=== PATIENT | female | born 1980 | race Caucasian/White ===

== ENCOUNTER 2020-01-27 01:12 | Emergency (ER) | payer SELFPAY ==
--- NOTE | ~2020-01-27 | CT_ITS ---
EXAMINATION: CT lumbar spine wo con DATE: 01/27/2020 01:54 INDICATION: Severe low back pain TECHNIQUE: Computed tomography (CT) of the lumbar spine was performed without intravenous contrast. T he dose-length product (DLP) was 1209.73 mGy-cm. Iterative reconstruction was used. COMPARISON: None FINDINGS: There is no fracture. The vertebral body heights and alignment are maintained. Mild loss of intervertebral disc space height is noted. Small degenerative osteophytes project from the anterior endplates of multiple vertebral bodies. IMPRESSION: 1. Mild lumbar spondylosis without acute findings. Reviewed, dictated and finalized at location A.
[2020-01-27 01:13] VITALS: BP 139/93; PULSE 98; RESP 16; TEMP 36.6; O2SAT 98
--- NOTE | 2020-01-27 01:15 | ED.BACK ---
HPI - Back Pain/Injury General Chief Complaint: Back Pain/Injury Stated Complaint: back pain Time Seen by Provider: 01/27/20 01:15 Source: patient Mode of arrival: ambulatory Limitations: no limitations History of Present Illness HPI Narrative: Patient is a 39-year-old female who presents for evaluation of severe back pain. Patient reports the back pain began a week ago, it started suddenly when she bent to pick something up from her refrigerator. Patient denies lifting anything heavy. She felt a popping sensation in her back, and has had pain in the middle lower back for 7 days, worsening. Pain is now sharp in nature, no burning type pain. No radiation into the buttocks. Patient reports worsening pain with movement. She denies fever, chills, fall, injury, no saddle anesthesia. No difficulty with bowel or bladder function. No history of cancer. Patient denies history of IV drug abuse. Patient denies urinary symptoms. Patient reports the pain has been so severe it is caused her to be nauseated with several episodes of nonbloody, nonbilious emesis. Related Data Allergies Allergy/AdvReac Type Severity Reaction Status Date / Time Penicillins Allergy Mild Verified 02/05/18 19:59 Review of Systems Review of Systems: Narrative: CONSTITUTIONAL: Denies fever CARDIOVASCULAR: Denies chest pain RESPIRATORY: Denies cough or dyspnea. GASTROINTESTINAL: Denies abdominal pain, reports nausea and vomiting SKIN: Denies rash MUSCULOSKELETAL: Reports lower lumbar pain NEUROLOGIC: Denies headache PMFSH Past Medical History Medical History (Updated 01/27/20 @ 03:22 by Rupali Jernigan MD) ADHD Hypothyroidism Surgical History Surgical History (Updated 01/27/20 @ 01:25 by Rupali Jernigan MD) H/O nasal septoplasty Social History Social History (Updated 01/27/20 @ 01:25 by Rupali Jernigan MD) Smoking status: Current every day smoker Tobacco type: cigarettes Alcohol intake: former Substance use: never Gender identity (if verbalized by the patient): Female Exam Narrative: Exam Narrative: GENERAL: Awake, alert, conversant HEAD: Normocephalic, atraumatic. EYES: PERRLA and EOMI. ENT: Nares clear, no rhinorrhea or epistaxis. Mucous membranes moist. NECK: Supple. CHEST: No respiratory distress, breathing even and non labored HEART: Regular rate, sinus rhythm ABDOMEN:Non distended, non tender Spine: No cervical spine tenderness. No thoracic spine tenderness. Positive lumbar midline tenderness about level of L4, L5. EXTREMITIES: Normal range of motion. No edema. SKIN: Warm, dry, no rash. NEURO:No focal deficits. Alert and oriented x3. Ambulatory with a narrow base, steady gait. Intact EHL/FHL strength bilaterally. Intact distal sensation. Course Vital Signs Vital signs: Vital Signs Temperature 36.6 C 01/27/20 01:13 Pulse Rate 98 01/27/20 01:13 Respiratory Rate 16 01/27/20 01:13 Blood Pressure 139/93 H 01/27/20 01:13 Pulse Oximetry 98 01/27/20 01:13 Temperature 36.6 C 01/27/20 01:13 Pulse Rate 89 01/27/20 02:35 Respiratory Rate 16 01/27/20 02:35 Blood Pressure 132/88 01/27/20 02:35 Pulse Oximetry 99 01/27/20 02:35 MDM - Back Pain/Injury MDM Narrative Medical decision making narrative: Given History and Exam the patient appears to be at low risk for Spinal Cord Compression Syndrome, Vertebral Malignancy/Mets, acute Spinal Fracture, Vertebral Osteomyelitis, Epidural Abscess, Infected or Obstructing Kidney Stone. Their presentation appears most likely to be secondary to non-emergent musculoskeletal etiology vs non-emergent disc herniation. Pain is reproducible, and patient has no other high risk factors such as history of malignancy, weight loss, infectious symptoms. ED Workup: No electrolyte derangement. No severe leukocytosis. No UTI. No acute vertebral findings on imaging. Pt with blood in UA and may have a kidney stone, although given pain is reproducible and wors
[2020-01-27] MEDS: MORPHINE SULFATE 4 MG/ML INJ IV PUSH (01:39)
[2020-01-27] MEDS: SODIUM CHLORIDE 0.9% IV 1,000 ML 999 ML IV CONT (01:39)
[2020-01-27] MEDS: ONDANSETRON INJ 4 MG/2 ML VIAL IV PUSH (01:40)
[2020-01-27] MEDS: KETOROLAC 15 MG/ML VIAL (*BKC) IV PUSH (01:44)
--- NOTE | 2020-01-27 01:49 | PC.NURSE ---
pt to ct via stretcher
[2020-01-27 02:02] LABS: Basophils Absolute Auto 0.1 K/mm3 (0.0-0.1); Basophils Percent Auto 0.9 % (0.2-1.2); Eosinophils Absolute Auto 0.2 K/mm3 (0-0.3); Eosinophils Percent Auto 2.2 % (0-4.4); Hematocrit 39.8 % (37.0-47.0); Hemoglobin 13.1 g/dL (12.0-15.0); Immature Granulocyte Absolute 0.03 K/mm3 (0.00-0.031); Immature Granulocyte Percent A 0.3 % (0-0.5); Lymphocytes Absolute Auto 2.95 K/mm3 (0.9-3.2); Lymphocytes Percent Auto 27.7 % (18.3-44.2); Mean Corpuscular HGB Conc 32.9 g/dl (32-36); Mean Corpuscular Hemoglobin 29.6 pg (26-34); Mean Platelet Volume 11.1 fl (7.4-10.4); Monocytes Absolute Auto 1.1 K/mm3 (0.1-0.6); Monocytes Percent Auto 10.6 % (2.6-8.5); Neutrophils Absolute Auto 6.2 K/mm3 (1.3-6.7); Neutrophils Percent Auto 58.3 % (45.5-73.1); Platelet Count Result 313 k/mm3 (150-375); Red Blood Count 4.42 M/mm3 (4.2-5.4); Red Cell Distribution Width 13.6 % (11.5-14.5); White Blood Count 10.6 K/mm3 (4.5-10.0)
[2020-01-27 02:20] LABS: Alanine Aminotransferase 15 U/L (4-35); Albumin Level 4.3 g/dL (3.5-5.1); Alkaline Phosphatase 76 U/L (38-126); Anion Gap 11.7 mmol/L (7-16); Aspartate Amino Transferase 19 U/L (14-36); Bilirubin,Total 0.4 mg/dL (0.2-1.3); Blood Urea Nitrogen 14 mg/dL (7-17); Calcium 8.9 mg/dL (8.4-10.2); Carbon Dioxide 26 mmol/L (22-30); Chloride 104 mmol/L (98-107); Estimated CRCL calculation 117 ml/min; Estimated Glomerular Filt Rate > 60; Glucose 100 mg/dL (65-105); Lipase 149 U/L (23-300); Potassium 3.7 mmol/L (3.4-5.0); Sodium 138 mmol/L (137-145)
[2020-01-27 02:35] VITALS: BP 132/88; PULSE 89; RESP 16; O2SAT 99
--- NOTE | 2020-01-27 02:51 | PC.NURSE ---
pt attempting to urinate at this time.
--- NOTE | 2020-01-27 02:57 | PC.NURSE ---
urine sent down to lab at this time.
[2020-01-27 03:14] LABS: Add Urine Microscopic? YES; Appearance Urine Clear (Clear); Bacteria Urine Trace /hpf; Bilirubin Urine Negative (Negative); Blood Urine 2+ (Negative); Color Urine Straw (Yellow); Glucose Urine UA Negative (Negative); Ketones Urine Negative (Negative); Leukocyte Esterase Ur Negative LEU/UL (Negative); Mucus Urine Rare /lpf; Nitrate Urine Negative (Negative); Protein Urine Negative (Negative); Specific Grav Ur 1.009 (1.001-1.035); Squamous Epithelial Cell Urine Many /hpf (Few); Urobilinogen Urine Negative mg/dL (<2.0); WBC Urine 0-3 /hpf
[2020-01-27 03:32] VITALS: BP 129/74; PULSE 78; RESP 16; O2SAT 98
== END 2020-01-27 03:35 | disposition home or self-care (01) ==
PROVIDERS: Emergency Provider Emergency Medicine; PCP Family Medicine
DX: S39.012A Strain of muscle, fascia and tendon of lower back, initial encounter (principal); R11.2 Nausea with vomiting, unspecified; R31.9 Hematuria, unspecified; E03.9 Hypothyroidism, unspecified; F17.210 Nicotine dependence, cigarettes, uncomplicated; X50.9XXA Other and unspecified overexertion or strenuous movements or postures, initial encounter
CPT/HCPCS: 36415; 72131; 80053; 81001; 81025; 83690; 85025; 96361; 96374; 96375; 99284; J1100; J1885; J2270; J2405; J7030

== ENCOUNTER 2021-06-13 06:22 | Emergency (ER) | payer SELFPAY ==
[2021-06-13] VITALS (7 sets, daily range): BP systolic 121–163; BP diastolic 61–101; PULSE 76–97; RESP 15–20; TEMP 36.5; O2SAT 94–98
--- NOTE | ~2021-06-13 | CT_ITS ---
EXAMINATION: CTA chest abdomen DATE: 06/13/2021 09:06 INDICATION: Acute onset severe chest pain TECHNIQUE: Computed tomographic angiography (CTA) of the chest and abdomen was performed with 100 mL Omnipque-350 intravenous contrast. Maximum intensity projection 3D-reconstructions of the aorta and o ther arteries were constructed by the technologist on a separate workstation. The dose-length product (DLP) was 1251.20 mGy-cm. Automated exposure control and iterative reconstruction technique were emp loyed. COMPARISON: None. FINDINGS: CHEST CTA: There is an acute dissection of the thoracic aorta starting just beyond the origin of the left subcla vian artery and continuing into the abdomen to the level of the aortic bifurcation. There is a small amount of intramural hematoma of the aorta at the origin of the dissection. There are patchy airspace opacities of the lungs. There is mild mediastinal and bilateral hilar lymphadenopathy. The heart siz e is normal. ABDOMEN CTA: As noted above, the aortic dissection continues through the abdominal aorta to the level of the aorti c bifurcation. The celiac axis, superior mesenteric artery, renal arteries, and inferior mesenteric a rtery appear to arise from the true lumen. The liver is diffusely low in attenuation when compared wi th the spleen, consistent with hepatic steatosis. The spleen, pancreas, and right adrenal gland are n ormal. There is mild thickening of the left adrenal gland which maintains its adreniform shape. A sto ne is present in the nondistended gallbladder. The kidneys are unremarkable. There are no pathologica lly enlarged abdominal lymph nodes. There is no free intraperitoneal gas or evidence of bowel obstruc tion. IMPRESSION: 1. Acute aortic dissection beginning in the proximal descending thoracic aorta and continuing to the level of the aortic bifurcation. Small amount of intramural hematoma seen near the origin of the diss ection. These findings were discussed with Dr. Raysa Kyle MD in the Emergency Department at 0922 hours on 06/13/2021. 2. Patchy bilateral airspace opacities, consistent with atelectasis versus pneumonia. 3. Mediastinal and bilateral hilar lymphadenopathy, likely reactive. 4. Cholelithiasis without evidence of cholecystitis. Reviewed, dictated and finalized at location A. HEAD OPERATOR IMPRESSION: 1. Acute aortic dissection beginning in the proximal descending thoracic aorta and continuing to the level of the aortic bifurcation. Small amount of intramur al hematoma seen near the origin of the dissection. These findings were discuss ed with Dr. Raysa Kyle MD in the Emergency Department at 0922 hours on 06/03. 2. Patchy bilateral airspace opacities, consistent with atelectasis versus pneu monia. 3. Mediastinal and bilateral hilar lymphadenopathy, likely reactive. 4. Cholelithiasis without evidence of cholecystitis.
--- NOTE | ~2021-06-13 | XR_ITS ---
EXAMINATION: XR chest 1V portable INDICATION: Sudden onset chest pain TECHNIQUE: Portable AP chest at 0633 hours COMPARISON: None available FINDINGS: There are patchy airspace opacities throughout the lungs. No pleural effusion or pneumothor ax is identified. The cardiomediastinal silhouette is normal. The visualized osseous structures are u nremarkable. IMPRESSION: 1. Patchy bilateral airspace opacities, consistent with atelectasis versus pneumonia. Reviewed, dictated and finalized at location A. HORE WIND OPERATIONS MANAGER IMPRESSION: 1. Patchy bilateral airspace opacities, consistent with atelectasis versus pneu monia.
--- NOTE | 2021-06-13 06:29 | ECG_ITS ---
Measurements Intervals [place] Rate: 96 P: 82 CA: 128 QRS: 51 QRSD: 90 T: 48 QT: 366 QTc: 462 Interpretive Statements SINUS RHYTHM POSSIBLE LEFT ATRIAL ENLARGEMENT BASELINE ARTIFACT- II, III, V1, V3-V5 BORDERLINE ECG Electronically Signed On 06-13-2021 7:59:48 TON CONTAINER SHIPPER by Jamie Glover D.O.
[2021-06-13 06:46] LABS: Basophils Absolute Auto 0.1 K/mm3 (0.0-0.1); Basophils Percent Auto 0.8 % (0.2-1.2); Eosinophils Absolute Auto 0.4 K/mm3 (0-0.3); Eosinophils Percent Auto 2.6 % (0-4.4); Hematocrit 39.4 % (37.0-47.0); Hemoglobin 12.7 g/dL (12.0-15.0); Immature Granulocyte Percent A 0.8 % (0-0.5); Lymphocytes Absolute Auto 1.94 K/mm3 (0.9-3.2); Lymphocytes Percent Auto 14.6 % (18.3-44.2); Mean Corpuscular HGB Conc 32.2 g/dl (32-36); Mean Corpuscular Hemoglobin 28.9 pg (26-34); Mean Corpuscular Volume 89.5 fl (80-100); Mean Platelet Volume 10.3 fl (7.4-10.4); Monocytes Absolute Auto 1.2 K/mm3 (0.1-0.6); Monocytes Percent Auto 8.7 % (2.6-8.5); Neutrophils Absolute Auto 9.7 K/mm3 (1.3-6.7); Neutrophils Percent Auto 72.5 % (45.5-73.1); Platelet Count Result 263 k/mm3 (150-375); Red Cell Distribution Width 14.7 % (11.5-14.5); White Blood Count 13.3 K/mm3 (4.5-10.0)
--- NOTE | 2021-06-13 06:52 | PC.NURSE ---
pt attempted urine sample, but was unable to go. pt declining straight catheter at this time.
[2021-06-13 06:55] LABS: INR 0.9; Prothrombin Time 12.5 Seconds (11.1-14.7)
[2021-06-13 06:56] LABS: Alanine Aminotransferase 18 U/L (4-35); Alkaline Phosphatase 92 U/L (38-126); Anion Gap 5 mmol/L (8-16); Aspartate Amino Transferase 23 U/L (14-36); Bilirubin,Total 0.5 mg/dL (0.2-1.3); Blood Urea Nitrogen 9 mg/dL (7-17); Calcium 8.7 mg/dL (8.4-10.2); Carbon Dioxide 29 mmol/L (22-30); Chloride 102 mmol/L (98-107); Estimated CRCL calculation 140 ml/min; Estimated Glomerular Filt Rate > 60; Glucose 144 mg/dL (65-110); Lipase 75 U/L (23-300); Partial Thromboplastin Time 29.9 SECONDS (22.3-36.8); Potassium 3.9 mmol/L (3.4-5.0); Sodium 136 mmol/L (137-145)
[2021-06-13 07:07] LABS: Troponin I < 0.012 ng/mL (0.000-0.034)
--- NOTE | 2021-06-13 07:31 | ED.BACK ---
HPI - Back Pain/Injury General Chief Complaint: Back Pain/Injury Stated Complaint: back pain Time Seen by Provider: 06/13/21 07:30 Source: patient and family Limitations: no limitations History of Present Illness HPI Narrative: Patient presents with severe excruciating pain between shoulder blade wake her up 1 hour prior to arrival to the emergency room. Radiating to the chest. With slight shortness of breath. Patient denies having similar symptoms. 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 Patient is fully vaccinated, she denies any fever, chills, nausea, vomiting, abdominal pain. Or recent trauma. Patient smokes, uses marijuana occasionally, does not drink Related Data Allergies Allergy/AdvReac Type Severity Reaction Status Date / Time Penicillins Allergy Mild Unknown Verified 06/13/21 06:31 Review of Systems Review of Systems: CONSTITUTIONAL: Denies fever, chills, or sweats. EYES: Denies visual changes, redness, or discharge. ENT: Denies rhinorrhea, congestion, sore throat, or otalgia. CARDIOVASCULAR: Denies chest pain, palpitations, or edema. RESPIRATORY: Denies cough or dyspnea. GASTROINTESTINAL: Denies abdominal pain, nausea, vomiting, or diarrhea. GENITOURINARY: Denies dysuria or hematuria. SKIN: Denies rash or itching. MUSCULOSKELETAL: Denies back pain, joint pain, or myalgia. NEUROLOGIC: Denies headache, numbness, or weakness. PSYCHIATRIC: Denies anxiety or depression. PMFSH Past Medical History Medical History ADHD Hypothyroidism Surgical History Surgical History H/O nasal septoplasty Social History Social History Smoking status: Current every day smoker Tobacco type: cigarettes Alcohol intake: former Substance use: never Gender identity (if verbalized by the patient): Female Exam Narrative: General appearance: Well-developed, well-nourished, looks in pain Skin: Normal color Head: Normocephalic, nontraumatic Eyes: Clear conjunctiva ENT: Oropharynx normal, ears normal, nose normal Neck: Supple, nontender Chest and respiratory: Airway patent, no respiratory distress, no accessory muscle use Heart: Regular rate/rhythm Abdomen: Soft, nontender, no organomegaly, quiet bowel sounds Vascular: Normal peripheral pulses, normal capillary refill. 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 Gr, vascular surgeon at [facility] who accepted patient transfer Date: 06/13/21 Time: 09:46 Consultation #2: Dr. Storm, emergency room physician at [facility] who asked patient transfer Date: 06/13/21 Time: 09:46 Vital Signs Vital signs: Vital Signs Temperature 36.5 C 06/13/21 06:21 Pulse Rate 97 06/13/21 06:21 Respiratory Rate 20 06/13/21 06:21 Blood Pressure 137/101 H 06/13/21 06:21 Pulse Oximetry 96 06/13/21 06:21 Temperature 36.5 C 06/13/21 06:21 Pulse Rate 79 06/13/21 09:30 Respiratory Rate 18 06/13/21 09:30 Blood Pressure 153/78 H 06/13/21 09:30 Pulse Oximetry 98 06/13/21 09:30 MDM - Back Pain/Injury MDM Narrative Medical decision making narrative: Sudden severe pain between shoulder blades Dissection, PE, less likely epidural abscess are my concern. Labs, CTA chest and abdomen to rule out dissection and PE ordered. IV fluid, IV Dilaudid and Valium ordered Differential Diagnosis Differe
[2021-06-13] MEDS: ONDANSETRON INJ 4 MG/2 ML VIAL IV PUSH (07:48)
[2021-06-13] MEDS: HYDROmorphone HCL INJ (*CRX) 1 MG/ML SYR 0.5 MG IV PUSH (07:48)
--- NOTE | 2021-06-13 08:02 | PC.NURSE ---
Patient placed on 2L via nasal cannula. Patient states I have been told I have sleep apnea. Patient O2 85% on room air while patient is asleep.
--- NOTE | 2021-06-13 08:41 | PC.NURSE ---
Unable to obtain urine specimen and bedside test after a straight catheter attempt. Patient aware of the need to get a CT scan.
[2021-06-13 08:43] LABS: CRP 1.7 mg/dL (<1.0)
[2021-06-13] MEDS: diazePAM INJ (*CRX) 10 MG/2 ML SYRINGE 5 MG IV PUSH (08:47)
[2021-06-13 09:04] LABS: D Dimer < 0.22 ug/mL (<0.48)
[2021-06-13 09:05] LABS: Erythrocyte Sedimentation Rate 17 mm/hr (0-20)
--- NOTE | 2021-06-13 09:32 | PC.NURSE ---
Patient on 4L via nasal cannula.
[2021-06-13] MEDS: LABETALOL HCL INJ 100 MG/20 ML VIAL 20 MG IV PUSH (09:34)
[2021-06-13] MEDS: LABETALOL HCL INJ 200 MG in DEXTROSE 5% IN WATER 160 ML 120 MG IV CONT (09:55)
== END 2021-06-13 10:00 | disposition short-term general hospital (02) ==
PROVIDERS: General Practice; Emergency Provider Emergency Medicine
DX: I71.01 Dissection of thoracic aorta (principal); E03.9 Hypothyroidism, unspecified; F17.210 Nicotine dependence, cigarettes, uncomplicated; K80.20 Calculus of gallbladder without cholecystitis without obstruction; R91.8 Other nonspecific abnormal finding of lung field; R94.31 Abnormal electrocardiogram [ECG] [EKG]
CPT/HCPCS: 36415; 71045; 71275; 74175; 80053; 83690; 84484; 85025; 85380; 85610; 85652; 85730; 86140; 93005; 96374; 96375; 99291; J1170; J2405; J3360; J7060; Q9967

== ENCOUNTER 2021-06-26 13:33 | Emergency (ER) | payer MEDICAID, SELFPAY ==
[2021-06-26 15:24] VITALS: BP 111/55; PULSE 90; RESP 18; TEMP 36.3; O2SAT 97
[2021-06-26 18:01] VITALS: BP 108/59; PULSE 97; O2SAT 100
--- NOTE | 2021-06-26 19:50 | PC.NURSE ---
dressing to Right groin changed. noted minimal serosanguineous drainage with no odor, no puss. clean, dry 4x4 and Tegaderm placed on wound.
[2021-06-26 20:12] VITALS: BP 117/52; PULSE 84; RESP 12; O2SAT 94
--- NOTE | 2021-06-26 20:15 | ED.GENADULT ---
HPI - General Adult General Chief complaint: Wound/Laceration Stated complaint: oozing from groin puncture site Time Seen by Provider: 06/26/21 19:57 History of Present Illness HPI narrative: Patient is a 40-year-old female who presents the ER with concerns regarding a vascular access site wound. On 06/13/2021 patient was diagnosed with aortic dissection. She went to [facility] where she underwent endovascular repair. They accessed the right femoral artery. She reports they placed Dermabond from the access site. She was hospitalized until 2 days ago when she was discharged. Yesterday during the dressing change her Dermabond came off. She has a 5 mm diameter skin defect. She has had some clear yellow fluid draining from there and is also had some blood-tinged fluid drained. No hemorrhage. Denies any pain in the region. No swelling. No bruising. She has normal range of motion and no difficulty with ambulation. She denies any numbness or tingling or pain distal on her right lower extremity. Related Data Allergies Allergy/AdvReac Type Severity Reaction Status Date / Time Penicillins Allergy Mild Unknown Verified 06/13/21 06:31 Review of Systems Review of Systems: All systems reviewed & are unremarkable except as noted in HPI and below Constitutional: Constitutional: Denies chills, Denies fever(s) and Denies weakness Cardiovascular: Cardiovascular: Denies chest pain, Denies rapid heart rate and Denies radiating jaw, neck or arm pain Respiratory: Respiratory: Denies cough and Denies dyspnea Musculoskeletal: Musculoskeletal: Denies arthralgias and Denies joint swelling Integumentary/Breasts: Skin/Breast: Denies erythema and Denies rash Comments: Wound right inguinal region from catheter access. Neurologic: Denies focal weakness and Denies numbness [facility] Past Medical History Medical History (Updated 06/26/21 @ 20:26 by Rico Israel MD) ADHD Aortic dissection Hypothyroidism Surgical History Surgical History (Updated 06/26/21 @ 20:19 by Rico Israel MD) H/O nasal septoplasty S/P aortic dissection repair 06/13/21 Social History Social History Smoking status: Current every day smoker Tobacco type: cigarettes Alcohol intake: former Substance use: never Gender identity (if verbalized by the patient): Female Exam Narrative: GENERAL: Well-appearing, well-nourished, and in no acute distress. HEAD: Normocephalic, atraumatic. CHEST: Clear to auscultation. No respiratory distress. HEART: Regular rate and rhythm. Normal peripheral pulses. ABDOMEN: Soft, nontender, nondistended. EXTREMITIES: Normal range of motion. No edema. No bruit of the right femoral artery. SKIN: Warm, dry, no rash. 5 mm diameter skin defect right inguinal region from vascular access site. No cellulitis or drainage. Gauze covering with small amount of serosanguineous fluid observed. No swelling or bruising in the area with normal femoral pulse. NEURO: Sensation intact right lower extremity. Alert and oriented x3. PSYCH: Normal mood and affect. Course Course Emergency Course: Patient has a wound that will need to heal by secondary intention. No swelling/bruising/pain/bruit to suggest possible pseudoaneurysm. No outward signs of infection. Discussed return precautions with patient and she verbalized understanding. Vital Signs Vital signs: Vital Signs Temperature 97.3 F L 06/26/21 15:24 Pulse Rate 90 06/26/21 15:24 Respiratory Rate 18 06/26/21 15:24 Blood Pressure 111/55 L 06/26/21 15:24 Pulse Oximetry 97 06/26/21 15:24 Temperature 97.3 F L 06/26/21 15:24 Pulse Rate 84 06/26/21 20:12 Respiratory Rate 12 06/26/21 20:12 Blood Pressure 117/52 L 06/26/21 20:12 Pulse Oximetry 94 06/26/21 20:12 Medical Decision Making Vital Signs Vital Signs: Vital Signs Temperature 97.3 F L 06/26/21 15:24 Pulse Rate 90 06/26/21 15:24 Respir
[2021-06-26 21:04] VITALS: BP 121/54; PULSE 86; RESP 16; O2SAT 96
== END 2021-06-26 21:05 | disposition home or self-care (01) ==
PROVIDERS: Emergency Provider Emergency Medicine
DX: T81.31XA Disruption of external operation (surgical) wound, not elsewhere classified, initial encounter (principal); E03.9 Hypothyroidism, unspecified; F17.200 Nicotine dependence, unspecified, uncomplicated
CPT/HCPCS: 99282

== ENCOUNTER 2021-07-28 10:39 | Emergency (ER) | payer MEDICAID, SELFPAY ==
[2021-07-28 10:49] VITALS: BP 108/45; PULSE 70; RESP 16; TEMP 37.7; O2SAT 98
[2021-07-28 10:55] VITALS: BP 108/45; PULSE 70; RESP 16; TEMP 37.7; O2SAT 98
--- NOTE | 2021-07-28 10:57 | ED.SKABFB ---
HPI - Skin/Abscess/Foreign Bdy General Chief complaint: Skin/Abscess/Foreign Body Stated complaint: lump on right leg Time Seen by Provider: 07/28/21 10:57 Source: patient, RN notes reviewed and old records reviewed Mode of arrival: ambulatory Limitations: no limitations History of Present Illness HPI narrative: 40-year-old female presents to the [facility] with a red raised bump to the lower right anterior leg. Patient states that she shaved her legs and 2 days later developed this red area, has been there for about 1 week and keeps getting bigger and has increased redness today MD complaint: abscess/boil Related Data Home Medications Medication Instructions Recorded Confirmed albuterol sulfate 2 puff INHALATION DAILY 07/28/21 07/28/21 amlodipine 10 mg PO DAILY 07/28/21 07/28/21 atorvastatin 80 mg PO DAILY 07/28/21 07/28/21 lisinopril 40 mg PO DAILY 07/28/21 07/28/21 metformin 500 mg PO DAILY 07/28/21 07/28/21 metoprolol tartrate 100 mg PO DAILY 07/28/21 07/28/21 Allergies Allergy/AdvReac Type Severity Reaction Status Date / Time Penicillins Allergy Mild Unknown Verified 06/13/21 06:31 Review of Systems Review of Systems: All systems reviewed & are unremarkable except as noted in HPI and below Constitutional: Constitutional: Reports no additional constitutional complaints, Denies chills and Denies fever(s) Eyes: Eyes: Reports no additional eye complaints ENT: Reports system reviewed and no additional complaints, except as documented Cardiovascular: Cardiovascular: Reports no additional cardiovascular complaints, Denies chest pain and Denies radiating jaw, neck or arm pain Respiratory: Respiratory: Reports no additional respiratory complaints, Denies cough, Denies dyspnea and Denies wheezing Gastrointestinal: Gastrointestinal: Reports no additional gastrointestinal complaints, Denies abdominal pain, Denies nausea and Denies vomiting Musculoskeletal: Musculoskeletal: Reports no additional musculoskeletal complaints and Denies back pain Integumentary/Breasts: Skin/Breast: Reports as per HPI and Reports erythema (Right lower anterior leg) Neurologic: Reports system reviewed and no additional complaints, except as documented Psychiatric: Psychiatric: Reports no additional psychiatric complaints Allergic/Immunologic: Allergic/Immunologic: Reports no additional allergic/immunologic complaints PMFSH Past Medical History Medical History ADHD Aortic dissection Hypothyroidism Surgical History Surgical History H/O nasal septoplasty S/P aortic dissection repair 06/13/21 Social History Social History Smoking status: Current every day smoker Tobacco type: cigarettes Alcohol intake: former Substance use: never Gender identity (if verbalized by the patient): Female Comments At the time of my signature, I reviewed and agree with the nursing past medical, surgical, social, and family history. There is no relevant family history pertinent to the patient complaint. Exam Const: General: healthy appearing, no acute distress and alert Nutritional Appearance: well nourished and obese Orientation/consciousness: patient oriented x3 Limitations: no limitations HENMT: Head: normal to inspection Eyes: Pupils: Equal, round and reactive pupils present Neck: Neck: normal visual inspection, no lymphadenopathy and no meningeal signs Chest: Chest palpation & inspection: normal inspection of the chest Resp: Effort & Inspection: normal respiratory effort Cardio: Rate: regular rate Rhythm: regular rhythm Back/Spine/Pelvis: Back: no CVA tenderness Skin: General skin exam: normal color and fluctuance (1-1/2 x 1-1/2 cm fluctuant red, warm area lower anterior leg right) Neuro: General: patient oriented x3, moves all extremities, no meningeal signs and no focal motor
== END 2021-07-28 11:20 | disposition home or self-care (01) ==
PROVIDERS: Emergency Provider Nurse Practitioner
DX: L02.415 Cutaneous abscess of right lower limb (principal); Z87.891 Personal history of nicotine dependence; E03.9 Hypothyroidism, unspecified
CPT/HCPCS: 10060; 87070; 87075; 87205; 99213; G0463

== ENCOUNTER 2021-12-17 13:39 | Outpatient (CLI) | payer BC, SELFPAY ==
--- NOTE | ~2021-12-17 | CT_ITS ---
EXAMINATION: CTA brain DATE: 12/17/2021 14:10 INDICATION: Bilateral pulsatile tinnitus. TECHNIQUE: Computed tomographic angiography (CTA) of the head was performed without and with 100 mL O mnipaque 300 intravenous contrast. Automated exposure control and iterative reconstruction technique were employed. The dose-length product was 921.90 mGy-cm. Maximum intensity projection 3D reconstruc tions were created. Volume-rendered 3D reconstructions of the intracranial arteries were created by marielena grey technologist on a separate workstation. COMPARISON: CT sinuses 06/14/2013 FINDINGS: There is no intracranial hemorrhage, acute infarction, or abnormal intracranial mass lesion . The ventricles are normal in size. The tympanic cavities and mastoid air cells are normal. There is mild mucosal thickening in the paranasal sinuses. Right vertebral artery is dominant. There is no si gnificant stenosis of basilar artery or the posterior cerebral arteries. There is no significant sten osis of the intracranial internal carotid arteries or anterior or middle cerebral arteries. Anterior communicating artery is normal. The posterior communicating arteries are normal. There is no aneurysm . IMPRESSION: 1. Normal brain. No aneurysm or significant intracranial arterial stenosis. Reviewed, dictated and finalized at location B.
[2021-12-17 14:04] LABS: Estimated Glomerular Filt Rate > 60
== END 2021-12-17 13:40 | disposition home or self-care (01) ==
PROVIDERS: PCP Physician Assistant; Visit Provider Otolaryngology
DX: H93.A3 Pulsatile tinnitus, bilateral (principal)
CPT/HCPCS: 70496; Q9967

== ENCOUNTER 2021-12-31 10:09 | Outpatient (CLI) | payer BC, SELFPAY ==
--- NOTE | 2021-12-31 13:23 | WPDPFTINT ---
PFT Procedure Performed PFT Procedure Performed Plethysmography (Lung Vol) Diffusing Cap (DLCO) Flow Vol Loop Spirometry w/o Bronchodil PFT Interpretation This is a pulmonary function test with spirometry, plethysmography and diffusing capacity. The test was performed and results interpreted in accordance with the 2019 and 2005 ATS/ERS Task Force guidelines respectively using the Global Lung Function Initiative-2012 reference equations. Patient demonstrated good effort and cooperation. Reproducibility criteria were met. The quality of the spirometry maneuver was Grade A. Findings: Spirometry: The contour the inspiratory and expiratory flow tracing are normal. The FVC is 3.25 L, 99% predicted. The FEV1 is 2.71 L, 100% predicted. The FEV1: FVC ratio was 83%. Plethysmography: The total lung capacity is 3.89 L, 84% predicted. The functional residual capacity is 1.34 L, 53% predicted. The residual volume is 0.64 L, 44% predicted. Diffusing capacity: The diffusing capacity unadjusted for hemoglobin and carboxyhemoglobin is 16.4, 73% predicted. The diffusing capacity adjusted for alveolar volume is 4.03, 83% predicted. Impression: The spirometry is normal without evidence of an obstructive abnormality. The total lung capacity is normal with a decreased functional residual capacity and residual volume. This is an abnormal but nonspecific lung volume pattern. The diffusing capacity is normal. There are no prior studies for comparison
== END 2021-12-31 10:10 | disposition home or self-care (01) ==
LOC: ANHPFT 10:11
PROVIDERS: PCP Physician Assistant; Visit Provider Physician Assistant
DX: F17.200 Nicotine dependence, unspecified, uncomplicated (principal)
CPT/HCPCS: 94375; 94726; 94729

== ENCOUNTER 2022-10-04 15:12 | Outpatient (CLI) | payer BC, SELFPAY ==
--- NOTE | ~2022-10-04 | MM_ITS ---
EXAMINATION: MM screening naldo BI w sriram HISTORY: Screening mammogram TECHNIQUE: Craniocaudal and mediolateral oblique 3-D tomosynthesis images were obtained and synthetic 2-D images were generated. CAD analysis was submitted and interpreted. COMPARISON: 03/28/2019 bilateral screening mammogram examination BREAST PARENCHYMAL COMPOSITION: The breasts are almost entirely fatty. FINDINGS: There is no evidence of suspicious mass, calcification, or architectural distortion to sugg est malignancy in either breast. There has been no suspicious interval change. IMPRESSION: 1. No mammographic evidence of malignancy. 2. Recommend routine screening mammography in one year. BI-RADS Category 1: Negative Reviewed, dictated and finalized at location A.
== END 2022-10-04 15:13 | disposition home or self-care (01) ==
LOC: ANHIMG 15:15
PROVIDERS: PCP Physician Assistant; Visit Provider Physician Assistant
DX: Z12.31 Encounter for screening mammogram for malignant neoplasm of breast (principal)
CPT/HCPCS: 77063; 77067

== ENCOUNTER 2022-12-29 16:27 | Emergency (ER) | payer BC, SELFPAY ==
[2022-12-29 16:35] VITALS: BP 107/46; PULSE 73; RESP 18; TEMP 36.7; O2SAT 100
--- NOTE | 2022-12-29 16:51 | ED.EXTPRO ---
HPI - Extremity Problem General Chief complaint: Extremity Injury, Upper Stated complaint: Right hand swollen Time Seen by Provider: 12/29/22 16:52 Source: patient and RN notes reviewed Mode of arrival: ambulatory Limitations: no limitations History of Present Illness HPI Narrative: 42-year-old female presents with concern for pain, swelling, bruising to the dorsal right hand. Reports this morning she noticed a bump on the back of her hand, the bump went away and now she has a bruise that is tender. She denies any known injury or trauma. She denies decreased sensation, strength, range of motion in the hand or digits. MD Complaint: extremity swelling Related Data Home Medications Medication Instructions Recorded Confirmed albuterol sulfate 90 mcg/actuation 2 puff inhalation DAILY 07/28/21 12/29/22 aerosol inhaler amlodipine 10 mg tablet 10 mg PO DAILY 07/28/21 12/29/22 atorvastatin 80 mg tablet 80 mg PO DAILY 07/28/21 12/29/22 lisinopril 40 mg tablet 40 mg PO DAILY 07/28/21 12/29/22 metformin 500 mg tablet 500 mg PO DAILY 07/28/21 12/29/22 metoprolol tartrate 100 mg tablet 100 mg PO DAILY 07/28/21 12/29/22 levothyroxine 175 mcg tablet 175 mcg DIRECTED 12/29/22 12/29/22 mometasone 0.1 % topical ointment 1 applic topical DIRECTED 12/29/22 12/29/22 tizanidine 4 mg tablet mg 12/29/22 Allergies Allergy/AdvReac Type Severity Reaction Status Date / Time Penicillins Allergy Mild Unknown Verified 12/03/21 09:22 Review of Systems Review of Systems: CONSTITUTIONAL: Denies malaise, chills, sweats, or fever. SKIN: Denies rash or itching, open skin, laceration, abrasion, redness, warmth MUSCULOSKELETAL: Reports right hand pain and bruising NEUROLOGIC: Denies numbness, weakness All systems reviewed & are unremarkable except as noted in HPI and below PMFSH Past Medical History Medical History ADHD Aortic dissection Hypothyroidism Surgical History Surgical History H/O nasal septoplasty S/P aortic dissection repair 06/13/21 Family History Family History Grandparent Diabetes mellitus Hypertension Father Hypertension Social History Social History Smoking status: Current every day smoker Tobacco type: e-cigarettes/vaping Alcohol intake: former Substance use: never Gender identity (if verbalized by the patient): Female Comments At time of signature, agree with nursing past medical, surgical, social and family history. There is no relevant family history pertinent to the presenting complaint Exam Narrative: GENERAL: Well-appearing, well-nourished, and in no acute distress. HEAD: Normocephalic, atraumatic. EYES: PERRLA, conjunctivae clear NECK: Supple. CHEST: Speaks in full sentences. No respiratory distress. HEART: Regular rate and rhythm. Normal and equal peripheral pulses. EXTREMITIES: Right hand, digits have normal strength and sensation, normal range of motion. Slightly raised hematoma approximately 4 cm in diameter noted to the dorsal right hand. 5/5 strength with wrist and digit flexion and extension. Normal sensation with sensitivity to light touch and pain. No point tenderness. No open wounds, no skin tenting, no devitalized tissue or atrophy, no trophic changes, no obvious deformity, alignment normal, nearby joints and structures intact. Distal pulses palpable and equal bilaterally, skin warm, dry, pink. Capillary refill less than 3 seconds. SKIN: Warm, dry, no rash. NEURO: Alert and oriented x3. PSYCH: Normal mood and affect Course Course Emergency Course: Patient is aware of diagnosis, understands and agrees to treatment plan. Anticipatory guidance given. Patient agrees to follow-up as directed and is aware of reasons to seek care at the emergency
== END 2022-12-29 17:05 | disposition home or self-care (01) ==
PROVIDERS: Emergency Provider Nurse Practitioner; PCP Physician Assistant
DX: S60.221A Contusion of right hand, initial encounter (principal); X58.XXXA Exposure to other specified factors, initial encounter; E03.9 Hypothyroidism, unspecified
CPT/HCPCS: 99212; G0463

== ENCOUNTER 2023-01-29 19:28 | Emergency (ER) | payer BC, SELFPAY ==
[2023-01-29 19:41] VITALS: BP 131/75; PULSE 90; RESP 16; TEMP 36.9; O2SAT 99
--- NOTE | 2023-01-29 20:02 | ED.GENADULT ---
HPI - General Adult General Chief complaint: Extremity Injury, Lower Stated complaint: right leg pain Source: patient Mode of arrival: ambulatory Limitations: no limitations History of Present Illness HPI narrative: Patient presents for evaluation of pain and swelling in the right lower extremity. She indicates she was squatting over 2 days ago when she felt something tear in her posterior right calf. Since that time she has had severe pain which is interfering with her ability to ambulate. She rates her pain 10/10 severity. She has an underlying history of hypertension, hyperlipidemia, prediabetes, and aortic dissection. She states she has attempted to take tylenol for pain, which has had no impact on reducing her pain levels. She indicates she was stool in past that she can only take Tylenol for pain. She reports muscle cramping in her calf and feels warmth in the affected area. She was planning on going to the emergency room but elected to come here instead. Related Data Home Medications Medication Instructions Recorded Confirmed albuterol sulfate 90 mcg/actuation 2 puff inhalation DAILY 07/28/21 12/29/22 aerosol inhaler amlodipine 10 mg tablet 10 mg PO DAILY 07/28/21 12/29/22 atorvastatin 80 mg tablet 80 mg PO DAILY 07/28/21 12/29/22 lisinopril 40 mg tablet 40 mg PO DAILY 07/28/21 12/29/22 metformin 500 mg tablet 500 mg PO DAILY 07/28/21 12/29/22 metoprolol tartrate 100 mg tablet 100 mg PO DAILY 07/28/21 12/29/22 levothyroxine 175 mcg tablet 175 mcg DIRECTED 12/29/22 12/29/22 tizanidine 4 mg tablet mg 12/29/22 Allergies Allergy/AdvReac Type Severity Reaction Status Date / Time Penicillins Allergy Mild Unknown Verified 01/29/23 19:30 Review of Systems Review of Systems: CONSTITUTIONAL: Denies fever, chills, or sweats. EYES: Denies visual changes, redness, or discharge. ENT: Denies rhinorrhea, congestion, sore throat, or otalgia. CARDIOVASCULAR: Denies chest pain, palpitations, or edema. RESPIRATORY: Denies cough or dyspnea. GASTROINTESTINAL: Denies abdominal pain, nausea, vomiting, or diarrhea. GENITOURINARY: Denies dysuria or hematuria. SKIN: Reports warmth and redness to the right calf. MUSCULOSKELETAL: Reports pain in the right calf. Reports difficulty ambulating. NEUROLOGIC: Denies headache, numbness, dizziness, or weakness. PSYCHIATRIC: Denies anxiety or depression. FORMERLY [facility], [facility]–1983 Past Medical History Medical History ADHD Aortic dissection Hyperlipidemia Hypertension Hypothyroidism Surgical History Surgical History H/O nasal septoplasty S/P aortic dissection repair 06/13/21 Family History Family History Grandparent Diabetes mellitus Hypertension Father Hypertension Social History Social History Smoking status: Former smoker Tobacco type: e-cigarettes/vaping Alcohol intake: former Substance use: never Living arrangements: with family Gender identity (if verbalized by the patient): Female Sexual Orientation (if Verbalized by the Patient): Lesbian, Jordan, or Homosexual Spiritual care concerns: No Exam Narrative: GENERAL: Well-appearing, well-nourished, and in no acute distress. HEAD: Normocephalic, atraumatic. EYES: PERRLA and EOMI. ENT: Nares clear, no rhinorrhea or epistaxis. Mucous membranes moist. Oropharynx without tonsillar hypertrophy exudate or other lesions. Bilateral TMs pearly carrion nonbulging NECK: Supple. No adenopathy or masses. No carotid bruits or JVD CHEST: Clear to auscultation. No respiratory distress. No wheezes rales or rhonchi HEART: Regular rate and rhythm. No murmur heard. Normal peripheral pulses. ABDOMEN: Soft, nontender, nondistended, normal active bowel sounds. EXTREMITIES: patient is exqui
== END 2023-01-29 20:04 | disposition short-term general hospital (02) ==
PROVIDERS: Emergency Provider Nurse Practitioner; PCP Physician Assistant
DX: M79.661 Pain in right lower leg (principal); F17.290 Nicotine dependence, other tobacco product, uncomplicated; E78.5 Hyperlipidemia, unspecified; I10 Essential (primary) hypertension; E03.9 Hypothyroidism, unspecified; R73.03 Prediabetes
CPT/HCPCS: 99212; G0463

== ENCOUNTER 2023-01-29 21:03 | Emergency (ER) | payer BC, SELFPAY ==
--- NOTE | ~2023-01-29 | US_ITS ---
US venous doppler LE RT DATE: 01/30/2023 07:24 INDICATION: Right lower extremity pain and swelling TECHNIQUE: Real-time and color flow imaging and Doppler analysis of the veins of the right lower extr emity COMPARISON: None FINDINGS: There is spontaneous and phasic flow and normal augmentation, normal color flow signal and normal compression of the deep veins of the right lower extremity. IMPRESSION: No evidence of deep venous thrombosis of right lower extremity Reviewed, dictated and finalized at [facility]. Reviewed, dictated and finalized at location A.
--- NOTE | ~2023-01-29 | CT_ITS ---
EXAMINATION: CTA LE RT DATE: 01/30/2023 01:40 INDICATION: Right calf pain and swelling. TECHNIQUE: Computed tomographic angiography (CTA) of the right lower extremity was performed with 150 mL Omnipaque-350 intravenous contrast. Automated exposure control and iterative reconstruction techn ique were employed. The dose-length product was 1040.62 mGy-cm. Maximum intensity projection 3D-recon structions of the arteries were created by the technologist on a separate workstation. COMPARISON: Ultrasound 01/30/2023 FINDINGS: There is mild bilateral external iliac lymphadenopathy. For example, a right external iliac node chloe ures 2.2 x 1.5 cm. There is subcutaneous edema in the lower leg. There is no significant stenosis of right common iliac artery, profunda femoris, superficial femoral artery, popliteal artery, tibioperon eal trunk, anterior tibial artery, peroneal artery, or posterior tibial artery. IMPRESSION: 1. No significant arterial occlusive disease. 2. Mild bilateral external iliac lymphadenopathy, likely reactive. Reviewed, dictated and finalized at location E.
[2023-01-29 21:20] VITALS: BP 139/67; PULSE 82; RESP 16; TEMP 35.2; O2SAT 99
[2023-01-30] VITALS (10 sets, daily range): BP systolic 103–123; BP diastolic 49–69; PULSE 59–94; RESP 15–30; O2SAT 91–100
[2023-01-30 01:38] LABS: Estimated CRCL calculation 146 ml/min; Estimated Glomerular Filt Rate > 60
[2023-01-30 02:11] LABS: Basophils Absolute Auto 0.1 K/mm3 (0.0-0.1); Basophils Percent Auto 0.6 % (0.2-1.2); Eosinophils Absolute Auto 0.2 K/mm3 (0-0.3); Hematocrit 30.8 % (37.0-47.0); Hemoglobin 9.9 g/dL (12.0-15.0); Immature Granulocyte Absolute 0.01 K/mm3 (0.00-0.031); Immature Granulocyte Percent A 0.1 % (0-0.5); Lymphocytes Absolute Auto 2.69 K/mm3 (0.9-3.2); Lymphocytes Percent Auto 33.3 % (18.3-44.2); Mean Corpuscular HGB Conc 32.1 g/dl (32-36); Mean Corpuscular Hemoglobin 28.7 pg (26-34); Mean Corpuscular Volume 89.3 fl (80-100); Mean Platelet Volume 10.3 fl (7.4-10.4); Monocytes Absolute Auto 0.8 K/mm3 (0.1-0.6); Monocytes Percent Auto 10.4 % (2.6-8.5); Neutrophils Absolute Auto 4.3 K/mm3 (1.3-6.7); Neutrophils Percent Auto 52.6 % (45.5-73.1); Platelet Count Result 274 k/mm3 (150-375); Red Blood Count 3.45 M/mm3 (4.2-5.4); Red Cell Distribution Width 13.3 % (11.5-14.5); White Blood Count 8.1 K/mm3 (4.5-10.0)
[2023-01-30 02:23] LABS: Alanine Aminotransferase 18 U/L (6-35); Albumin Level 3.7 g/dL (3.5-5.1); Alkaline Phosphatase 69 U/L (38-126); Anion Gap 5 mmol/L (8-16); Aspartate Amino Transferase 24 U/L (14-36); Bilirubin,Total 0.5 mg/dL (0.2-1.3); Blood Urea Nitrogen 11 mg/dL (7-17); Calcium 8.8 mg/dL (8.4-10.2); Carbon Dioxide 26 mmol/L (22-30); Chloride 102 mmol/L (98-107); Estimated CRCL calculation 108 ml/min; Estimated Glomerular Filt Rate > 60; Glucose 92 mg/dL (65-110); Potassium 3.6 mmol/L (3.4-5.0); Sodium 133 mmol/L (137-145)
[2023-01-30 02:30] LABS: Partial Thromboplastin Time 27.4 SECONDS (22.3-36.8); Prothrombin Time 14.2 Seconds (11.1-14.7)
--- NOTE | 2023-01-30 02:36 | ED.GENADULT ---
HPI - General Adult General Chief complaint: Extremity Problem,Nontraumatic <Hollis Pratt MD - Last Filed: 01/30/23 06:44> Stated complaint: R. calf pain <Hollis Pratt MD - Last Filed: 01/30/23 06:44> Time Seen by Provider: 01/30/23 00:35 <Hollis Pratt MD - Last Filed: 01/30/23 06:44> History of Present Illness HPI narrative: Patient 40-year-old female presents emerged from with chief complaint of right calf pain. Patient reports that several days ago she was bending over to turkey picker something and felt a pulling sensation in her right calf. Patient states that she developed redness and swelling and bruising present after this issue the patient states that she has prior history of a dissection of her aorta and reports that she is not on any blood thinners and was seen in urgent care. The patient was sent to the emergency department for concern of possible arterial issue or DVT. <Hollis Pratt MD - Last Filed: 01/30/23 06:44> Related Data Home medications: Home Medications Medication Instructions Recorded Confirmed albuterol sulfate 90 mcg/actuation 2 puff inhalation DAILY 07/28/21 12/29/22 aerosol inhaler amlodipine 10 mg tablet 10 mg PO DAILY 07/28/21 12/29/22 atorvastatin 80 mg tablet 80 mg PO DAILY 07/28/21 12/29/22 lisinopril 40 mg tablet 40 mg PO DAILY 07/28/21 12/29/22 metformin 500 mg tablet 500 mg PO DAILY 07/28/21 12/29/22 metoprolol tartrate 100 mg tablet 100 mg PO DAILY 07/28/21 12/29/22 levothyroxine 175 mcg tablet 175 mcg DIRECTED 12/29/22 12/29/22 tizanidine 4 mg tablet mg 12/29/22 <Hollis Pratt MD - Last Filed: 01/30/23 06:44> Allergies/adverse reactions: Allergies Allergy/AdvReac Type Severity Reaction Status Date / Time Penicillins Allergy Mild Unknown Verified 01/30/23 00:19 <Hollis Pratt MD - Last Filed: 01/30/23 06:44> Review of Systems Review of Systems: A 10 system review of systems was completed on the patient and is negative except for what is stated in the HPI. Nursing and ancillary documentation was reviewed. <Hollis Pratt MD - Last Filed: 01/30/23 06:44> PMFSH Past Medical History Medical History: Medical History ADHD Aortic dissection Hyperlipidemia Hypertension Hypothyroidism <Hollis Pratt MD - Last Filed: 01/30/23 06:44> Surgical History Surgical History: Surgical History H/O nasal septoplasty S/P aortic dissection repair 06/13/21 <Hollis Pratt MD - Last Filed: 01/30/23 06:44> Family History Family History: Family History Grandparent Diabetes mellitus Hypertension Father Hypertension <Hollis Pratt MD - Last Filed: 01/30/23 06:44> Social History Social History: Social History Smoking status: Former smoker Tobacco type: e-cigarettes/vaping Alcohol intake: former Substance use: never Living arrangements: with family Gender identity (if verbalized by the patient): Female Sexual Orientation (if Verbalized by the Patient): Lesbian, Jordan, or Homosexual Spiritual care concerns: No <Hollis Pratt MD - Last Filed: 01/30/23 06:44> Exam Narrative: GENERAL: Well-appearing, well-nourished, and in no acute distress. HEAD: Normocephalic, atraumatic. EYES: PERRLA and EOMI. ENT: Nares clear, no rhinorrhea or epistaxis. Mucous membranes moist. NECK: Supple. CHEST: Clear to auscultation. No respiratory distress. HEART: Regular rate and rhythm. No murmur heard. Normal peripheral pulses. ABDOMEN: Soft, nontender, nondistended, normal active bowel sounds. EXTREMITIES: Normal range of motion. There is swelling present in t
[2023-01-30 02:51] LABS: D Dimer 1.21 ug/mL (<0.48)
== END 2023-01-30 09:21 | disposition home or self-care (01) ==
PROVIDERS: Emergency Medicine; Emergency Provider Emergency Medicine; PCP Physician Assistant
DX: S80.11XA Contusion of right lower leg, initial encounter (principal); E78.5 Hyperlipidemia, unspecified; I10 Essential (primary) hypertension; E03.9 Hypothyroidism, unspecified; Z87.891 Personal history of nicotine dependence; Z79.84 Long term (current) use of oral hypoglycemic drugs; X50.9XXA Other and unspecified overexertion or strenuous movements or postures, initial encounter
CPT/HCPCS: 73706; 80053; 85025; 85380; 85610; 85730; 93971; 99284; Q9967

== ENCOUNTER 2023-05-28 17:15 | Emergency (ER) | payer BC, SELFPAY ==
[2023-05-28 17:23] VITALS: BP 120/52; PULSE 75; RESP 20; TEMP 36.8; O2SAT 97
--- NOTE | 2023-05-28 17:26 | ED.NAVMDI ---
HPI - Nausea/Vomiting/Diarrhea General Chief complaint: Nausea/Vomiting/Diarrhea Stated complaint: Nausea and Lethargic Time Seen by Provider: 05/28/23 17:26 Source: patient and RN notes reviewed Mode of arrival: ambulatory Limitations: no limitations History of Present Illness HPI Narrative: 42-year-old female presents concern for nausea vomiting diarrhea. Reports symptoms started 2 days after she started taking clindamycin. She reports she has a bad taste in her mouth, reports that tastes like the antibiotic. She denies rhinorrhea, nasal congestion, sore throat, cough, body aches, chills, sweats, fever. She denies dry mouth or decreased urination MD elicited complaint: nausea, vomiting and diarrhea Related Data Home Medications Medication Instructions Recorded Confirmed albuterol sulfate 90 mcg/actuation 2 puff inhalation DAILY 07/28/21 12/29/22 aerosol inhaler amlodipine 10 mg tablet 10 mg PO DAILY 07/28/21 12/29/22 atorvastatin 80 mg tablet 80 mg PO DAILY 07/28/21 12/29/22 lisinopril 40 mg tablet 40 mg PO DAILY 07/28/21 12/29/22 metformin 500 mg tablet 500 mg PO DAILY 07/28/21 12/29/22 metoprolol tartrate 100 mg tablet 100 mg PO DAILY 07/28/21 12/29/22 levothyroxine 175 mcg tablet 175 mcg DIRECTED 12/29/22 12/29/22 tizanidine 4 mg tablet mg 12/29/22 clindamycin HCl 300 mg capsule mg 05/28/23 gabapentin 100 mg capsule mg 05/28/23 Allergies Allergy/AdvReac Type Severity Reaction Status Date / Time Penicillins Allergy Mild Unknown Verified 05/28/23 17:20 Review of Systems Review of Systems: CONSTITUTIONAL: Denies malaise, chills, sweats, or fever. ENT: Denies rhinorrhea, congestion, sinus pain, otalgia or sore throat. CARDIOVASCULAR: Denies chest pain, palpitations, or edema. RESPIRATORY: Denies cough or dyspnea. GASTROINTESTINAL: Denies abdominal pain. Reports nausea, vomiting, diarrhea, bloody GENITOURINARY: Denies dysuria or hematuria. MUSCULOSKELETAL: Denies myalgia. NEUROLOGIC: Denies headache. All systems reviewed & are unremarkable except as noted in HPI and below PMFSH Past Medical History Medical History ADHD Aortic dissection Hyperlipidemia Hypertension Hypothyroidism Surgical History Surgical History H/O nasal septoplasty S/P aortic dissection repair 06/13/21 Family History Family History Grandparent Diabetes mellitus Hypertension Father Hypertension Social History Social History Smoking status: Former smoker Tobacco type: e-cigarettes/vaping Alcohol intake: former Substance use: never Living arrangements: with family Gender identity (if verbalized by the patient): Female Sexual Orientation (if Verbalized by the Patient): Lesbian, Jordan, or Homosexual Spiritual care concerns: No Comments At time of signature, agree with nursing past medical, surgical, social and family history. There is no relevant family history pertinent to the presenting complaint Exam Narrative: GENERAL: Well-appearing, well-nourished, and in no acute distress. HEAD: Normocephalic, atraumatic. EYES: PERRLA, conjunctivae clear, and EOMI. ENT: Nares clear, turbinates pink, no rhinorrhea or epistaxis. Mucous membranes moist. Oropharynx without edema, erythema, or lesions. Tonsils not enlarged and without exudate. NECK: Supple. No lymphadenopathy CHEST: Speaks in full sentences. No respiratory distress. HEART: Regular rate and rhythm. ABDOMEN: Soft, obese, nondistended, nontender. No guarding, rebound tenderness, or rigidity. No pulsatile masses. Bowel sounds present in all four quadrants. No periumbilical tenderness. No Supra public tenderness or distension. SKIN: Warm, dry, no rash. NEURO: Alert and oriented x3. PSYCH: Normal mood and affe
== END 2023-05-28 17:38 | disposition home or self-care (01) ==
PROVIDERS: Emergency Provider Nurse Practitioner; PCP Physician Assistant
DX: R11.2 Nausea with vomiting, unspecified (principal); E78.5 Hyperlipidemia, unspecified; I10 Essential (primary) hypertension; E03.9 Hypothyroidism, unspecified; Z79.899 Other long term (current) drug therapy; Z87.891 Personal history of nicotine dependence
CPT/HCPCS: 99213; G0463

== ENCOUNTER 2023-06-24 15:53 | Emergency (ER) | payer OTHER, BC, SELFPAY ==
--- NOTE | ~2023-06-24 | XR_ITS ---
XR knee RT min 4V DATE: 06/24/2023 16:33 INDICATION: Fall. Right knee injury, pain TECHNIQUE: 4 views COMPARISON: None FINDINGS: No fracture or dislocation or joint effusion. Joint spaces are well preserved. No radiopaqu e intra-articular loose body or, calcinosis. No periosteal reaction or bone destruction. IMPRESSION: Negative Reviewed, dictated and finalized at location A. [facility] MICROBIOLOGY IMPRESSION: Negative
--- NOTE | ~2023-06-24 | XR_ITS ---
XR elbow LT min 3V DATE: 06/24/2023 16:32 INDICATION: Fall. Left elbow injury, pain TECHNIQUE: 4 views COMPARISON: None FINDINGS: No fracture or dislocation, periosteal reaction or bone destruction. No joint effusion. IMPRESSION: Negative Reviewed, dictated and finalized at location A. 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
[2023-06-24 16:04] VITALS: BP 139/64; PULSE 75; RESP 16; TEMP 36.7; O2SAT 100
--- NOTE | 2023-06-24 16:18 | ED.FALL ---
HPI - Fall General Chief Complaint: Fall Stated Complaint: Fall Time Seen by Provider: 06/24/23 16:06 Source: patient and RN notes reviewed Mode of arrival: ambulatory Limitations: no limitations History of Present Illness HPI Narrative: Patient presents today complaining of pain to her low back, bilateral knees, and left elbow. She fell at work around 10:30 a.m. after slipping in a puddle of water while carrying an armful of bread. Patient works at [employer]. Reports feeling a pop in her back upon falling. Denies numbness or tingling in the extremities. No loss of bowel or bladder control. She has tried no over the counter treatment prior to arrival. She currently rates her pain 10/11 Related Data Home Medications Medication Instructions Recorded Confirmed albuterol sulfate 90 mcg/actuation 2 puff inhalation DAILY 07/28/21 12/29/22 aerosol inhaler amlodipine 10 mg tablet 10 mg PO DAILY 07/28/21 06/24/23 atorvastatin 80 mg tablet 80 mg PO DAILY 07/28/21 12/29/22 lisinopril 40 mg tablet 40 mg PO DAILY 07/28/21 06/24/23 metformin 500 mg tablet 500 mg PO DAILY 07/28/21 06/24/23 metoprolol tartrate 100 mg tablet 100 mg PO DAILY 07/28/21 06/24/23 levothyroxine 175 mcg tablet 175 mcg DIRECTED 12/29/22 06/24/23 tizanidine 4 mg tablet mg 12/29/22 clindamycin HCl 300 mg capsule mg 05/28/23 gabapentin 100 mg capsule mg 05/28/23 Allergies Allergy/AdvReac Type Severity Reaction Status Date / Time Penicillins Allergy Mild Unknown Verified 06/24/23 16:34 Review of Systems Review of Systems: CONSTITUTIONAL: Denies body aches, fever, chills, or sweats. EYES: Denies visual changes, redness, or discharge. ENT: Denies rhinorrhea, congestion, sore throat, or otalgia. CARDIOVASCULAR: Denies chest pain, palpitations, or edema. RESPIRATORY: Denies cough or dyspnea. GASTROINTESTINAL: Denies abdominal pain, nausea, vomiting, or diarrhea. GENITOURINARY: Denies dysuria or hematuria. SKIN: Denies rash, itching, or wounds. MUSCULOSKELETAL: + bilateral knee pain, left elbow pain, low back pain. NEUROLOGIC: Denies headache, numbness, tingling, or weakness. PSYCH: Denies depression or anxiety. [facility] Past Medical History Medical History ADHD Aortic dissection Hyperlipidemia Hypertension Hypothyroidism Surgical History Surgical History H/O nasal septoplasty S/P aortic dissection repair 06/13/21 Family History Family History Grandparent Diabetes mellitus Hypertension Father Hypertension Social History Social History Smoking status: Former smoker Tobacco type: e-cigarettes/vaping Alcohol intake: former Substance use: never Living arrangements: with family Gender identity (if verbalized by the patient): Female Sexual Orientation (if Verbalized by the Patient): Lesbian, Jordan, or Homosexual Spiritual care concerns: No Comments At time of signature, I have reviewed and agree with nursing past medical, surgical, social and family history unless otherwise noted. Please see nursing chart for further information. There is no relevant family history pertinent to the presenting complaint Exam Narrative: GENERAL: Well-appearing, well-nourished, and in no acute distress. HEAD: Normocephalic, atraumatic. EYES: EOMI. No redness or drainage. Conjunctivae normal. ENT: Mucous membranes pink and moist. NECK: Normal AROM. CHEST: No respiratory distress. MUSCULOSKELETAL: No spinal tenderness. bilateral lower lumbar paraspinal muscle tenderness, left greater than right. Distal sensation intact. Saddle sensation intact. EXTREMITIES: Right knee: Mild patellar tenderness. No edema noted. No ecchymosis or erythema noted. Pain with flexion and extension. No pain with i
== END 2023-06-24 17:15 | disposition home or self-care (01) ==
PROVIDERS: Emergency Provider Nurse Practitioner; PCP Physician Assistant
DX: S39.012A Strain of muscle, fascia and tendon of lower back, initial encounter (principal); E78.5 Hyperlipidemia, unspecified; E03.9 Hypothyroidism, unspecified; I10 Essential (primary) hypertension; Z79.899 Other long term (current) drug therapy; Z79.84 Long term (current) use of oral hypoglycemic drugs; Z87.891 Personal history of nicotine dependence; W01.0XXA Fall on same level from slipping, tripping and stumbling without subsequent striking against object, initial encounter
CPT/HCPCS: 73080; 73564; 99214; G0463

== ENCOUNTER 2023-07-22 11:40 | Emergency (ER) | payer BC, SELFPAY ==
[2023-07-22 11:57] VITALS: BP 128/67; PULSE 74; RESP 16; TEMP 36.6; O2SAT 100
[2023-07-22 11:59] VITALS: BP 128/67; PULSE 74; RESP 16; TEMP 36.6; O2SAT 100
--- NOTE | 2023-07-22 12:01 | ED.DENTAL ---
HPI - Dental/Oral General Chief complaint: Dental/Oral Stated complaint: Dental Pain Time Seen by Provider: 07/22/23 12:02 Source: patient Mode of arrival: ambulatory Limitations: no limitations History of Present Illness HPI Narrative: 42-year-old female presents concern for left-sided dental pain. She reports she has a broken tooth on the left upper side that she has had for a long time, 3 days ago it started becoming painful and she had some facial swelling. She reports a leftover antibiotic that she started taking for 3 days without relief. She reports she was told by her dentist to come in at 2:00 a.m. and wait for possible opening. She reports she had to leave work and needs a work note. She is also unsure should be able to get in to see her dentist. MD Complaint: tooth pain Related Data Home Medications Medication Instructions Recorded Confirmed albuterol sulfate 90 mcg/actuation 2 puff inhalation DAILY 07/28/21 07/22/23 aerosol inhaler amlodipine 10 mg tablet 10 mg PO DAILY 07/28/21 07/22/23 atorvastatin 80 mg tablet 80 mg PO DAILY 07/28/21 07/22/23 lisinopril 40 mg tablet 40 mg PO DAILY 07/28/21 07/22/23 metformin 500 mg tablet 500 mg PO DAILY 07/28/21 07/22/23 metoprolol tartrate 100 mg tablet 100 mg PO DAILY 07/28/21 07/22/23 levothyroxine 175 mcg tablet 175 mcg DIRECTED 12/29/22 07/22/23 tizanidine 4 mg tablet 4 mg PO DAILY 12/29/22 07/22/23 Allergies Allergy/AdvReac Type Severity Reaction Status Date / Time Penicillins Allergy Mild Unknown Verified 07/22/23 11:56 Review of Systems Review of Systems: CONSTITUTIONAL: Denies malaise, chills, sweats, or fever. EYES: Denies visual changes ENT: Denies rhinorrhea, congestion, sinus pain, otalgia or sore throat. Reports left upper dental pain and facial swelling my tenderness CARDIOVASCULAR: Denies chest pain, palpitations RESPIRATORY: Denies cough or dyspnea. SKIN: Denies rash or itching. MUSCULOSKELETAL: Denies myalgia. NEUROLOGIC: Denies numbness, weakness, or headache. All systems reviewed & are unremarkable except as noted in HPI and below PMFSH Past Medical History Medical History ADHD Aortic dissection Hyperlipidemia Hypertension Hypothyroidism Surgical History Surgical History H/O nasal septoplasty S/P aortic dissection repair 06/13/21 Family History Family History Grandparent Diabetes mellitus Hypertension Father Hypertension Social History Social History Smoking status: Former smoker Tobacco type: e-cigarettes/vaping Alcohol intake: former Substance use: never Living arrangements: with family Gender identity (if verbalized by the patient): Female Sexual Orientation (if Verbalized by the Patient): Lesbian, Jordan, or Homosexual Spiritual care concerns: No Comments At time of signature, agree with nursing past medical, surgical, social and family history. There is no relevant family history pertinent to the presenting complaint Exam Narrative: GENERAL: Well-appearing, well-nourished, and in no acute distress. HEAD: Normocephalic, atraumatic. EYES: PERRLA, sclera clear ENT: Nares clear, turbinates pink, no rhinorrhea or epistaxis. Mucous membranes moist. TM pearly carrion with sharp light reflex bilaterally; no tragal tenderness. Oropharynx without erythema or lesions. Tonsils not enlarged and without exudate. Missing teeth, broken teeth, caries, palpable abscess above tooth number 13 and 14. NECK: Supple. No lymphadenopathy. CHEST: No respiratory distress. Speaks in full sentences. HEART: Regular rate and rhythm. SKIN: Warm, dry, no visible rash. NEURO: Alert and oriented x3. PSYCH: Normal mood and affect Course Course Emergency Course: Advised patie
== END 2023-07-22 12:24 | disposition home or self-care (01) ==
PROVIDERS: Emergency Provider Nurse Practitioner; PCP Physician Assistant
DX: K04.7 Periapical abscess without sinus (principal); Z87.891 Personal history of nicotine dependence; E78.5 Hyperlipidemia, unspecified; I10 Essential (primary) hypertension; E03.9 Hypothyroidism, unspecified
CPT/HCPCS: 99213; G0463

== ENCOUNTER 2024-01-08 10:37 | Emergency (ER) | payer SELFPAY ==
--- NOTE | ~2024-01-08 | XR_ITS ---
EXAMINATION: XR ankle LT min 3V DATE: 01/08/2024 10:59 INDICATION: Left ankle injury and pain. TECHNIQUE: 4 views of left ankle were obtained. COMPARISON: None. FINDINGS: Bone alignment is normal. No fracture. There is mild midfoot osteoarthritis. There are enth esophytes at the posterior and plantar aspects of calcaneal tuberosity. Ankle soft tissue swelling is noted. IMPRESSION: 1. No fracture. Reviewed, dictated and finalized at location E. IMPRESSION: 1. No fracture.
--- NOTE | ~2024-01-08 | XR_ITS ---
EXAMINATION: XR foot LT min 3V DATE: 01/08/2024 10:59 INDICATION: Left foot injury and pain. TECHNIQUE: 4 views of left foot were obtained. COMPARISON: None. FINDINGS: There is moderate hallux valgus. No fracture. There is mild midfoot osteoarthritis. There i s mild osteoarthritis of first metatarsophalangeal joint. IMPRESSION: 1. Moderate hallux valgus. 2. Mild polyarticular osteoarthritis. Reviewed, dictated and finalized at location E.
[2024-01-08 10:46] VITALS: BP 129/48; PULSE 63; RESP 16; TEMP 36.8; O2SAT 99
--- NOTE | 2024-01-08 10:46 | ED.LOWEXIN ---
HPI - Extremity Injury (Lower) General Chief Complaint: Extremity Injury, Lower Stated Complaint: fall, twisted left ankle Time Seen by Provider: 01/08/24 10:48 Source: patient Mode of arrival: ambulatory Limitations: no limitations History of Present Illness HPI Narrative: Joanna is a 43-year-old female patient presenting to the clinic today with complaints of twisting/injuring her left ankle and foot yesterday when she tripped over her dog. She reports this morning that she has some new bruising and she is not able to bear weight on the foot. Related Data Home Medications Medication Instructions Recorded Confirmed albuterol sulfate 90 mcg/actuation 2 puff inhalation DAILY 07/28/21 01/08/24 aerosol inhaler amlodipine 10 mg tablet 10 mg PO DAILY 07/28/21 01/08/24 atorvastatin 80 mg tablet 80 mg PO DAILY 07/28/21 01/08/24 lisinopril 40 mg tablet 40 mg PO DAILY 07/28/21 01/08/24 metformin 500 mg tablet 500 mg PO DAILY 07/28/21 01/08/24 metoprolol tartrate 100 mg tablet 100 mg PO DAILY 07/28/21 01/08/24 levothyroxine 175 mcg tablet 175 mcg DIRECTED 12/29/22 01/08/24 tizanidine 4 mg tablet 4 mg PO DAILY 12/29/22 01/08/24 Allergies Allergy/AdvReac Type Severity Reaction Status Date / Time Penicillins Allergy Mild Unknown Verified 01/08/24 10:42 Review of Systems Review of Systems: Pertinent positives per HPI. Patient denies any fever, chills, rash, headache, visual changes, dizziness, cough, runny nose, sore throat, shortness of breath, chest pain, palpitations, nausea, vomiting, diarrhea, constipation, abdominal pain, or any urinary issues. [facility] Past Medical History Medical History ADHD Aortic dissection Hyperlipidemia Hypertension Hypothyroidism Surgical History Surgical History H/O nasal septoplasty S/P aortic dissection repair 06/13/21 Family History Family History Grandparent Diabetes mellitus Hypertension Father Hypertension Social History Social History Smoking status: Former smoker Tobacco type: e-cigarettes/vaping Alcohol intake: former Substance use: never Living arrangements: with family Gender identity (if verbalized by the patient): Female Sexual Orientation (if Verbalized by the Patient): Lesbian, Jordan, or Homosexual Spiritual care concerns: No Comments At the time of my signature, I reviewed and agree with the nursing past medical, surgical, social, and family history. There is no relevant family history pertinent to the patient complaint. Exam Narrative: General: Well-developed, well nourished, in no apparent distress Head: Normocephalic, atraumatic. Cardio: Regular rate and rhythm, s1 and s2 normal, no murmur appreciated. Resp: Clear to auscultation bilaterally, no rhonchi, rales, wheezing or rubs. Musculoskeletal: No deformity, tender to palpation over the lateral malleolus as well as to the posterior heel, pain with dorsal flexion to the Achilles tendon, pain with valgus and varus maneuvers over the lateral malleolus, limited range of motion due to pain muscle strength strong and equal, peripheral pulse strong, no edema, no cyanosis, sitting in wheelchair. Course Course Emergency Course: Portions of this record may have been created with voice recognition software. Level of Care: Express Care Visit Vital Signs Vital signs: Vital Signs Temperature 36.8 C 01/08/24 10:46 Pulse Rate 63 01/08/24 10:46 Respiratory Rate 16 01/08/24 10:46 Blood Pressure 129/48 L 01/08/24 10:46 Pulse Oximetry 99 01/08/24 10:46 Oxygen Delivery Room Air 01/08/24 10:46 Temperature 36.8 C 01/08/24 10:46 Pulse Rate 63 01/08/24 10:46 Respiratory Rate 16 01/08/24 10:46 Blood Pressure 129/48 L 01/08/24 1
== END 2024-01-08 11:20 | disposition home or self-care (01) ==
PROVIDERS: Emergency Provider Nurse Practitioner Family; PCP Physician Assistant
DX: S93.402A Sprain of unspecified ligament of left ankle, initial encounter (principal); S93.602A Unspecified sprain of left foot, initial encounter; W01.0XXA Fall on same level from slipping, tripping and stumbling without subsequent striking against object, initial encounter; F17.290 Nicotine dependence, other tobacco product, uncomplicated; E78.5 Hyperlipidemia, unspecified; I10 Essential (primary) hypertension; E03.9 Hypothyroidism, unspecified
CPT/HCPCS: 73610; 73630; 99213; G0463

== ENCOUNTER 2024-03-22 09:35 | Emergency (ER) | payer SELFPAY ==
[2024-03-22 09:37] VITALS: BP 123/56; PULSE 80; RESP 20; TEMP 36.4; O2SAT 98
--- NOTE | 2024-03-22 09:56 | ED.GENADULT ---
HPI - General Adult General Chief complaint: Nausea/Vomiting/Diarrhea Stated complaint: Fever/Vomiting Time Seen by Provider: 03/22/24 09:57 Source: patient, RN notes reviewed and old records reviewed Mode of arrival: ambulatory Limitations: no limitations History of Present Illness HPI narrative: 43-year-old female presents to the [facility] with complaints of fevers, fatigue, chills and vomiting that started Tuesday 2 days ago. Related Data Home Medications Medication Instructions Recorded Confirmed albuterol sulfate 90 mcg/actuation 2 puff inhalation DAILY 07/28/21 03/22/24 aerosol inhaler amlodipine 10 mg tablet 10 mg PO DAILY 07/28/21 03/22/24 atorvastatin 80 mg tablet 80 mg PO DAILY 07/28/21 03/22/24 lisinopril 40 mg tablet 40 mg PO DAILY 07/28/21 03/22/24 metformin 500 mg tablet 500 mg PO DAILY 07/28/21 03/22/24 metoprolol tartrate 100 mg tablet 100 mg PO DAILY 07/28/21 03/22/24 levothyroxine 175 mcg tablet 175 mcg PO DAILY 12/29/22 03/22/24 tizanidine 4 mg tablet 4 mg PO DAILY 12/29/22 03/22/24 Allergies Allergy/AdvReac Type Severity Reaction Status Date / Time Penicillins Allergy Mild Unknown Verified 03/22/24 09:55 Review of Systems Review of Systems: All systems reviewed & are unremarkable except as noted in HPI and below Constitutional: Constitutional: Reports no additional constitutional complaints Eyes: Eyes: Reports no additional eye complaints ENT: Reports as per HPI Cardiovascular: Cardiovascular: Reports no additional cardiovascular complaints, Denies chest pain and Denies dyspnea Respiratory: Respiratory: Reports no additional respiratory complaints, Denies chest congestion, Denies cough and Denies dyspnea Gastrointestinal: Gastrointestinal: Reports as per HPI, Denies abdominal pain, Reports nausea and Reports vomiting Musculoskeletal: Musculoskeletal: Reports no additional musculoskeletal complaints Integumentary/Breasts: Skin/Breast: Reports system reviewed and no additional complaints, except as docu Neurologic: Reports system reviewed and no additional complaints, except as documented Psychiatric: Psychiatric: Reports no additional psychiatric complaints Allergic/Immunologic: Allergic/Immunologic: Reports no additional allergic/immunologic complaints PMFSH Past Medical History Medical History ADHD Aortic dissection Hyperlipidemia Hypertension Hypothyroidism Surgical History Surgical History H/O nasal septoplasty S/P aortic dissection repair 06/13/21 Family History Family History Grandparent Diabetes mellitus Hypertension Father Hypertension Social History Social History Smoking status: Former smoker Tobacco type: e-cigarettes/vaping Alcohol intake: former Substance use: never Living arrangements: with family Gender identity (if verbalized by the patient): Female Sexual Orientation (if Verbalized by the Patient): Lesbian, Jordan, or Homosexual Spiritual care concerns: No Comments At the time of my signature, I reviewed and agree with the nursing past medical, surgical, social, and family history. There is no relevant family history pertinent to the patient complaint. Exam Const: General: cooperative, healthy appearing, comfortable, no acute distress, well developed, alert and well nourished Nutritional Appearance: well nourished and obese Orientation/consciousness: patient oriented x3 Limitations: no limitations HENMT: Head: normal to inspection Ears: hearing grossly normal bilaterally, external ears normal, TM's normal bilaterally, EAC's normal, mastoids normal and no periauricular adenopathy Face/Nose/Sinus: Normal external nose present, Normal nares present, Normal nasal mucous membranes and turbinates present, normal facial
[2024-03-22 10:53] LABS: EDCOVIDSCREEN Positive (Negative); EDINFLUASCREEN Negative (Negative); EDINFLUBSCREEN Negative (Negative)
== END 2024-03-22 10:30 | disposition home or self-care (01) ==
PROVIDERS: Emergency Provider Nurse Practitioner; PCP Physician Assistant
DX: U07.1 COVID-19 (principal); E78.5 Hyperlipidemia, unspecified; I10 Essential (primary) hypertension; E03.9 Hypothyroidism, unspecified
CPT/HCPCS: 87426; 87804; 99212; G0463

== ENCOUNTER 2024-06-14 22:37 | Emergency (ER) | payer SELFPAY ==
--- OUTSIDE RECORDS SUMMARY | 2024-06-14 22:39 | XMS_ITS | Data Portability ---
Author Organization [place] - [facility] [employer], Main Office Address [address] [place] [address] Assessment No assessment recorded. Plan of Treatment Reminders Order Date Submit Date Provider Last Modified By Organization Details Last Modified Time Details Appointments None recorded. Lab hemoglobin + hematocrit, blood 2022 023 [email or web address] [facility] (Lab), [address] [place], [address], 3 09:47:02 magnesium, serum or plasma 2022 023 [email or web address] [facility] (Lab), [address] [place], [address], 3 09:47:02 vitamin B12, serum 2022 023 [email or web address] [facility] (Lab), [address] [place], [address], 3 09:47:02 bun (blood urea nitrogen), serum or plasma 2022 023 [email or web address] [facility] (Lab), [address] [place], [address], 3 09:47:02 creatinine, serum or plasma 2022 023 [email or web address] 25 [facility] (Lab), [address] [place], [address], 3 09:47:03 folate, RBC 2022 023 [email or web address] 25 [facility] (Lab), [address] [place], [address], 3 09:47:03 iron + total iron-bindin g capacity (TIBC), serum 2022 023 [email or web address] [facility] (Lab), [address] [place], [address], 3 09:47:03 vitamin E, serum 2022 023 [email or web address] [facility] (Lab), [address] [place], [address], 3 09:47:03 Referral None recorded. Procedures None recorded. Surgeries None recorded. Imaging None recorded. Medication Orders None recorded. Patient TargetsNo targets recorded. Patient InstructionsNo instructions recorded. Reason for Referral None Reported. Results Created Date Observation Date Name Description Value Unit Range Abnormal Flag Note LastModifiedBy Organization Detail LastModifiedTime 02/10/20 22 02/04/2022 home sleep study No observ ation record ed. [id number] [facility] [address] [place], [address], 2022 16:43:25 02/10/20 22 02/04/2022 home sleep study No observ ation record ed. [id number] [facility] [address] [place], [address], 2022 16:43:25 04/07/20 22 04/05/2022 polys omnog izaiah, titra tion study No observ ation record ed. [id number] Not Available 2022 16:43:25 04/12/20 22 04/05/2022 polys omnog izaiah, split night No observ ation record ed. [id number] [facility] [address] [place], [address], 2022 16:43:25 Result Notes None recorded. Problems Name Problem SNOMED Code Status Onset Date Resolution Date Notes Provider Name and Address Organization Details Recorded Time Nocturia 583686408 Active 023 Not Available [facility] 3 16:42:30 Periodic limb movement disorder 009534352 Active 023 Not Available [facility] 3 16:42:30 Sleep apnea 69836276 Active 022 Not Available [facility] 3 16:42:30 Fatigue 84933177 Active 023 Not Available [facility] 3 16:42:30 Notes:Medical History: Anxie ty/Depression Early REM onset Obesity with very severe OSAHS, AHI = 86, 02/04/22 Hypertension Hyperlipidemia T2DM PLMD Problem Notes None recorded. Procedures Surgical History None recorded. Imaging Results Imaging Date Name Status LastModified by [facility] Details LastModified Time 04/05/2022 polysomnogram, titration study completed [id number] Information not available 2022 16:43:25 04/05/2022 polysomnogram, split night completed [id number] [facility] [address] [place], [address], 2022 16:43:25 02/04/2022 home sleep study completed [id number] [facility] [address] [place], [address], 2022 16:43:25 02/04/2022 home sleep study completed [id number] [facility] [address] [place], [address], 2022 16:43:25 Procedure Notes None recorded. Medical Equipment None Reported. Allergies No known drug allergies Medications Name Sig Start Date Stop Date Status Note LastModified by Organization Details LastModified Time metformin 500 mg tablet TAKE 1 TABLET BY MOUTH EVERY DAY WITH MEALS active Not Available Not Available No t Available levothyroxi ne 175 mcg tablet TAKE 1 TABLET BY MOUTH EVERY DAY BEFORE MEALS active Not Available Not Available No t Available atorvastati n 80 mg tablet TAKE 1 TABLET BY MOUTH EVERY DAY AT BEDTIME 08/23 completed Not Available Not Available Not Available nicotine 14 mg/24 hr daily transdermal patch APPLY 1 PATCH TOPICALLY TO SKIN EVERY DAY 08/23 completed Not Available Not Available Not Available clindamycin HCl 300 mg capsule TAKE 1 CAPSULE BY MOUTH EVERY 8 HOURS FOR 7 DAYS 08/23 completed Not Available Not Available Not Available metoprolol tartrate 100 mg tablet TAKE 1 TABLET BY MOUTH TWICE DAILY DIRECTED active Not Available Not Available No t Available tizanidine 4 mg tablet TAKE 1 TABLET BY MOUTH EVERY 6 TO 8 HOURS NEEDED active Not Available Not Available No t Available metronidazo le 250 mg tablet 08/23 completed Not Available Not Available Not Available amlodipine 10 mg tablet TAKE 1 TABLET BY MOUTH EVERY DAY IN THE MORNING active Not Available Not Available No t Available cephalexin 500 mg capsule TAKE ONE CAPSULE BY MOUTH EVERY 6 HOURS 05/16 completed Not Available Not Available Not Available triamcinolo ne acetonide 0.1 % topical ointment APPLY THIN LAYER TOPICALLY TO THE AFFECTED AREA TWICE DAILY FOR 10 DAYS active Not Available Not Available No t Available levothyroxi ne 150 mcg tablet TAKE 1 TABLET BY MOUTH EVERY DAY BEFORE MEALS 08/23 completed Not Available Not Available Not Available buspirone 7.5 mg tablet TAKE 1 TABLET BY MOUTH TWICE DAILY DIRECTED 08/23 completed Not Available Not Available Not Available mometasone 0.1 % topical ointment APPLY THIN LAYER TOPICALLY TO THE AFFECTED AREA EVERY DAY FOR 7 DAYS active Not Available Not Available No t Available azelastine 137 mcg (0.1 %) nasal spray USE 1 SPRAY IN EACH NOSTRIL EVERY 12 HOURS 08/23 completed Not Available Not Available Not Available albuterol sulfate HFA 90 mcg/actuati on aerosol inhaler INHALE 2 PUFFS BY MOUTH EVERY 4 TO 6 HOURS NEEDED active Not Available Not Available No t Available lisinopril 40 mg tablet TAKE 1 TABLET BY MOUTH EVERY DAY IN THE MORNING active Not Available Not Available No t Available fluticasone propionate 50 mcg/actuati on nasal spray,suspe nsion SHAKE LIQUID AND USE 1 TO 2 SPRAYS IN EACH NOSTRIL TWICE DAILY 08/23 completed Not Available Not Available Not Available escitalopra m 10 mg tablet TAKE 1 TABLET BY MOUTH EVERY DAY IN THE MORNING 08/23 completed Not Available Not Available Not Available escitalopra m 5 mg tablet TAKE 1 TABLET BY MOUTH EVERY DAY IN THE MORNING 08/23 completed Not Available Not Available Not Available OneTouch Verio test strips active Not Available Not Available Not Available OneTouch Verio Flex Meter USE TO TEST BLOOD SUGAR EVERY MORNING AND 2 HOURS AFTER EACH MEAL active Not Available Not Available No t Available OneTouch Delica Plus Lancet 33 gauge USE TO CHECK BLOOD SUGAR TWICE DAILY active Not Available Not Available No t Available Vitals Date Recorded Body mass index (BMI) Body height Oxygen saturation Oxygen saturation in Arterial blood by Pulse oximetry Heart rate Body temperature Body weight Systolic blood pressure Diastolic blood pressure Provider Name and Address Organization Details Last Updated DateTime 3 44.2 kg/m2 154.94 cm 97 % 97 % 66 /min 97.6 [degF] 695751. 61 g 122 mm[Hg] 68 mm[Hg] Not Available [facility] 3 16:42:19 Date Recorded Heart rate Oxygen saturation Oxygen saturation in Arterial blood by Pulse oximetry Body temperature Body weight Systolic blood pressure Diastolic blood pressure Provider Name and Address Organization Details Last Updated DateTime 2 66 /min 95 % 95 % 97.3 [degF] 38340.7 3 g 110 mm[Hg] 60 mm[Hg] Not Available [facility] 3 16:42:19 Date Recorded Body height Body temperature Heart rate Oxygen saturation Oxygen saturation in Arterial blood by Pulse oximetry Systolic blood pressure Diastolic blood pressure Provider Name and Address Organization Details Last Updated DateTime 3 154.94 cm 98.1 [degF] 62 /min 97 % 97 % 102 mm[Hg] 60 mm[Hg] Silvia Boyer MA [facility] [employer] [facility] 3 11:35:08 Date Recorded Body height Body temperature Provider N kodi and Address Organization Details Last Updated DateTime 05/16/2023 154.94 cm 97.9 [degF] Claudia Abreu MA [facility] [employer] [facility] 05/16/2023 09:58:49 Date Recorded Body weight Heart rate Oxygen saturation Oxygen saturation in Arterial blood by Pulse oximetry Systolic blood pressure Diastolic blood pressure Provider Name and Address Organization Details Last Updated DateTime 3 48295.2 1 g 67 /min 97 % 97 % 118 mm[Hg] 68 mm[Hg] APURVA Crowe - [place] [employer] [facility] 10:03:26 Social History None recorded. Functional Status None recorded. Mental Status None recorded. Family History Nothing Reported. Medical History No medical history recorded. Gynecological HistoryNo gynecological history recorded. Obstetrics History GPAL:G 0 P 0 0 0 0 Past Encounters Encounter ID Performer Location Encounter Start Date Encounter Closed Date Diagnosis/Indication Diagnosis SNOMED-CT Code Diagnosis ICD10 Code [id number] [facility] [place] [address] [place] [address] 11/02/2021 00:00:00 11/02/2021 16:46:47 [id number] [facility] [place] [address] [place] [address] 08/23/2022 00:00:00 08/23/2022 12:35:25 [id number] [facility] [place] [address] [place] [address] 11/23/2022 11:26:00 11/23/2022 11:51:01 Periodic limb movement disorder 304636100 G47.61 Sleep apnea 44663937 G47 .30 Fatigue 01455597 R53.83 Body mass index 40+ - severely obese 982056614 Z68.44 [id number] [facility] [place] [address] [place] [address] 05/16/2023 09:57:30 05/16/2023 11:17:30 Sleep apnea 24092075 G47.30 Periodic l imb movement disorder 363641432 G47.61 Health Concerns Section Related Observation LastModified by Organization Detai ls LastModified Time None Recorded Concern Status LastModified by Organization Details LastModified Time None Recorded Advance Directives Directive None Recorded Payers Encounter Date Sequence Insurance Name Policy Number Policy Lawson Covered Member ID Lawson Member ID Guarantor Name 11/23/2022 1 [facility] (MEDICAID REPLACEMENT - HMO) [id number] Joanna Doherty [id number] Joanna Doherty 05/16/2023 1 [facility] (MEDICAID REPLACEMENT - HMO) [id number] Joanna Doherty [id number] Joanna Doherty Notes Date Note Type Note Provider Name and Address Organization Details Recorded Time 11/23/2022 text/html Ms Doherty present s today to follow up on ANGÉLICA, fatigueTells me she feels fantasticUsing PAP nightlyNocturia is resolvedWakes feeling refreshed.Energy levels have significantly improvedDenies xerostomia and aerophagiaNo morning headachesDoes not nap or fall asleep unintentionally during the dayTold me at last OV that her nasal wisp is not as comfortable and she would like the full nasal mask like what was used in her titration study.She has never gotten this Cyndy Meza [facility] [address], [place], [address], [email or web address] 11/23/2022 13:39:11 05/16/2023 text/html Ms Doherty present s today to follow up on ANGÉLICA, fatigueTells me she feels fantastic and she has had about 80 pounds weight loss since her original cardiac diagnosis.Using PAP nightly and reports no concernsNocturia is resolvedWakes feeling refreshed.Energy levels have significantly improvedDenies xerostomia and aerophagiaNo morning headachesDoes not nap or fall asleep unintentionally during the dayShe has had supply replacement but tells me her chin strap and headgear wear out faster than what they will replace. Cyndy Meza, [facility] [address], [place], [address], [email or web address] 05/16/2023 11:08:29 OBGyn Episode No OBEpisode recorded.
== END 2024-06-15 00:13 | disposition left against medical advice (07) ==
LOC: ANHED 23:23
PROVIDERS: PCP Physician Assistant
DX: Z53.21 Procedure and treatment not carried out due to patient leaving prior to being seen by health care provider (principal)
CPT/HCPCS: 99199

== ENCOUNTER 2024-06-16 22:44 | Emergency (ER) | payer SELFPAY ==
--- NOTE | ~2024-06-16 | CT_ITS ---
Clinical Indication: Left breast induration/abscess CT Scan of the Chest with Contrast: Technique: Contiguous sections were acquired throughout the chest after intravenous administration of 75 cc of Omnipaque 350. Dose reduction technique was used on this scan by utilizing automated exposu re control and iterative reconstruction technique. The dose-length product (DLP) was 315.70 mGy-cm. COMPARISON: 06/13/2021 Findings: There is no evidence of any significant mediastinal, hilar or axillary lymphadenopathy. There is no f illing defect in the pulmonary arterial tree to suggest pulmonary embolus. There is no evidence of ao rtic aneurysm. There is descending thoracic aortic dissection extending to the visualized upper abdom inal aorta. Stent graft present throughout the descending thoracic aorta. There is no evidence of pleural or pericardial effusion. The lungs are clear. No pulmonary nodules or infiltrates are noted. Images through the upper abdomen reveal partially imaged calcified gallstone. There is skin thickenin g of the left breast which appears to be centered about the nipple/periareolar region. No definite fl uid collection evident. Impression: Skin thickening about the nipple/periareolar region of the left breast. This could reflect superficia l infectious process. No definite abscess seen. Ultrasound could be considered to further evaluate fo r very small fluid collection if clinically indicated. Extensive descending thoracic aortic dissection extending to the visualized upper abdominal abdomen. Status post interval stent graft placement in the descending thoracic aorta since prior exam. Cholelithiasis. Reviewed, dictated and finalized at [facility]. 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 This co uld reflect superficial infectious process. No definite abscess seen. Ultrasoun d could be considered to further evaluate for very small fluid collection if cl inically indicated. Extensive descending thoracic aortic dissection extending to the visualized upp er abdominal abdomen. Status post interval stent graft placement in the descend ing thoracic aorta since prior exam. Cholelithiasis.
[2024-06-16 22:48] VITALS: BP 128/84; PULSE 100; RESP 18; TEMP 36.2; O2SAT 99
[2024-06-17 00:38] LABS: Basophils Absolute Auto 0.1 K/mm3 (0.0-0.1); Basophils Percent Auto 0.8 % (0.2-1.2); Eosinophils Absolute Auto 0.1 K/mm3 (0-0.3); Eosinophils Percent Auto 1.3 % (0-4.4); Hematocrit 35.3 % (37.0-47.0); Hemoglobin 11.7 g/dL (12.0-15.0); Immature Granulocyte Absolute 0.03 K/mm3 (0.00-0.031); Immature Granulocyte Percent A 0.3 % (0-0.5); Lymphocytes Absolute Auto 2.63 K/mm3 (0.9-3.2); Lymphocytes Percent Auto 26.7 % (18.3-44.2); Mean Corpuscular HGB Conc 33.1 g/dl (32-36); Mean Corpuscular Hemoglobin 29.8 pg (26-34); Mean Corpuscular Volume 90.1 fl (80-100); Mean Platelet Volume 10.5 fl (7.4-10.4); Monocytes Percent Auto 9.6 % (2.6-8.5); Neutrophils Percent Auto 61.3 % (45.5-73.1); Platelet Count Result 281 k/mm3 (150-375); Red Blood Count 3.92 M/mm3 (4.2-5.4); Red Cell Distribution Width 13.1 % (11.5-14.5); White Blood Count 9.9 K/mm3 (4.5-10.0)
[2024-06-17 00:44] LABS: Lactic Acid Reflex 0.8 mmol/L (0.7-2.0)
[2024-06-17 00:46] LABS: Alanine Aminotransferase 14 U/L (6-35); Albumin Level 4.4 g/dL (3.5-5.1); Alkaline Phosphatase 72 U/L (38-126); Anion Gap 5 mmol/L (4-12); Aspartate Amino Transferase 19 U/L (14-36); Bilirubin,Total 0.6 mg/dL (0.2-1.3); Blood Urea Nitrogen 14 mg/dL (7-17); CRP < 0.5 mg/dL (<1.0); Calcium 9.7 mg/dL (8.4-10.2); Carbon Dioxide 27 mmol/L (22-30); Chloride 106 mmol/L (98-107); Estimated CRCL calculation 89 ml/min; Estimated Glomerular Filt Rate > 60; Glucose 95 mg/dL (65-110); Sodium 138 mmol/L (137-145)
--- NOTE | 2024-06-17 00:50 | ED_ITS ---
HPI - Skin/Abscess/Foreign Bdy General Chief complaint: Skin/Abscess/Foreign Body <Marleny Lemus PA-C - Last Filed: 06/21/24 10:55> Stated complaint: Lump and pain to left breast <SHAILESH Eric Last Filed: 06/21/24 10:55> Time Seen by Provider: 06/16/24 23:36 <SHAILESH Eric Last Filed: 06/21/24 10:55> Source: patient <SHAILESH Eric Last Filed: 06/21/24 10:55> Mode of arrival: ambulatory <SHAILESH Eric Last Filed: 06/21/24 10:55> Limitations: no limitations <SHAILESH Eric Last Filed: 06/21/24 10:55> History of Present Illness HPI narrative: Patient is a 43-year-old female with concern for left breast infection. Patient is a 43-year-old female who presents the ED with report of a left breast infection. Patient reports she noticed redness, warmth, inflammation to her left breast, just medial to her nipple and involving her area approximately 2 weeks ago. She states she began having some patent and bloody drainage from her left nipple in the last week. She thought the symptoms were starting to improve, however she reports worsening symptoms over last couple of days. Reports significant tenderness. Denies. Denies otherwise feeling ill. States she had similar symptoms approximately 10 years ago and was seen at [facility]. Was told her milk duct with from her nipple at that time and required surgery. She last had a mammogram 1 year ago which was normal. <SHAILESH Eric Last Filed: 06/21/24 10:55> Related Data Home medications: Home Medications ?Medication ?Instructions ?Recorded ?Confirmed ?Last Taken ?Type albuterol sulfate 90 mcg/actuation 2 puff inhalation DAILY 07/28/21 03/22/24 Unknown History aerosol inhaler amlodipine 10 mg tablet 10 mg PO DAILY 07/28/21 03/22/24 Unknown History atorvastatin 80 mg tablet 80 mg PO DAILY 07/28/21 03/22/24 Unknown History lisinopril 40 mg tablet 40 mg PO DAILY 07/28/21 03/22/24 Unknown History metformin 500 mg tablet 500 mg PO DAILY 07/28/21 03/22/24 Unknown History metoprolol tartrate 100 mg tablet 100 mg PO DAILY 07/28/21 03/22/24 Unknown History levothyroxine 175 mcg tablet 175 mcg PO DAILY 12/29/22 03/22/24 Unknown History tizanidine 4 mg tablet 4 mg PO DAILY 12/29/22 03/22/24 Unknown History <Marleny Lemus PA-C - Last Filed: 06/21/24 10:55> Allergies/Adverse reactions: Allergies Allergy/AdvReac Type Severity Reaction Status Date / Time Penicillins Allergy Mild Unknown Verified 06/16/24 22:45 <Marleny Lemus PA-C - Last Filed: 06/21/24 10:55> Review of Systems 2 Review of Systems: All systems reviewed & are unremarkable except as noted in HPI. <Marleny Lemus PA-C - Last Filed: 06/21/24 10:55> All systems reviewed & are unremarkable except as noted in HPI and below < Marleny Lemus PA-C - Last Filed: 06/21/24 10:55> [facility] Past Medical History Medical History: Medical History Hyperlipidemia Hypertension Aortic dissection ADHD Hypothyroidism <Marleny Lemus PA-C - Last Filed: 06/21/24 10:55> Surgical History Surgical History: Surgical History S/P aortic dissection repair 06/13/21 H/O nasal septoplasty <Marleny Lemus PA-C - Last Filed: 06/21/24 10:55> Family History Family History: Family History Grandparent Diabetes mellitus Hypertension Father Hypertension <Marleny Lemus PA-C - Last Filed: 06/21/24 10:55> Social History Social History: Social History Smoking status: Former smoker Tobacco type: e-cigarettes/vaping Alcohol intake: former Substance use: never Living arrangements: with family Gender identity (if verbalized by the patient): Female Sexual Orientation (if Verbalized by the Patient): Lesbian, [place], or Homosexual Spiritual care concerns: No <Marleny Lemus PA-C - Last Filed: 06/21/24 10:55> Exam 2 Narrative: GENERAL: Well appearing, obese with BMI of 35.9, non-toxic, in no acute distress. HEAD: Normocephalic, atraumatic. BREAST: L breast with large area of induration/redness/warmth/focal TTP just medial to nipple involving areolar region (7-9 oclock region from nipple). Peau de orange changes present in this region. Slight inversion of nipple present. No active drainage from nipple or inflamed region. RESPIRATORY: Airway patent, respirations nonlabored. Clear to auscultation bilaterally, no rales, rhonchi, wheezing. CARDIOVASCULAR: Regular rate and rhythm without murmurs, rubs, or gallops. MUSCULOSKELETAL: Moves all extremities. No gross deformities. SKIN: Warm, dry, normal color. NEURO: A&O X3. Speech clear. PSYCHIATRIC: Appropriate mood and affect. Normal interaction. <Marleny Lemus PA-C - Last Filed: 06/21/24 10:55> Course EVALUATION ANALYST/PA Physician Supervision Patient signed out to me pending CT scan results. She has a history of breast cellulitis of her left breast that required previous intervention by breast surgery over 10 years prior. She also has a complex history of aortic dissection that was identified several years ago and repaired over at outside hospital in [place]. CT scan was obtained and interpreted by stat read with cellulitic skin changes but no definitive abscess in the left breast consistent with her clinical exam findings. Patient was re-evaluated had symptomatic improvement while here in the emergency department and we went over the CT scan results together. She felt comfortable with discharge home and the plan provided by previous mid-level provider. Her examination is stable, vitals are reassuring and her laboratory status once are largely unremarkable. Will send her home with antibiotics and breast surgeon follow-up instructions. She was given strict return precautions and she verbalized understanding. Skin thickening about the nipple/periareolar region of the left breast. This could reflect superficial infectious process. No definite abscess seen. Ultrasound could be considered to further evaluate for very small fluid collection if clinically indicated. Patient felt comfortable with plan of care going forward and will return with any new or worsening concerns at any time. She was safely discharged home at this time. <Juvencio Hernandez MD - Last Filed: 06/17/24 08:15> Vital Signs Vital signs: Vital Signs Temperature 97.2 F L 06/16/24 22:48 Pulse Rate 100 06/16/24 22:48 Respiratory Rate 18 06/16/24 22:48 Blood Pressure 128/84 06/16/24 22:48 Pulse Oximetry 99 06/16/24 22:48 Oxygen Delivery Room Air 06/16/24 22:48 Temperature 97.2 F L 06/16/24 22:48 Pulse Rate 69 06/17/24 03:55 Respiratory Rate 19 06/17/24 03:55 Blood Pressure 144/72 H 06/17/24 03:55 Pulse Oximetry 100 06/17/24 03:55 Oxygen Delivery Room Air 06/16/24 22:48 <Marleny Lemus PA-C - Last Filed: 06/21/24 10:55> Vital Signs Temperature 97.2 F L 06/16/24 22:48 Pulse Rate 100 06/16/24 22:48 Respiratory Rate 18 06/16/24 22:48 Blood Pressure 128/84 06/16/24 22:48 Pulse Oximetry 99 06/16/24 22:48 Oxygen Delivery Room Air 06/16/24 22:48 Temperature 97.2 F L 06/16/24 22:48 Pulse Rate 69 06/17/24 03:55 Respiratory Rate 19 06/17/24 03:55 Blood Pressure 144/72 H 06/17/24 03:55 Pulse Oximetry 100 06/17/24 03:55 Oxygen Delivery Room Air 06/16/24 22:48 <Juvencio Hernandez MD - Last Filed: 06/17/24 08:15> MDM - Skin/Abscess/Foreign Bdy MDM Narrative Medical decision making narrative: Patient presented to ED with left breast infection. History of previous issue with breast duct. Vital signs are stable upon arrival, borderline tachycardic. Afebrile. CBC with white blood cell count of 9.9. Stable H& H. CMP is unremarkable. Lactic acid within normal range. Normal inflammatory markers. CT scan of chest obtained to rule out abscess. Patient given dose of Vanc in the ED given report of purulent drainage. Care signed out to Dr. Hernandez at shift change pending STAT RAD CT results. < Marleny Lemus PA-C - Last Filed: 06/21/24 10:55> Medical Records Attestation: I reviewed the patient's medical records. <SHAILESH Eric Last Filed: 06/21/24 10:55> Lab Data Attestation: I reviewed the patient's lab results. <Marleny Lemus PA-C - Last Filed: 06/21/24 10:55> Result diagrams: 06/17/24 00:26 06/17/24 00:26 <SHAILESH Eric Last Filed: 06/21/24 10:55> Labs: Lab Results 06/17/24 Range/Units 00:26 WBC 9.9 (4.5-10.0) K/mm3 RBC 3.92 L (4.2-5.4) M/mm3 Hgb 11.7 L (12.0-15.0) g/dL Hct 35.3 L (37.0-47.0) % MCV 90.1 (80-100) fl MCH 29.8 (26-34) pg MCHC 33.1 (32-36) g/dl RDW 13.1 (11.5-14.5) % Plt Count 281 (150-375) k/mm3 MPV 10.5 H (7.4-10.4) fl Immature Gran % (Auto) 0.3 (0-0.5) % Neut % (Auto) 61.3 (45.5-73.1) % Lymph % (Auto) 26.7 (18.3-44.2) % [place] % (Auto) 9.6 H (2.6-8.5) % Eos % (Auto) 1.3 (0-4.4) % Baso % (Auto) 0.8 (0.2-1.2) % Lymph # (Auto) 2.63 (0.9-3.2) K/mm3 [place] # (Auto) 1.0 H (0.1-0.6) K/mm3 Eos # (Auto) 0.1 (0-0.3) K/mm3 Baso # (Auto) 0.1 (0.0-0.1) K/mm3 Abs Immat Gran (auto) 0.03 (0.00-0.031) K/mm3 Absolute Neuts (auto) 6.0 (1.3-6.7) K/mm3 Absolute Nucleated RBC 0.000 (0.0-0.012) K/mm3 Nucleated RBC % 0.0 (0.0-0.2) % Sodium 138 (137-145) mmol/L Potassium 4.0 (3.4-5.0) mmol/L Chloride 106 (98-107) mmol/L Carbon Dioxide 27 (22-30) mmol/L Anion Gap 5 (4-12) mmol/L BUN 14 (7-17) mg/dL Creatinine 0.70 (0.7-1.0) mg/dL Estim Creat Clear Calc 89 ml/min Estimated GFR > 60 (59 - ) Glucose 95 (65-110) mg/dL Lactic Acid 0.8 (0.7-2.0) mmol/L Calcium 9.7 (8.4-10.2) mg/dL Total Bilirubin 0.6 (0.2-1.3) mg/dL AST 19 (14-36) U/L ALT 14 (6-35) U/L Alkaline Phosphatase 72 (38-126) U/L C-Reactive Protein < 0.5 (<1.0) mg/dL Total Protein 8.0 (6.3-8.2) g/dL Albumin 4.4 (3.5-5.1) g/dL Serum HCG, Qual Negative <Marleny Lemus PA-C - Last Filed: 06/21/24 10:55> Lab Results 06/17/24 Range/Units 00:26 WBC 9.9 (4.5-10.0) K/mm3 RBC 3.92 L (4.2-5.4) M/mm3 Hgb 11.7 L (12.0-15.0) g/dL Hct 35.3 L (37.0-47.0) % MCV 90.1 (80-100) fl MCH 29.8 (26-34) pg MCHC 33.1 (32-36) g/dl RDW 13.1 (11.5-14.5) % Plt Count 281 (150-375) k/mm3 MPV 10.5 H (7.4-10.4) fl Immature Gran % (Auto) 0.3 (0-0.5) % Neut % (Auto) 61.3 (45.5-73.1) % Lymph % (Auto) 26.7 (18.3-44.2) % [place] % (Auto) 9.6 H (2.6-8.5) % Eos % (Auto) 1.3 (0-4.4) % Baso % (Auto) 0.8 (0.2-1.2) % Lymph # (Auto) 2.63 (0.9-3.2) K/mm3 [place] # (Auto) 1.0 H (0.1-0.6) K/mm3 Eos # (Auto) 0.1 (0-0.3) K/mm3 Baso # (Auto) 0.1 (0.0-0.1) K/mm3 Abs Immat Gran (auto) 0.03 (0.00-0.031) K/mm3 Absolute Neuts (auto) 6.0 (1.3-6.7) K/mm3 Absolute Nucleated RBC 0.000 (0.0-0.012) K/mm3 Nucleated RBC % 0.0 (0.0-0.2) % Sodium 138 (137-145) mmol/L Potassium 4.0 (3.4-5.0) mmol/L Chloride 106 (98-107) mmol/L Carbon Dioxide 27 (22-30) mmol/L Anion Gap 5 (4-12) mmol/L BUN 14 (7-17) mg/dL Creatinine 0.70 (0.7-1.0) mg/dL Estim Creat Clear Calc 89 ml/min Estimated GFR > 60 (59 - ) Glucose 95 (65-110) mg/dL Lactic Acid 0.8 (0.7-2.0) mmol/L Calcium 9.7 (8.4-10.2) mg/dL Total Bilirubin 0.6 (0.2-1.3) mg/dL AST 19 (14-36) U/L ALT 14 (6-35) U/L Alkaline Phosphatase 72 (38-126) U/L C-Reactive Protein < 0.5 (<1.0) mg/dL Total Protein 8.0 (6.3-8.2) g/dL Albumin 4.4 (3.5-5.1) g/dL Serum HCG, Qual Negative <Juvencio Hernandez MD - Last Filed: 06/17/24 08:15> Imaging Data Attestation: I personally reviewed and interpreted this imaging study as follows: < Marleny Lemus PA-C - Last Filed: 06/21/24 10:55> Discharge Plan Discharge Clinical Impression: Cellulitis of left breast, History of repair of dissection of abdominal aorta <Marleny Lemus PA-C - Last Filed: 06/21/24 10:55> Patient Disposition: Home, Self-Care <Marleny Lemus PA-C - Last Filed: 06/21/24 10:55> Condition: Stable <Marleny Lemus PA-C - Last Filed: 06/21/24 10:55> Instructions: Antibiotic Form, Mastitis (ED), Cellulitis (ED) <SHAILESH Eric Last Filed: 06/21/24 10:55> Additional Instructions: Take antibiotics as prescribed for infection. Follow up closely with general surgery/breast surgery for further evaluation. <SHAILESH Eric Last Filed: 06/21/24 10:55> Patient Language: Bulgarian <SHAILESH Eric Last Filed: 06/21/24 10:55> Prescriptions: New sulfamethoxazole-trimethoprim [Bactrim DS] 800-160 mg tablet 1 tablet PO Q12H 7 Days Qty: 14 0RF No Action metformin 500 mg tablet 500 mg PO DAILY atorvastatin 80 mg tablet 80 mg PO DAILY metoprolol tartrate 100 mg tablet 100 mg PO DAILY amlodipine 10 mg tablet 10 mg PO DAILY albuterol sulfate 90 mcg/actuation HFA aerosol inhaler 2 puff INHALATION DAILY lisinopril 40 mg tablet 40 mg PO DAILY levothyroxine 175 mcg tablet 175 mcg PO DAILY tizanidine 4 mg tablet 4 mg PO DAILY ondansetron 4 mg tablet,disintegrating 4 mg PO Q8H PRN (Reason: nausea and vomiting) Qty: 10 0RF Probiotic 10 billion cell capsule 10,000 mmu cells PO DAILY Qty: 20 0RF <Marleny Lemus PA-C - Last Filed: 06/21/24 10:55> Follow-up/Referrals: Diane,AARTI Scherer [Primary Care Provider] - Kyleigh Mcclendon MD [Physician] - (BREAST SURGERY) Oziel Romero MD [Physician] - (GENERAL SURGERY) <Marleny Lemus PA-C - Last Filed: 06/21/24 10:55> Time of Disposition: 05:12 <Marleny Lemus PA-C - Last Filed: 06/21/24 10:55> 05:12 <Juvencio Hernandez MD - Last Filed: 06/17/24 08:15>
[2024-06-17 00:51] LABS: SPREG INTERNAL CONTROL Positive; Serum Qual hCG Negative
[2024-06-17 01:06] VITALS: BP 154/84; PULSE 82; RESP 18; O2SAT 100
[2024-06-17] MEDS: VANCOMYCIN 1,250 MG/NS 250 ML 1,250 MG/250 ML BAG 166.67 MG IVPB (01:59)
[2024-06-17 03:55] VITALS: BP 144/72; PULSE 69; RESP 19; O2SAT 100
--- OUTSIDE RECORDS SUMMARY | 2024-06-21 10:40 | XMS_ITS | Encounter Summary ---
Author Organization [facility] Address [address] [place] [address]. [place] [address] [place] [address] Care Team Providers Care Liquor Tester Name Role Phone Marla Rodríguez PA-C Primary Care Provider [phone] Reason for Visit * Reason Comments Breast Pain Encounter Details Date Type Department Care Team (Latest Contact Info) Description 10/05/2023 4:05 PM CDT - 10/05/2023 4:38 PM CDT Hospital Encounter [facility] [address] [facility] [place] [address] Rosalia Ambrocio, DO [address] [place] [address] [id number] Breast Pain Discharge Disposition: Home or Self Care (Routine Discharge) Social History Tobacco Use Types Packs/Day Years Used Date Smoking Tobacco: Former Cigarettes Smokeless Tobacco: Never Alcohol Use Standard Drinks/Week Comments Never 0 (1 standard drink = 0.6 oz pur e alcohol) Comments No Sex and Gender Information Value Date Recorded Sex Assigned at Not on file Legal Sex Female 5:29 PM CDT Gender Identity Not on file Sexual Orientation Not on file documented as of this encounter Last Filed Vital Signs Vital Sign Reading Time Taken Comments Blood Pressure 152/88 10/05/2023 4:10 PM CDT Pulse 66 10/05/2023 4:10 PM CDT Temperature 36.1 ??C (96.9 ??F) 10/05/2023 4:10 PM CD T Respiratory Rate 18 10/05/2023 4:10 PM CDT Oxygen Saturation 100% 10/05/2023 4:10 PM CDT Inhaled Oxygen Concentration - - Weight 90.7 kg (200 lb) 10/05/2023 4:10 PM CDT Height 154.9 cm (5' 1 ) 10/05/2023 4:10 PM CDT Body Mass Index 37.79 10/05/2023 4:10 PM CDT documented in this encounter Discharge Instructions * Discharge Instructions* Rosalia Ambrocio DO - 10/05/2023 4:37 PM CDT Take antibiotics as prescribed Recommend probiotics or yogurt while on antibiotics Take Tylenol during the day as needed for pain and [place] as needed at night (it may cause grogginess so do not combine with alcohol or drive after taking) Recommend ice or cool compresses 3-4 times daily Follow up with PCP Call Dr. Joanna Martínez's office tomorrow ([phone]) to see if you can schedule an appt or need a referral from your PCP Return for new or worsening symptoms * Attachments The following attachments cannot be sent through Care Everywhere. * Mastalgia Discharge Instructions (Rwandan) documented in this encounter Medications at Time of Discharge HYDROcodone-aceta minophen (NORCO) 5-325 MG tabletIndications :Acute Pain < 3 Day Supply Take 1 tablet by mouth every 6 (six) hours as needed for Pain. Indications: Acute Pain < 3 Day Supply 10 tablet 10/05/2023 levothyroxine (SYNTHROID) 175 MCG tablet Take 1 tablet (175 mcg total) by mouth every morning. lisinopril (PRINIVIL) 40 MG tablet Take 1 tablet (40 mg total) by mouth every morning. metFORMIN (GLUCOPHAGE) 500 MG tablet Take 1 tablet (500 mg total) by mouth daily with breakfast. metoprolol tartrate (LOPRESSOR) 100 MG tablet Take 1 tablet (100 mg total) by mouth 2 (two) times daily. sulfamethoxazole- trimethoprim (BACTRIM DS) 800-160 MG tablet Take 1 tablet by mouth 2 (two) times daily for 7 days. 14 tablet 10/05/2023 10/12/2023 documented as of this encounter ED Notes * Rhonda Mayes RN - 10/05/2023 4:38 PM CDT Provider discussed today's findings with the patient. The patient has been given information regarding their treatment, follow up and concerning symptoms for which they should seek urgent or emergentattention. I have expressed the importance of seeking attention should there be any new, or worsening symptoms or persistence of their condition. Patient verbalized understanding of the discharge instructions. * Rhonda Mayes RN - 10/05/2023 4:20 PM CDT Patient presents to for complaint of left sided breat pain that began approximately 3 days ago. Reports pain is directly behind nipple. Denies any known injury to area. Reports she has a milk ductdetachment over 10 years ago, and that this feels similar. * Rosalia Ambrocio DO - 10/05/2023 4:07 PM CDT Images from the original note were not included. [facility]- [place], [place] HISTORICAL INFORMATION Primary Care Doctor: MARLA RODRÍGUEZ PA-C Patient information was obtained primarily from the patient, nursing notes. History/Exam limitations: None Provider at Bedside None CHIEF COMPLAINT Breast Pain Chief Complaint Patient presents with Breast Pain HPI Joanna Doherty is a 43-year-old female who presents with a three day hx of severe L breast pain behind the nipple. She denies known trauma, inciting event, or fevers. She states she has intermittentlyhad clear discharge from the R nipple for years (has had negative workup for this through her PCP) but has not had any L sided discharge. 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 States today's sxs feel similarly ROS as per HPI PAST MEDICAL HISTORY Past Medical History: Diagnosis Date Aortic arch dissection ([facility]) COPD (chronic obstructive pulmonary disease) ([facility]) reports pre-COPD Diabetes mellitus ([facility]) reports pre-diabetic Disease of thyroid gland Hypertension SURGICAL HISTORY Past Surgical History: Procedure Laterality Date REPAIR OF NASAL SEPTUM CURRENT MEDICATIONS No current facility-administered medications for this encounter. Current Outpatient Medications: HYDROcodone-acetaminophen (NORCO) 5-325 MG tablet, Take 1 tablet by mouth every 6 (six) hours as needed for Pain. Indications: Acute Pain < 3 Day Supply, Disp: 10 tablet, Rfl: 0 sulfamethoxazole-trimethoprim (BACTRIM DS) 800-160 MG tablet, Take 1 tablet by mouth 2 (two) times daily for 7 days., Disp: 14 tablet, Rfl: 0 levothyroxine (SYNTHROID) 175 MCG tablet, Take 1 tablet (175 mcg total) by mouth every morning., Disp: , Rfl: lisinopril (PRINIVIL) 40 MG tablet, Take 1 tablet (40 mg total) by mouth every morning., Disp: , Rfl: metFORMIN (GLUCOPHAGE) 500 MG tablet, Take 1 tablet (500 mg total) by mouth daily with breakfast., Disp: , Rfl: metoprolol tartrate (LOPRESSOR) 100 MG tablet, Take 1 tablet (100 mg total) by mouth 2 (two) times daily., Disp: , Rfl: ALLERGIES Review of patient's allergies indicates: Allergen Reactions Penicillins Hives FAMILY HISTORY No family history on file. Family History of Heart Disease, Diabetes, Cancer Negative. SOCIAL HISTORY Social History Socioeconomic History Marital status: Single Tobacco Use Smoking status: Former Types: Cigarettes Smokeless tobacco: Never Substance and Sexual Activity Alcohol use: Never Drug use: Never Review of Systems Constitutional: Negative for chills and fever. Musculoskeletal: Negative for falls. Psychiatric/Behavioral: Negative for suicidal ideas. Physical Exam VITAL SIGNS: Filed Vitals: 10/05/23 1610 BP: (!) 152/88 Pulse: 66 Resp: 18 Temp: 96.9 ??F (36.1 ??C) SpO2: 100% Weight: 90.7 kg (200 lb) Height: 1.549 m (5' 1 ) Physical Exam Vitals and nursing note reviewed. Exam conducted with a dishtank operator present (Rhonda Mayes). Constitutional: General: She is not in acute distress. Appearance: Normal appearance. She is normal weight. She is not ill-appearing, toxic-appearing or diaphoretic. HENT: Head: Normocephalic and atraumatic. Eyes: General: No scleral icterus. Right eye: No discharge. Left eye: No discharge. Extraocular Movements: Extraocular movements intact. Conjunctiva/sclera: Conjunctivae normal. Pulmonary: Effort: Pulmonary effort is normal. No respiratory distress. Breath sounds: No stridor. Chest: Breasts: Right: Normal. Left: Tenderness present. No bleeding, inverted nipple, mass, nipple discharge or skin change. Musculoskeletal: General: No deformity. Normal range of motion. Cervical back: Normal range of motion and neck supple. No rigidity. Skin: General: Skin is warm and dry. Neurological: General: No focal deficit present. Mental Status: She is alert. Mental status is at baseline. Gait: Gait normal. Psychiatric: Mood and Affect: Mood normal. Behavior: Behavior normal. Thought Content: Thought content normal. Judgment: Judgment normal. EKG (interpreted by ED provider) No results found for this visit on 10/05/23. LABORATORY Labs Reviewed - No data to display RADIOLOGY No orders to display PROCEDURES Procedures MDM Pt with Hx of HTN, hypothyroidism, prior dissected aortic aneurysm, prediabetes (on Metformin), andpre-COPD presenting today with L sided mastalgia. No evidence of sepsis or abscess but will Rx for Bactrim to cover possible developing mastitis. As she is unable to take NSAIDs, will Rx for short course of [place] (advised of potential for addiction or respiratory depression - pdmp run and appropriate) and advised cool compresses. Recommended f/u with PCP as she is due for routine mammogram. I unfortunately am unable to view old records but was able to locate her prior breast specialist at [facility], Dr. Joanna Martínez, and advised she reach out to their office tomorrow to schedule an appt given that she has seen them in the past for similar issue, to which she is agreeable I have discussed today's findings with the patient and provided information regarding the likely diagnosis. The patient has been given information regarding their treatment, follow up and concerning symptoms for which they should seek urgent or emergent attention. I have expressed the the importance of seeking attention should there be any new, or worsening symptoms or persistence of their condition. The patient is stable at discharge and has verbalized understanding of these instructions. Impression/Disposition SNOMED CT(R) 1. Breast pain, left PAIN OF LEFT BREAST Disposition: Discharge Medications - No data to display Discharge Medication List as of 10/05/2023 4:37 PM START taking these medications Details HYDROcodone-acetaminophen (NORCO) 5-325 MG tablet Take 1 tablet by mouth every 6 (six) hours as needed for Pain. Indications: Acute Pain < 3 Day Supply, Starting Tue10/05/2023, Eprescribe Class: Eprescribe Pharmacy: [facility] #[id number] [facility] [address] (Ph #: [phone]) sulfamethoxazole-trimethoprim (BACTRIM DS) 800-160 MG tablet Take 1 tablet by mouth 2 (two) times daily for 7 days., Starting Tue10/05/2023, Until Tue10/12/2023, Eprescribe Class: [facility]prescribe [id number] [place] [id number] [place] [facility] [address] (Ph #: [phone]) DO Rosalia PABLO DO 10/05/23 1646 documented in this encounter Plan of Treatment Not on file documented as of this encounter Visit Diagnoses Diagnosis Breast pain, left- Primary Mastodynia documented in this encounter Care Teams Liquor Tester Relationship Specialty Start Date End Date Marla Rodríguez PA-C [address] [place] [phone] PCP - General PHYSICIAN ACCOUNT ASSOCIATE 10/05/23 documented as of this encounter
--- OUTSIDE RECORDS SUMMARY | 2024-06-21 10:40 | XMS_ITS | Encounter Summary ---
Author Organization [facility] Address [facility]. [place], [place] [address] [place] [address] Care Team Providers Care Policy Intern Name Role Phone Kourtney Mackay MD Primary Care Provider Unavailable Encounter Details Date Type Department Care Team (Late st Contact Info) Description 04/22/2017 [place] [facility] [address] [facility] [address] Shannan Eric, ADELA Social History Tobacco Use Types Packs/Day Years Used Date Smoking Tobacco: Never Assessed Comments Unknown Sex and Gender Information Value Date Recorded Sex Assigned at Not on file Legal Sex Female 5:29 PM CDT Gender Identity Not on file Sexual Orientation Not on file documented as of this encounter Plan of Treatment Not on file documented as of this encounter Visit Diagnoses Diagnosis Acute upper respiratory infection Acute upper respiratory infections of unspecified site documented in this encounter Care Teams Policy Intern Relationship Specialty Start Date End Date Kourtney Mackay MD PCP - General 09/07/13 documented as of this encounter
--- OUTSIDE RECORDS SUMMARY | 2024-06-21 10:40 | XMS_ITS | Encounter Summary ---
Author Organization [facility] Address [facility] [address] [place] [address] Care Team Providers Care Residential Mortgage Manager Name Role Phone Kourtney Mackay MD Primary Care Provider Unavailable Encounter Details Date Type Department Care Team (Late st Contact Info) Description 09/07/2013 Abstract Howeelías Martinez [address] [facility] [place], [place] [id number] Vanessa Burk, CORPORATE SAFETY MANAGER [address] [facility] [address] [place], [place] [id number] Social History Tobacco Use Types Packs/Day Years Used Date Smoking Tobacco: Never Assessed Comments Unknown Sex and Gender Information Value Date Recorded Sex Assigned at Not on file Legal Sex Female 5:29 PM CDT Gender Identity Not on file Sexual Orientation Not on file documented as of this encounter Plan of Treatment Not on file documented as of this encounter Visit Diagnoses Diagnosis Inflammatory disease of breast documented in this encounter Care Teams Residential Mortgage Manager Relationship Specialty Start Date End Date Kourtney Mackay MD PCP - General 09/07/13 documented as of this encounter
--- OUTSIDE RECORDS SUMMARY | 2024-06-21 10:40 | XMS_ITS | Encounter Summary ---
Author Organization [facility] Address [address] [place] [address]. [place] [address] [place] [address] Care Team Providers Care Activities Leader Name Role Phone Kourtney Mackay MD Primary Care Provider Unavailable Encounter Details Date Type Department Care Team (Late st Contact Info) Description 05/07/2017 [place] [address] Kourtney Mackay MD Social History Tobacco Use Types Packs/Day Years Used Date Smoking Tobacco: Never Assessed Comments Unknown Sex and Gender Information Value Date Recorded Sex Assigned at Not on file Legal Sex Female 5:29 PM CDT Gender Identity Not on file Sexual Orientation Not on file documented as of this encounter Plan of Treatment Not on file documented as of this encounter Visit Diagnoses Not on filedocumented in this encounter Care Teams Activities Leader Relationship Specialty Start Date End Date Kourtney Mackay MD PCP - General 09/07/13 documented as of this encounter
--- OUTSIDE RECORDS SUMMARY | 2024-06-21 10:40 | XMS_ITS | Encounter Summary ---
Author Organization [facility] Address [facility]6 [facility] [place] [address] [place] [address] Care Team Providers Care Information Systems Analyst Name Role Phone Niesha Contreras PA-C Primary Care Provider +1- [phone] Encounter Details Date Type Department Care Team (Latest Contact Info) Description 10/05/2023 Travel Social History Tobacco Use Types Packs/Day Years [...] on filedocumented in this encounter Care Teams Information Systems Analyst Relationship Specialty Start Date End Date Niesha Contreras PA-C [address] [place] [phone] PCP - General PHYSICIAN LOG CHIPPER 10/05/23 documented as of this encounter
--- OUTSIDE RECORDS SUMMARY | 2024-06-21 10:40 | XMS_ITS | Clinical Summary ---
Author Organization [facility] Address [facility]6 [place] [address] [place] [address] Care Team Providers Care Pre Sales Systems Engineer Name Role Phone Niesha Contreras PA-C Primary Care Provider +1- [phone] Allergies Active Allergy Reactions Criticality Noted Date Comments Penicillins Hives 10/05/2023 Medications metoprolol tartrate (LOPRESSOR) 100 MG tablet Take 1 tablet (100 mg total) by mouth 2 (two) times daily. Active metFORMIN (GLUCOPHAGE) 500 MG tablet Take 1 tablet (500 mg total) by mouth daily with breakfast. Active lisinopril (PRINIVIL) 40 MG tablet Take 1 tablet (40 mg total) by mouth every morning. Active levothyroxine (SYNTHROID) 175 MCG tablet Take 1 tablet (175 mcg total) by mouth every morning. Active HYDROcodone-acet aminophen (NORCO) 5-325 MG tabletIndication s:Acute Pain < 3 Day Supply Take 1 tablet by mouth every 6 (six) hours as needed for Pain. Indications : Acute Pain < 3 Day Supply 10 tablet 10/05/2023 Active Social History Tobacco Use Types Packs/Day Years Used Date Smoking Tobacco: Former Cigarettes Smokeless Tobacco: Never Alcohol Use Standard Drinks/Week Comments Never 0 (1 standard drink = 0.6 oz pur e alcohol) Comments No Sex and Gender Information Value Date Recorded Sex Assigned at Not on file Legal Sex Female 5:29 PM CDT Gender Identity Not on file Sexual Orientation Not on file Last Filed Vital Signs Vital Sign Reading [...] Mass Index 37.79 10/05/2023 4:10 PM CDT Plan of Treatment Health Maintenance Due Date Last Done Comments Cervical Cancer Screening Pa p Smear (Age 30 to 64) Every 3 Years 1980 Annual Physical 09/02/1983 Hepatitis C 1998 DTaP, Tdap and Td Vaccines ( 1 - Tdap) 09/02/1999 Hepatitis B Vaccines (1 of 3 - 19+ 3-dose series) 09/02/1999 Cervical Cancer Screening Pa p with HPV Testing (Age 30 to 64) Every 5 Years 2010 Cervical Cancer Screening wi HPV 2010 Mammogram Screening 2020 COVID-19 Vaccine ( - 2023-2 5 season) 2024 01/09/2021, 12/12/2020 Influenza Adult (#1) 2024 HPV Vaccines Aged Out No longer eligi ble based on patient's age to complete this topic Meningococcal Vaccine Aged Out No lashae paula eligible based on patient's age to complete this topic Pneumococcal Vaccine: Pediatrics (0 to 5 Years) and At-Risk Patients (6 to 64 Years) Aged Out No longer eligible b ased on patient's age to complete this topic RSV Immunizations Under 20 Months Aged Out No longer eligible b ased on patient's age to complete this topic Insurance C/O [employer] [id number] Care Teams Pre Sales Systems Engineer Relationship Specialty Start Date End Date Niesha Contreras PA-C [address] [place] [phone] PCP - General PHYSICIAN THERMAL SPRAY OPERATOR 10/05/23
--- OUTSIDE RECORDS SUMMARY | 2024-06-21 10:40 | XMS_ITS | Data Portability ---
Author Organization [facility], Main Office Address [address] [place] [address] Assessment No assessment recorded. Plan of Treatment Reminders Order Date Submit Date Provider Last Modified By Organization Details Last Modified Time Details Appointments None recorded. Lab hemoglobin + hematocrit, blood 2022 023 [email or web address] [facility] (Lab), [address] [place], [address], 3 09:47:02 magnesium, serum or plasma 2022 023 [email or web address] 25 [facility] (Lab), [address] [place], [address], 3 09:47:02 vitamin B12, serum 2022 023 [email or web address] 25 [facility] (Lab), [address] [place], [address], 3 09:47:02 bun (blood urea nitrogen), serum or plasma 2022 023 [email or web address] 25 [facility] (Lab), [address] [place], [address], 3 09:47:02 creatinine, serum or plasma 2022 023 [email or web address] 25 [facility] (Lab), [address] [place], [address], 3 09:47:03 folate, RBC 2022 023 [email or web address] 25 [facility] (Lab), [address] [place], [address], 3 09:47:03 iron + total iron-bindin g capacity (TIBC), serum 2022 023 [email or web address] 25 [facility] (Lab), [address] [place], [address], 3 09:47:03 vitamin E, serum 2022 023 [email or web address] 25 [facility] (Lab), [address] [place], [address], 3 09:47:03 Referral None recorded. Procedures None recorded. Surgeries None recorded. Imaging None recorded. Medication Orders None recorded. Patient TargetsNo targets recorded. Patient InstructionsNo instructions recorded. Reason for Referral None Reported. Results Created Date Observation Date Name Description Value Unit Range Abnormal Flag Note LastModifiedBy Organization Detail LastModifiedTime 02/10/20 22 02/04/2022 home sleep study No observ ation record ed. [id number] [facility] [address] [place], [address], 2022 16:43:25 02/10/20 22 02/04/2022 home sleep study No observ ation record ed. [id number] [facility] Add On Lab Orders [address] [place], [address], 2022 16:43:25 04/07/20 22 04/05/2022 polys omnog izaiah, titra tion study No observ ation record ed. [id number] Not Available 2022 16:43:25 04/12/20 22 04/05/2022 polys omnog izaiah, split night No observ ation record ed. [id number] [facility] [address] [place], [address], 2022 16:43:25 Result Notes None recorded. Problems Name Problem SNOMED Code Status Onset Date Resolution Date Notes Provider Name and Address Organization Details Recorded Time Nocturia 659273610 Active 023 Not Available [facility] 3 16:42:30 Periodic limb movement disorder 006684557 Active 023 Not Available [facility] 3 16:42:30 Sleep apnea 11747505 Active 022 Not Available [facility] 3 16:42:30 Fatigue 57181562 Active 023 Not Available [facility] 3 16:42:30 Notes:Medical History: Anxie ty/Depression Early REM onset Obesity with very severe OSAHS, AHI = 86, 02/04/22 Hypertension Hyperlipidemia T2DM PLMD Problem Notes None recorded. Procedures Surgical History None recorded. Imaging Results Imaging Date Name Status LastModified by [facility]iz [facility] Details LastModified Time 04/05/2022 polysomnogram, titration study completed [id number] Information not available 2022 16:43:25 04/05/2022 polysomnogram, split night completed [id number] [facility] [address] [place], [address], 2022 16:43:25 02/04/2022 home sleep study completed [id number] [facility] [address] [place], [address], 2022 16:43:25 02/04/2022 home sleep study completed [id number] [facility] Add On Lab Orders [address] [place], [address], 2022 16:43:25 Procedure Notes None recorded. Medical [...] % 97 % 66 /min 97.6 [degF] 217681. 61 g 122 mm[Hg] 68 mm[Hg] Not Available [facility] 3 16:42:19 Date Recorded Heart rate Oxygen saturation Oxygen saturation in Arterial blood by Pulse oximetry Body temperature Body weight Systolic blood pressure Diastolic blood pressure Provider Name and Address Organization Details Last Updated DateTime 2 66 /min 95 % 95 % 97.3 [degF] 07085.7 3 g 110 mm[Hg] 60 mm[Hg] Not Available [facility] 3 16:42:19 Date Recorded Body height Body temperature Heart rate Oxygen saturation Oxygen saturation in Arterial blood by Pulse oximetry Systolic blood pressure Diastolic blood pressure Provider Name and Address Organization Details Last Updated DateTime 3 154.94 cm 98.1 [degF] 62 /min 97 % 97 % 102 mm[Hg] 60 mm[Hg] Silvia Boyer MA [facility] 3 11:35:08 Date Recorded Body height Body temperature Provider N kodi and Address Organization Details Last Updated DateTime 05/16/2023 154.94 cm 97.9 [degF] Claudia Abreu MA [facility] 05/16/2023 09:58:49 Date Recorded Body weight Heart rate Oxygen saturation Oxygen saturation in Arterial blood by Pulse oximetry Systolic blood pressure Diastolic blood pressure Provider Name and Address Organization Details Last Updated DateTime 3 93697.2 1 g 67 /min 97 % 97 % 118 mm[Hg] 68 mm[Hg] APURVA Crowe - Marianne [facility] 10:03:26 Social History None recorded. Functional Status None recorded. Mental Status None recorded. Family History Nothing Reported. Medical History No medical history recorded. Gynecological HistoryNo gynecological history recorded. Obstetrics History GPAL:G 0 P 0 0 0 0 Past Encounters Encounter ID Performer Location Encounter Start Date Encounter Closed Date Diagnosis/Indication Diagnosis SNOMED-CT Code Diagnosis ICD10 Code [id number] [facility] [address] [place] [address] 11/02/2021 00:00:00 11/02/2021 16:46:47 [id number] [facility] [address] [place] [address] 08/23/2022 00:00:00 08/23/2022 12:35:25 [id number] [facility] [address] [place] [address] 11/23/2022 11:26:00 11/23/2022 11:51:01 Periodic limb movement disorder 223248427 G47.61 Sleep apnea 41884151 G47 .30 Fatigue 80891172 R53.83 Body mass index 40+ - severely obese 725303392 Z68.44 [id number] KELLY [facility] [address] [place] [address] 05/16/2023 09:57:30 05/16/2023 11:17:30 Sleep apnea 47010477 G47.30 Periodic l imb movement disorder 083112925 G47.61 Health Concerns Section Related Observation LastModified by Organization Detai ls LastModified Time None Recorded Concern Status LastModified by Organization Details LastModified Time None Recorded Advance Directives Directive None Recorded Payers Encounter Date Sequence Insurance Name Policy Number Policy Lawson Covered Member ID Lawson Member ID Guarantor Name 11/23/2022 1 [facility] (MEDICAID REPLACEMENT - HMO) [id number] Joanna Doherty [id number] Joanna Doherty 05/16/2023 1 [facility] (MEDICAID REPLACEMENT - HMO) [id number] Joanna Doherty [id number] Joanna Doherty Notes Date Note Type [...] study.She has never gotten this Cyndy Meza [facility] [address], [place], [address], [place] 11/23/2022 13:39:11 05/16/2023 text/html Ms Doherty present [...] than what they will replace. Cyndy Meza, [facility] [address], [place], [address], [employer] 05/16/2023 11:08:29 OBGyn Episode No OBEpisode recorded.
--- OUTSIDE RECORDS SUMMARY | 2024-06-21 12:00 | XMS_ITS | Encounter Summary ---
Author Organization [facility] Address [address] [place] [address]. [place] [address] [place] [address] Care Team Providers Care Wood Stainer Name Role Phone Kourtney Mackay MD Primary Care Provider Unavailable Encounter Details Date Type Department Care Team (Late st Contact Info) Description 05/07/2017 Scan [place] [address] Kourtney Mackay MD Social History Tobacco Use [...] on filedocumented in this encounter Care Teams Wood Stainer Relationship Specialty Start Date End Date Kourtney Mackay MD PCP - General 09/07/13 documented as of this encounter
--- OUTSIDE RECORDS SUMMARY | 2024-06-21 12:00 | XMS_ITS | Encounter Summary ---
Author Organization [facility] Address [address] [place] [address]. [place] [address] [place] [address] Care Team Providers Care Vending Route Servicer Name Role Phone Marla Rodríguez PA-C Primary Care Provider +1- [phone] Reason for Visit * Reason Comments Breast Pain Encounter Details Date Type Department Care Team (Latest Contact Info) Description 10/05/2023 4:05 PM CDT - 10/05/2023 4:38 PM CDT Hospital Encounter [facility] Care [address] [facility] [place] [address] Rosalia Ambrocio, DO [address] [place] [phone] Breast Pain Discharge Disposition: Home or Self [...] the day as needed for pain and Larkspur as needed at night (it may cause grogginess so do not combine with alcohol or drive after taking) Recommend ice or cool compresses 3-4 times daily Follow up with PCP Call Dr. Joanna Martínez's office tomorrow ([phone]) to see if you can schedule an appt or need a referral from your PCP Return for new or worsening symptoms * Attachments The following attachments cannot be sent through Care Everywhere. * Mastalgia Discharge Instructions (Belarusian) documented in this encounter Medications at Time [...] from the original note were not included. 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 States today's sxs feel similarly ROS as per HPI PAST MEDICAL HISTORY Past Medical History: Diagnosis Date Aortic arch dissection ([facility]) COPD (chronic obstructive pulmonary disease) ([facility]) reports pre-COPD Diabetes mellitus ([facility]) reports pre-diabetic Disease of thyroid gland [...] nursing note reviewed. Exam conducted with a contracts law professor present (Rhonda Mayes). Constitutional: General: She is [...] NSAIDs, will Rx for short course of [place] (advised of potential for addiction or respiratory depression - pdmp run and appropriate) and advised cool compresses. Recommended f/u with PCP as she is due for routine mammogram. I unfortunately am unable to view old records but was able to locate her prior breast specialist at [facility], Dr. Joanna Martínez, and advised she reach [...] Supply, Starting Tue10/05/2023, Eprescribe Class: Eprescribe Pharmacy: [id number] [facility] [address] (Ph #: [phone]) sulfamethoxazole-trimethoprim (BACTRIM DS) 800-160 MG tablet Take 1 tablet by mouth 2 (two) times daily for 7 days., Starting Tue10/05/2023, Until Tue10/12/2023, Eprescribe Class: [facility]cribe [id number] [place] [id number] [facility] [address] (Ph #: [phone]) DO Rosalia PABLO DO 10/05/23 1646 documented in this encounter Plan of Treatment Not on file documented as of this encounter Visit Diagnoses Diagnosis Breast pain, left- Primary Mastodynia documented in this encounter Care Teams Vending Route Servicer Relationship Specialty Start Date End Date Marla Rodríguez PA-C [address] [place] [phone] PCP - General PHYSICIAN DIGITAL ACCOUNT COORDINATOR 10/05/23 documented as of this encounter
--- OUTSIDE RECORDS SUMMARY | 2024-06-21 12:00 | XMS_ITS | Encounter Summary ---
Author Organization [facility] Address [facility]6 [facility]. [place], [place] [address] [place] [address] Care Team Providers Care Locomotive Operator Helper Name Role Phone Kourtney Mackay MD Primary Care Provider Unavailable Encounter Details Date Type Department Care Team (Late st Contact Info) Description 04/22/2017 [facility] [address] [place] [address] Shannan Eric, ADELA Social History Tobacco Use [...] site documented in this encounter Care Teams Locomotive Operator Helper Relationship Specialty Start Date End Date Kourtney Mackay MD PCP - General 09/07/13 documented as of this encounter
--- OUTSIDE RECORDS SUMMARY | 2024-06-21 12:00 | XMS_ITS | Clinical Summary ---
Author Organization [facility] Address [facility]6 [facility] [place] [address] [place] [address] Care Team Providers Care Machinery Mover Name Role Phone Niesha Contreras PA-C Primary Care Provider +1- [phone] Allergies Active Allergy Reactions Criticality Noted Date [...] topic Insurance C/O [employer] [id number] Care Teams Machinery Mover Relationship Specialty Start Date End Date Niesha Contreras PA-C [address] [place] [phone] PCP - General PHYSICIAN BIT BENDER 10/05/23
--- OUTSIDE RECORDS SUMMARY | 2024-06-21 12:00 | XMS_ITS | Encounter Summary ---
Author Organization [facility] Address [facility]6 [facility] [place] [place] [address] [place] [address] Care Team Providers Care Spaghetti Machine Operator Name Role Phone Niesha Contreras PA-C Primary Care Provider +1- [phone] Encounter Details Date Type Department Care Team [...] on filedocumented in this encounter Care Teams Spaghetti Machine Operator Relationship Specialty Start Date End Date Niesha Contreras PA-C [address] [place] [phone] PCP - General PHYSICIAN BUCKET CHUCKER 10/05/23 documented as of this encounter
== END 2024-06-17 05:31 | disposition home or self-care (01) ==
PROVIDERS: Emergency Provider Physician Assistant; PCP Physician Assistant
DX: N61.0 Mastitis without abscess (principal); I10 Essential (primary) hypertension; E78.5 Hyperlipidemia, unspecified; E03.9 Hypothyroidism, unspecified; F90.9 Attention-deficit hyperactivity disorder, unspecified type; Z87.891 Personal history of nicotine dependence
CPT/HCPCS: 36415; 71260; 80053; 83605; 84703; 85025; 86140; 96365; 99284; J3370; Q9967

== ENCOUNTER 2024-07-01 13:45 | Emergency (ER) | payer SELFPAY ==
[2024-07-01 13:59] VITALS: BP 107/59; PULSE 63; RESP 16; TEMP 35.8; O2SAT 98
--- NOTE | 2024-07-01 15:01 | ED_ITS ---
HPI - Skin/Abscess/Foreign Bdy General Chief complaint: Skin/Abscess/Foreign Body Stated complaint: Breast Wound Time Seen by Provider: 07/01/24 15:01 Source: patient, RN notes reviewed and old records reviewed Mode of arrival: ambulatory Limitations: no limitations History of Present Illness HPI narrative: Patient presents with complaints of pain and drainage to left breast. She reports that symptoms have been present for quite some time. She was at 1 time treated with antibiotics, was successfully treated, but then symptoms came back. She was advised to follow up with a breast surgeon, but due to insurance constraints has been unable to do so. Patient is very upset at her inability to be able to follow-up. She reports that she is quite worried and understands that her symptoms are serious. She denies any fever, chills, sweats. She denies any injury or trauma. She reports that she has purulent discharge from the nipple and skin changes to the nipple and surrounding area Related Data Home Medications ?Medication ?Instructions ?Recorded ?Confirmed ?Last Taken ?Type amlodipine 10 mg tablet 10 mg PO DAILY 07/28/21 07/01/24 Unknown History atorvastatin 80 mg tablet 80 mg PO DAILY 07/28/21 07/01/24 Unknown History lisinopril 40 mg tablet 40 mg PO DAILY 07/28/21 07/01/24 Unknown History metformin 500 mg tablet 500 mg PO DAILY 07/28/21 07/01/24 Unknown History metoprolol tartrate 100 mg tablet 100 mg PO DAILY 07/28/21 07/01/24 Unknown History levothyroxine 175 mcg tablet 175 mcg PO DAILY 12/29/22 07/01/24 Unknown History tizanidine 4 mg tablet 4 mg PO DAILY 12/29/22 07/01/24 Unknown History Allergies Allergy/AdvReac Type Severity Reaction Status Date / Time Penicillins Allergy Mild Unknown Verified 07/01/24 13:55 Review of Systems 2 Review of Systems: All systems reviewed & are unremarkable except as noted in HPI and below Constitutional: Constitutional: Reports no additional constitutional complaints ENT: Reports system reviewed and no additional complaints, except as documented Cardiovascular: Cardiovascular: Reports no additional cardiovascular complaints Respiratory: Respiratory: Reports no additional respiratory complaints Gastrointestinal: Gastrointestinal: Reports no additional gastrointestinal complaints Integumentary/Breasts: Skin/Breast: Reports system reviewed and no additional complaints, except as docu and Reports as per HPI [facility] Past Medical History Medical History Hyperlipidemia Hypertension Aortic dissection ADHD Hypothyroidism Surgical History Surgical History S/P aortic dissection repair 06/13/21 H/O nasal septoplasty Family History Family History Grandparent Diabetes mellitus Hypertension Father Hypertension Social History Social History Smoking status: Former smoker Tobacco type: e-cigarettes/vaping Alcohol intake: former Substance use: never Living arrangements: with family Gender identity (if verbalized by the patient): Female Sexual Orientation (if Verbalized by the Patient): Lesbian, Jordan, or Homosexual Spiritual care concerns: No Comments At the time of my signature, I reviewed and agree with the nursing past medical, surgical, social, and family history. There is no relevant family history pertinent to the patient complaint. Exam 2 Const: General: cooperative, no acute distress, alert and awake O rientation/consciousness: oriented to person, oriented to place and oriented to time HENMT: Head: normal to inspection Resp: Effort & Inspection: normal respiratory effort and able to speak in complete sentences Auscultation: clear to auscultation bilaterally, no crackles, no rales, no rhonchi and no wheezes Cardio: Palpation: normal PMI Rate: regular rate Rhythm: regular rhythm Heart sounds: S1 normal heart sound present and S2 normal heart sound present Skin: Full body images: 1. Redness, tenderness. No defined abscess, some areas of induration noted. No excessive warmth. Extensive skin changes Neuro: General: oriented to person, oriented to place and oriented to time Cranial nerves: Yes CN's II-XII intact bilaterally Psych: Appearance: grossly normal Thought process: Normal thought process present Insight: Good insight present (Psych) Judgement: Good judgement present (Psych) Course Course Level of Care: Express Care Visit Vital Signs Vital signs: Vital Signs Temperature 96.4 F L 07/01/24 13:59 Pulse Rate 63 07/01/24 13:59 Respiratory Rate 16 07/01/24 13:59 Blood Pressure 107/59 L 07/01/24 13:59 Pulse Oximetry 98 07/01/24 13:59 Oxygen Delivery Room Air 07/01/24 13:59 Temperature 96.4 F L 07/01/24 13:59 Pulse Rate 63 07/01/24 13:59 Respiratory Rate 16 07/01/24 13:59 Blood Pressure 107/59 L 07/01/24 13:59 Pulse Oximetry 98 07/01/24 13:59 Oxygen Delivery Room Air 07/01/24 13:59 Reviewed MDM - Skin/Abscess/Foreign Bdy MDM Narrative Medical decision making narrative: Patient with left-sided breast changes, will go ahead and treat with p.o. antibiotics. Strict emergency department precautions discussed Discharge instructions reviewed with patient, as well as provided in writing per nursing staff. The instructions also include specific and strict return/GO TO THE ER as well as f/u information. All questions have been answered, and the patient deny any further questions with discharge and discharge plan. Some parts of this dictation were generated by voice recognition software and may contain typographical and/or grammatical inaccuracies. Differential Diagnosis Differential diagnosis: Likely other (Abscess, breast cancer, cellulitis) Medical Records Attestation: I reviewed the patient's medical records. Discharge Plan Discharge Clinical Impression: Cellulitis Qualifiers: Site of cellulitis: other site Qualified Code(s): L03.818 - Cellulitis of other sites Patient Disposition: Home, Self-Care Condition: Stable Instructions: Antibiotic Form, Cellulitis (ED) Additional Instructions: Take all medications as prescribed. Follow up with primary care provider. Follow up with breast surgeon. Emergency department for new or worsening symptoms or if current symptoms do not improve Patient Language: Bahamian Prescriptions: New doxycycline hyclate 100 mg capsule 100 mg PO BID Qty: 20 0RF No Action metformin 500 mg tablet 500 mg PO DAILY atorvastatin 80 mg tablet 80 mg PO DAILY metoprolol tartrate 100 mg tablet 100 mg PO DAILY amlodipine 10 mg tablet 10 mg PO DAILY lisinopril 40 mg tablet 40 mg PO DAILY levothyroxine 175 mcg tablet 175 mcg PO DAILY tizanidine 4 mg tablet 4 mg PO DAILY ondansetron 4 mg tablet,disintegrating 4 mg PO Q8H PRN (Reason: nausea and vomiting) Qty: 10 0RF Probiotic 10 billion cell capsule 10,000 mmu cells PO DAILY Qty: 20 0RF Follow-up/Referrals: Diane,AARTI Scherer [Primary Care Provider] - 3 Days Time of Disposition: 15:16
== END 2024-07-01 15:18 | disposition home or self-care (01) ==
PROVIDERS: Emergency Provider Nurse Practitioner Family; PCP Physician Assistant
DX: L03.818 Cellulitis of other sites (principal); I10 Essential (primary) hypertension; E78.5 Hyperlipidemia, unspecified; E03.9 Hypothyroidism, unspecified; Z87.891 Personal history of nicotine dependence; Z79.899 Other long term (current) drug therapy
CPT/HCPCS: 99213; G0463

== ENCOUNTER 2024-07-03 13:20 | Observation (INO) | payer BC, SELFPAY ==
--- NOTE | ~2024-07-03 | XR_ITS ---
EXAMINATION: XR chest 1V DATE: 07/05/2024 15:06 INDICATION: Cough. TECHNIQUE: A single frontal view of the chest was obtained. COMPARISON: Chest CT 06/17/2024 FINDINGS: There is no pneumonia, pleural effusion, or pneumothorax. The heart size is normal. There i s a prominent right pericardial fat pad. There is a stent graft in the aortic arch and descending tho racic aorta. IMPRESSION: 1. No acute cardiopulmonary disease. Reviewed, dictated and finalized at location A. SMAKING TEACHER
--- NOTE | ~2024-07-03 | US_ITS ---
EXAMINATION: US guide abscess drainage DATE: 07/05/2024 15:21 INDICATION: Left breast abscess. TECHNIQUE: The procedure including the risks, benefits, and alternatives was discussed with the patie nt. Risks discussed included bleeding and infection. The patient understood the risks and agreed to p roceed. The skin overlying the left breast was prepped and draped in usual sterile fashion. Anesthet ic was administered with 1% lidocaine subcutaneously. An 18 gauge needle and then a 16 gauge needle was used to aspirate fluid from the left breast under continuous sonographic guidance. The entry site was cleaned and dressed. There were no immediate complications. FINDINGS: Ultrasound images demonstrate the needles in a hypoechoic mass in the subareolar left breas t. IMPRESSION: 1. Ultrasound-guided needle aspiration of a hypoechoic mass in the subareolar left breast yielding 1 mL bloody fluid, which was discarded. Note that inflammatory cancer is not excluded by imaging. Reviewed, dictated and finalized at location A. ILISATION TECHNICIAN IMPRESSION: 1. Ultrasound-guided needle aspiration of a hypoechoic mass in the subareolar l eft breast yielding 1 mL bloody fluid, which was discarded. Note that inflammat ory cancer is not excluded by imaging.
--- NOTE | ~2024-07-03 | US_ITS ---
EXAMINATION TYPE: US breast LT limited COMPARISON: NONE REASON FOR STUDY: concern for breast abscess TECHNIQUE: Targeted sonographic evaluation of the left breast was performed. INTERPRETATION: At the left breast 6:00 subareolar region, there is a 3.9 cm ovoid parallel complex fluid collection. There is internal debris and peripheral vascularity. This is compatible with abscess. IMPRESSION: 3.9 cm abscess at the 6:00 left breast subareolar region. Incision and drainage should be strongly co nsidered. BI-RADS CATEGORY: BI-RADS 2: Benign Reviewed, dictated and finalized at location . CTOR OF VIDEO ANALYTICS IMPRESSION: 3.9 cm abscess at the 6:00 left breast subareolar region. Incision and drainage should be strongly considered. BI-RADS CATEGORY: BI-RADS 2: Benign
[2024-07-03 13:27] VITALS: BP 147/69; PULSE 87; RESP 20; O2SAT 100
--- NOTE | 2024-07-03 13:33 | ED_ITS ---
HPI - Skin/Abscess/Foreign Bdy General Chief complaint: Skin/Abscess/Foreign Body <SHAILESH Kellogg Last Filed: 07/03/24 13:35> Stated complaint: cellulitis <Rebekah Bejarano PA-C - Last Filed: 07/03/24 13:35> Time Seen by Provider: 07/03/24 17:55 <SHAILESH Kellogg Last Filed: 07/03/24 13:35> Focused HPI: 43-year-old female presents to the emergency department for left breast cellulitis for over 1 week. Patient states she was evaluated in our ED 1 week ago and was prescribed doxycycline for left breast cellulitis. She states she took the antibiotic as directed without improvement. She went to a local urgent care yesterday and received another day of antibiotics and was advised to come to the ED if symptoms have not improved. She states today she woke up in the redness and swelling has spread. She reports drainage from her nipple several days ago and inverted nipple. She denies personal history of breast cancer but does state that she has strong family history of breast cancer. Denies fever, nausea or vomiting. GENERAL: Well-appearing, well-nourished, and in no acute distress. HEAD: Normocephalic, atraumatic. CHEST: Clear to auscultation. ?No respiratory distress. Left breast erythematous and tender surrounding the area lip and extending distally with surrounding induration, most notably to the inferior aspect of the breast. No nipple retraction or inversion, no active drainage from the nipple HEART: Regular rate and rhythm.? NEURO: ?Alert and oriented x3. Patient screened in triage and initial orders placed.? ?Additional care and disposition to be based upon?diagnostic testing and treatment. <SHAILESH Kellogg Last Filed: 07/03/24 13:35> Source: patient <SHAILESH Palmer Last Filed: 07/04/24 00:57> Mode of arrival: ambulatory <SHAILESH Palmer Last Filed: 07/04/24 00:57> Limitations: no limitations <SHAILESH Palmer Last Filed: 07/04/24 00:57> History of Present Illness HPI narrative: Agree triage note above <Fredi Morales PA-C - Last Filed: 07/04/24 00:57> Related Data Home medications: Home Medications ?Medication ?Instructions ?Recorded ?Confirmed ?Last Taken ?Type amlodipine 10 mg tablet 10 mg PO DAILY 07/28/21 07/04/24 07/03/24 History atorvastatin 80 mg tablet 80 mg PO DAILY 07/28/21 07/04/24 07/03/24 History lisinopril 40 mg tablet 40 mg PO DAILY 07/28/21 07/04/24 07/03/24 History metformin 500 mg tablet 500 mg PO DAILY 07/28/21 07/04/24 07/03/24 History metoprolol tartrate 100 mg tablet 100 mg PO Q12H 07/28/21 07/04/24 07/03/24 08:31 History levothyroxine 175 mcg tablet 175 mcg PO DAILY 12/29/22 07/04/24 07/03/24 History tizanidine 4 mg tablet 4 mg PO Q6H PRN restless leg(s) 12/29/22 07/04/24 Unknown History acetaminophen 325 mg capsule 650 mg PO Q4H PRN pain 07/04/24 07/04/24 Unknown History (Tylenol) <Rebekah Bejarano PA-C - Last Filed: 07/03/24 13:35> Allergies/Adverse reactions: Allergies Allergy/AdvReac Type Severity Reaction Status Date / Time Penicillins Allergy Mild Unknown Verified 07/04/24 04:38 <Rebekah Bejarano PA-C - Last Filed: 07/03/24 13:35> Review of Systems 2 Review of Systems: All systems as dictated in HPI <Fredi Morales PA-C - Last Filed: 07/04/24 00:57> [facility] Past Medical History Medical History: Medical History Prediabetes Chronic obstructive pulmonary disease Obstructive sleep apnea Hyperlipidemia Hypertension Aortic dissection ADHD Hypothyroidism <Rebekah Bejarano PA-C - Last Filed: 07/03/24 13:35> Surgical History Surgical History: Surgical History History of nasal septoplasty 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 Code status: Full code. Smoking status: Never smoker Tobacco type: e-cigarettes/vaping Alcohol intake: former Substance use: never Substance use type: does not use Do You Feel Safe in your Home?: Yes Lack of Transportation: No Lack of Food: Never True Current Housing: I Have Housing Concerned About Future Housing: No Difficulty Paying Gas/Electric Bills: No Difficulty Paying for Meds: No Currently Unemployed: No Education: High School Diploma/GED Difficulty w/ Childcare or Family Care: No Additional living arrangements comments: Lives with spouse in [place]. 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 Gender identity (if verbalized by the patient): Female Sexual Orientation (if Verbalized by the Patient): Lesbian, Jordan, or Homosexual Spiritual care concerns: No <Rebekah Bejarano PA-C - Last Filed: 07/03/24 13:35> Exam 2 Narrative: GENERAL: Well-appearing, well-nourished, and in no acute distress. HEAD: Normocephalic, atraumatic. EYES: PERRLA and EOMI. ENT: Nares clear, no rhinorrhea or epistaxis. Mucous membranes moist. Oropharynx without tonsillar hypertrophy exudate or other lesions. NECK: Supple. No adenopathy or masses. CHEST: No respiratory distress. Clear to auscultation. No wheezes rales or rhonchi HEART: Regular rate and rhythm. No murmur heard. Normal peripheral pulses. ABDOMEN: Soft, nontender, nondistended, normal active bowel sounds. MSK: Normal range of motion. No edema. SKIN: Warm, dry, no rash. NEURO: Alert and oriented x4. No focal deficits. PSYCH: Normal mood and affect. Breast exam: Tenderness and warmth to the central breast at the areola. There is a erythematous blanching rash that is spreading from this area of tenderness throughout the left breast. <Fredi Morales PA-C - Last Filed: 07/04/24 00:57> Course MEDICAL LABORATORY ASSISTANT/PA Physician Supervision This visit was performed by both a physician and an APC. I performed all aspects of the MDM as documented. <Rico Israel MD - Last Filed: 07/04/24 21:09> Consultations Consultation #1: Spoke with Dr. Link (general surgery) who is recommending that we attempt to drain the abscess bedside here in the ED. he will consult on the patient. < Fredi Morales PA-C - Last Filed: 07/04/24 00:57> Vital Signs Vital signs: Vital Signs Pulse Rate 87 07/03/24 13:27 Respiratory Rate 20 07/03/24 13:27 Blood Pressure 147/69 H 07/03/24 13:27 Pulse Oximetry 100 07/03/24 13:27 Oxygen Delivery Room Air 07/03/24 13:27 Temperature 97.4 F L 07/04/24 14:00 Pulse Rate 65 07/04/24 20:14 Respiratory Rate 18 07/04/24 14:00 Blood Pressure 119/58 L 07/04/24 14:00 Pulse Oximetry 100 07/04/24 14:00 Oxygen Delivery Room Air 07/04/24 08:15 <Rebekah Bejarano PA-C - Last Filed: 07/03/24 13:35> Vital Signs Pulse Rate 87 07/03/24 13:27 Respiratory Rate 20 07/03/24 13:27 Blood Pressure 147/69 H 07/03/24 13:27 Pulse Oximetry 100 07/03/24 13:27 Oxygen Delivery Room Air 07/03/24 13:27 Temperature 97.4 F L 07/04/24 14:00 Pulse Rate 65 07/04/24 20:14 Respiratory Rate 18 07/04/24 14:00 Blood Pressure 119/58 L 07/04/24 14:00 Pulse Oximetry 100 07/04/24 14:00 Oxygen Delivery Room Air 07/04/24 08:15 <Fredi Morales PA-C - Last Filed: 07/04/24 00:57> Vital Signs Pulse Rate 87 07/03/24 13:27 Respiratory Rate 20 07/03/24 13:27 Blood Pressure 147/69 H 07/03/24 13:27 Pulse Oximetry 100 07/03/24 13:27 Oxygen Delivery Room Air 07/03/24 13:27 Temperature 97.4 F L 07/04/24 14:00 Pulse Rate 65 07/04/24 20:14 Respiratory Rate 18 07/04/24 14:00 Blood Pressure 119/58 L 07/04/24 14:00 Pulse Oximetry 100 07/04/24 14:00 Oxygen Delivery Room Air 07/04/24 08:15 <Rico Israel MD - Last Filed: 07/04/24 21:09> Procedures Abscess I/D chest: Date of Incision: 07/03/24 <Fredi Morales PA-C - Last Filed: 07/04/24 00:57> Time of Incision: 20:01 <Fredi Morales PA-C - Last Filed: 07/04/24 00:57> Side (if applicable): left (breast) <Fredi Morales PA-C - Last Filed: 07/04/24 00:57> Local Anesthetic: lidocaine 1% and with epi <Fredi Morales PA-C - Last Filed: 07/04/24 00:57> Amount of anesthesia used (mL): 3 <Fredi Moarles PA-C - Last Filed: 07/04/24 00:57> Technique: needle aspiration <Fredi Morales PA-C - Last Filed: 07/04/24 00:57> Amount of fluid expressed (mL): 1 <Fredi Morales PA-C - Last Filed: 07/04/24 00:57> Irrigation: Yes <SHAILESH Palmer Last Filed: 07/04/24 00:57> Packing used?: none <SHAILESH Palmer Last Filed: 07/04/24 00:57> I&D Results: Pus and Blood <Fredi Morales PA-C - Last Filed: 07/04/24 00:57> Complications: pain <SHAILESH Palmer Last Filed: 07/04/24 00:57> Abcess I&D Additional Comments: Breast abscess drainage done with needle aspiration done on the left side for subareolar abscess. It was visualized using bedside ultrasound. Only able to aspirate about 1 mL. No incision was made. No immediate complications other than pain. Tolerated the procedure well otherwise. <SHAILESH Palmer Last Filed: 07/04/24 00:57> MDM - Skin/Abscess/Foreign Bdy MDM Narrative Medical decision making narrative: This is a 43-year-old female who presents to the ED for chief complaint of left breast infection. Vitals are normal. Exam is remarkable for the above. Breast ultrasound shows 3.9 cm abscess to the 6:00 a.m. subareolar position. Lab work shows mildly elevated white count of 10.1. ESR 76. CMP unremarkable. Discussed the case with surgeon who recommends bedside drainage here. He will consult on the patient. I attempted needle aspiration with minimal purulence aspirated. Started on vancomycin here as patient has failed outpatient antibiotics. Discussed with hospitalist who agrees to admit the patient to medical floor. Patient is understanding and agreeable with the plan for admission. <SHAILESH Palmer Last Filed: 07/04/24 00:57> Lab Data Result diagrams: 07/04/24 06:06 07/04/24 06:06 <Rebekah Bejarano PA-C - Last Filed: 07/03/24 13:35> Labs: Lab Results 07/03/24 Range/Units 13:39 WBC 10.1 H (4.5-10.0) K/mm3 RBC 3.84 L (4.2-5.4) M/mm3 Hgb 11.5 L (12.0-15.0) g/dL Hct 35.0 L (37.0-47.0) % MCV 91.1 (80-100) fl MCH 29.9 (26-34) pg MCHC 32.9 (32-36) g/dl RDW 12.7 (11.5-14.5) % Plt Count 285 (150-375) k/mm3 MPV 10.6 H (7.4-10.4) fl Immature Gran % (Auto) 0.3 (0-0.5) % Neut % (Auto) 63.8 (45.5-73.1) % Lymph % (Auto) 23.6 (18.3-44.2) % [place] % (Auto) 9.0 H (2.6-8.5) % Eos % (Auto) 2.5 (0-4.4) % Baso % (Auto) 0.8 (0.2-1.2) % Lymph # (Auto) 2.37 (0.9-3.2) K/mm3 [place] # (Auto) 0.9 H (0.1-0.6) K/mm3 Eos # (Auto) 0.3 (0-0.3) K/mm3 Baso # (Auto) 0.1 (0.0-0.1) K/mm3 Abs Immat Gran (auto) 0.03 (0.00-0.031) K/mm3 Absolute Neuts (auto) 6.4 (1.3-6.7) K/mm3 Absolute Nucleated RBC 0.000 (0.0-0.012) K/mm3 Nucleated RBC % 0.0 (0.0-0.2) % ESR 76 H (0-20) mm/hr Sodium 141 (137-145) mmol/L Potassium 4.2 (3.4-5.0) mmol/L Chloride 109 H (98-107) mmol/L Carbon Dioxide 26 (22-30) mmol/L Anion Gap 6 (4-12) mmol/L BUN 15 (7-17) mg/dL Creatinine 0.70 (0.7-1.0) mg/dL Estim Creat Clear Calc 94 ml/min Estimated GFR > 60 (59 - ) Glucose 94 (65-110) mg/dL Calcium 9.6 (8.4-10.2) mg/dL Total Bilirubin 0.3 (0.2-1.3) mg/dL AST 21 (14-36) U/L ALT 18 (6-35) U/L Alkaline Phosphatase 76 (38-126) U/L C-Reactive Protein 1.0 (<1.0) mg/dL Total Protein 8.0 (6.3-8.2) g/dL Albumin 4.3 (3.5-5.1) g/dL <Rebekah Bejarano PA-C - Last Filed: 07/03/24 13:35> Lab Results 07/03/24 Range/Units 13:39 WBC 10.1 H (4.5-10.0) K/mm3 RBC 3.84 L (4.2-5.4) M/mm3 Hgb 11.5 L (12.0-15.0) g/dL Hct 35.0 L (37.0-47.0) % MCV 91.1 (80-100) fl MCH 29.9 (26-34) pg MCHC 32.9 (32-36) g/dl RDW 12.7 (11.5-14.5) % Plt Count 285 (150-375) k/mm3 MPV 10.6 H (7.4-10.4) fl Immature Gran % (Auto) 0.3 (0-0.5) % Neut % (Auto) 63.8 (45.5-73.1) % Lymph % (Auto) 23.6 (18.3-44.2) % [place] % (Auto) 9.0 H (2.6-8.5) % Eos % (Auto) 2.5 (0-4.4) % Baso % (Auto) 0.8 (0.2-1.2) % Lymph # (Auto) 2.37 (0.9-3.2) K/mm3 [place] # (Auto) 0.9 H (0.1-0.6) K/mm3 Eos # (Auto) 0.3 (0-0.3) K/mm3 Baso # (Auto) 0.1 (0.0-0.1) K/mm3 Abs Immat Gran (auto) 0.03 (0.00-0.031) K/mm3 Absolute Neuts (auto) 6.4 (1.3-6.7) K/mm3 Absolute Nucleated RBC 0.000 (0.0-0.012) K/mm3 Nucleated RBC % 0.0 (0.0-0.2) % ESR 76 H (0-20) mm/hr Sodium 141 (137-145) mmol/L Potassium 4.2 (3.4-5.0) mmol/L Chloride 109 H (98-107) mmol/L Carbon Dioxide 26 (22-30) mmol/L Anion Gap 6 (4-12) mmol/L BUN 15 (7-17) mg/dL Creatinine 0.70 (0.7-1.0) mg/dL Estim Creat Clear Calc 94 ml/min Estimated GFR > 60 (59 - ) Glucose 94 (65-110) mg/dL Calcium 9.6 (8.4-10.2) mg/dL Total Bilirubin 0.3 (0.2-1.3) mg/dL AST 21 (14-36) U/L ALT 18 (6-35) U/L Alkaline Phosphatase 76 (38-126) U/L C-Reactive Protein 1.0 (<1.0) mg/dL Total Protein 8.0 (6.3-8.2) g/dL Albumin 4.3 (3.5-5.1) g/dL <Fredi Morales PA-C - Last Filed: 07/04/24 00:57> Lab Results 07/03/24 Range/Units 13:39 WBC 10.1 H (4.5-10.0) K/mm3 RBC 3.84 L (4.2-5.4) M/mm3 Hgb 11.5 L (12.0-15.0) g/dL Hct 35.0 L (37.0-47.0) % MCV 91.1 (80-100) fl MCH 29.9 (26-34) pg MCHC 32.9 (32-36) g/dl RDW 12.7 (11.5-14.5) % Plt Count 285 (150-375) k/mm3 MPV 10.6 H (7.4-10.4) fl Immature Gran % (Auto) 0.3 (0-0.5) % Neut % (Auto) 63.8 (45.5-73.1) % Lymph % (Auto) 23.6 (18.3-44.2) % [place] % (Auto) 9.0 H (2.6-8.5) % Eos % (Auto) 2.5 (0-4.4) % Baso % (Auto) 0.8 (0.2-1.2) % Lymph # (Auto) 2.37 (0.9-3.2) K/mm3 [place] # (Auto) 0.9 H (0.1-0.6) K/mm3 Eos # (Auto) 0.3 (0-0.3) K/mm3 Baso # (Auto) 0.1 (0.0-0.1) K/mm3 Abs Immat Gran (auto) 0.03 (0.00-0.031) K/mm3 Absolute Neuts (auto) 6.4 (1.3-6.7) K/mm3 Absolute Nucleated RBC 0.000 (0.0-0.012) K/mm3 Nucleated RBC % 0.0 (0.0-0.2) % ESR 76 H (0-20) mm/hr Sodium 141 (137-145) mmol/L Potassium 4.2 (3.4-5.0) mmol/L Chloride 109 H (98-107) mmol/L Carbon Dioxide 26 (22-30) mmol/L Anion Gap 6 (4-12) mmol/L BUN 15 (7-17) mg/dL Creatinine 0.70 (0.7-1.0) mg/dL Estim Creat Clear Calc 94 ml/min Estimated GFR > 60 (59 - ) Glucose 94 (65-110) mg/dL Calcium 9.6 (8.4-10.2) mg/dL Total Bilirubin 0.3 (0.2-1.3) mg/dL AST 21 (14-36) U/L ALT 18 (6-35) U/L Alkaline Phosphatase 76 (38-126) U/L C-Reactive Protein 1.0 (<1.0) mg/dL Total Protein 8.0 (6.3-8.2) g/dL Albumin 4.3 (3.5-5.1) g/dL <Rico Israel MD - Last Filed: 07/04/24 21:09> Discharge Plan Discharge Clinical Impression: Abscess of skin or subcutaneous tissue Qualifiers: Site of cutaneous abscess: trunk Site of cutaneous abscess of trunk: chest wall Qualified Code(s): L02.213 - Cutaneous abscess of chest wall Cellulitis Qualifiers: Site of cellulitis: unspecified site Qualified Code(s): L03.90 - Cellulitis, unspecified <Rebekah Bejarano PA-C - Last Filed: 07/03/24 13:35> Patient Disposition: Still a Patient <Rebekah Bejarano PA-C - Last Filed: 07/03/24 13:35> Condition: Stable <Rebekah Bejarano PA-C - Last Filed: 07/03/24 13:35>
[2024-07-03 14:27] LABS: Erythrocyte Sedimentation Rate 76 mm/hr (0-20)
[2024-07-03 14:30] LABS: Basophils Absolute Auto 0.1 K/mm3 (0.0-0.1); Basophils Percent Auto 0.8 % (0.2-1.2); Eosinophils Absolute Auto 0.3 K/mm3 (0-0.3); Eosinophils Percent Auto 2.5 % (0-4.4); Hemoglobin 11.5 g/dL (12.0-15.0); Immature Granulocyte Absolute 0.03 K/mm3 (0.00-0.031); Immature Granulocyte Percent A 0.3 % (0-0.5); Lymphocytes Absolute Auto 2.37 K/mm3 (0.9-3.2); Lymphocytes Percent Auto 23.6 % (18.3-44.2); Mean Corpuscular HGB Conc 32.9 g/dl (32-36); Mean Corpuscular Hemoglobin 29.9 pg (26-34); Mean Corpuscular Volume 91.1 fl (80-100); Mean Platelet Volume 10.6 fl (7.4-10.4); Monocytes Absolute Auto 0.9 K/mm3 (0.1-0.6); Neutrophils Absolute Auto 6.4 K/mm3 (1.3-6.7); Neutrophils Percent Auto 63.8 % (45.5-73.1); Platelet Count Result 285 k/mm3 (150-375); Red Blood Count 3.84 M/mm3 (4.2-5.4); Red Cell Distribution Width 12.7 % (11.5-14.5); White Blood Count 10.1 K/mm3 (4.5-10.0)
[2024-07-03 16:16] LABS: Alanine Aminotransferase 18 U/L (6-35); Albumin Level 4.3 g/dL (3.5-5.1); Alkaline Phosphatase 76 U/L (38-126); Anion Gap 6 mmol/L (4-12); Aspartate Amino Transferase 21 U/L (14-36); Bilirubin,Total 0.3 mg/dL (0.2-1.3); Blood Urea Nitrogen 15 mg/dL (7-17); Calcium 9.6 mg/dL (8.4-10.2); Carbon Dioxide 26 mmol/L (22-30); Chloride 109 mmol/L (98-107); Estimated CRCL calculation 94 ml/min; Estimated Glomerular Filt Rate > 60; Glucose 94 mg/dL (65-110); Potassium 4.2 mmol/L (3.4-5.0); Sodium 141 mmol/L (137-145)
[2024-07-03] MEDS: HYDROmorphone HCL INJ (*CRX) 1 MG/ML SYR 0.5 MG IV PUSH (19:37)
[2024-07-03 19:38] VITALS: BP 94/68; PULSE 101; RESP 18; O2SAT 68
[2024-07-03] MEDS: SODIUM CHLORIDE 0.9% IV 1,000 ML 999 ML IV CONT (19:39)
[2024-07-03 19:58] VITALS: BP 139/81; PULSE 83; RESP 16; O2SAT 97
[2024-07-03] MEDS: VANCOMYCIN 1,500 MG/NS 500 ML 1,500 MG/500 ML BAG 250 MG IVPB (19:58)
--- NOTE | 2024-07-03 20:04 | PC.NURSE ---
Blood cultures not needed prior to antibiotic administration per AARTI Rai.
[2024-07-03 21:20] VITALS: BP 135/65; PULSE 87; RESP 16; O2SAT 96
[2024-07-03 22:31] VITALS: BP 145/92; PULSE 90; RESP 16; O2SAT 100
--- NOTE | 2024-07-03 22:32 | PC.NURSE ---
Non-adherent pad applied to L. breast d/t small amount of drainage.
--- NOTE | 2024-07-03 23:55 | P.HP_ITS ---
H&P: HPI History of Present Illness Date/Time: 07/03/24 23:00 Chief Complaint: Left breast infection. Narrative: This is a very pleasant 43-year-old female with history of left breast surgery for what sounds like milk duct detachment many years ago, hypertension, hyperlipidemia, aortic dissection, hypothyroidism, obstructive sleep apnea, and chronic obstructive pulmonary disease who presented to the emergency department via private vehicle from home for evaluation of a left breast infection. Several weeks ago she developed redness, pain, and inflammation of the left breast around the areola and about a week later she had a small amount of bloody drainage from the left nipple and she was seen in the ED. She was diagnosed with cellulitis and prescribed Bactrim DS of which she states compliance but unfor tunately her symptoms got worse and she was seen at [facility] 2 days ago at which time she was prescribed doxycycline and was given instructions to follow up with a breast surgeon. She returns today with worsening redness, swelling, pain, and discharge. She denies fever, chills, sweats, nausea, vomiting, and diarrhea. Weight has remained stable. Mammogram last year was unremarkable. No known history of MRSA. In the ED: She was afebrile on arrival with stable vital signs. Labs were significant for WBC count 10.1, hemoglobin 11.5, ESR 76, CRP 1.0. Left breast ultrasound showed a 3.9 cm abscess at the 06:00 o'clock left breast subareolar region. She was started on vancomycin and is being admitted in this setting for further IV antibiotics and surgery consultation. Review of Systems Review of Systems: 12 systems were reviewed and are negativ e except for as per HPI. 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 Code status: Full code. Smoking status: Former smoker Tobacco type: e-cigarettes/vaping Alcohol intake: former Substance use: never Additional living arrangements comments: Lives with spouse in [place]. 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 Spiritual care concerns: No Meds Home Medications and Allergies Home Medications ?Medication ?Instructions ?Recorded ?Confirmed ?Type amlodipine 10 mg tablet 10 mg PO DAILY 07/28/21 07/01/24 History atorvastatin 80 mg tablet 80 mg PO DAILY 07/28/21 07/01/24 History lisinopril 40 mg tablet 40 mg PO DAILY 07/28/21 07/01/24 History metformin 500 mg tablet 500 mg PO DAILY 07/28/21 07/01/24 History metoprolol tartrate 100 mg tablet 100 mg PO DAILY 07/28/21 07/01/24 History levothyroxine 175 mcg tablet 175 mcg PO DAILY 12/29/22 07/01/24 History tizanidine 4 mg tablet 4 mg PO DAILY 12/29/22 07/01/24 History Lactobacillus acidophilus 10 10,000 mmu cells PO DAILY #20 caps 05/28/23 07/01/24 Rx billion cell capsule (Probiotic) ondansetron 4 mg disintegrating 4 mg PO Q8H PRN nausea and 05/28/23 07/01/24 Rx tablet vomiting #10 tabs doxycycline hyclate 100 mg capsule 100 mg PO BID #20 caps 07/01/24 Rx Allergies Allergy/AdvReac Type Severity Reaction Status Date / Time Penicillins Allergy Mild Unknown Verified 07/01/24 13:55 Vital Signs Vital Signs - 24 hr 07/03/24 13:27 07/03/24 19:38 07/03/24 19:58 Pulse Rate 87 101 H 83 Respiratory Rate 20 18 16 Blood Pressure 147/69 H 94/68 L 139/81 Pulse Oximetry 100 68 L 97 Oxygen Delivery Room Air 07/03/24 21:20 07/03/24 22:31 Pulse Rate 87 90 Respiratory Rate 16 16 Blood Pressure 135/65 145/92 H Pulse Oximetry 96 100 Oxygen Delivery Exam Narrative: General: Well-developed, nontoxic-appearing female sitting up in bed in no acute distress. Weight: 96.3 kg. BMI: 40.1. HEENT: PERRL, EOMI. Sclera anicteric. Oral mucosa moist. Neck: Supple. Respiratory: Lungs are clear to auscultation bilaterally. Cardiovascular: Regular rate and rhythm with S1-S2. Breast: There is a small amount of serosanguineous bloody discharge from a slightly inverted left nipple. The surrounding tissue is erythematous, edematous, and warm. There is a fluctuant area at the 6 o'clock position in the subareolar region. Gastrointestinal: Abdomen is soft, nontender, and nondistended with positive bowel sounds. Skin: Warm and dry. Extremities: No cyanosis, clubbing, or edema. Radial and pedal pulses intact. Neurological: Alert. Cranial nerves 2-12 are grossly intact. No gross focal deficits to casual conversation. Psychiatric: Pleasant and cooperative with normal mood and affect. Judgment and insight intact. H&P: Results Labs Labs: Short CBC 07/03/24 Range/Units 13:39 WBC 10.1 H (4.5-10.0) K/mm3 Hgb 11.5 L (12.0-15.0) g/dL Hct 35.0 L (37.0-47.0) % Plt Count 285 (150-375) k/mm3 BMP 07/03/24 13:39 Sodium 141 Potassium 4.2 Chloride 109 H Carbon Dioxide 26 BUN 15 Creatinine 0.70 Glucose 94 Calcium 9.6 Liver Function 07/03/24 Range/Units 13:39 Total Bilirubin 0.3 (0.2-1.3) mg/dL AST 21 (14-36) U/L ALT 18 (6-35) U/L Alkaline Phosphatase 76 (38-126) U/L Albumin 4.3 (3.5-5.1) g/dL Impressions Breast Ultrasound 07/03/24 14:18 IMPRESSION: 3.9 cm abscess at the 6:00 left breast subareolar region. Incision and drainage should be strongly considered. BI-RADS CATEGORY: BI-RADS 2: Benign Assessment and Plan Assessment and plan (1) Left breast abscess: Code(s): N61.1 - Abscess of the breast and nipple Status: Acute (2) Cellulitis of left breast: Code(s): N61.0 - Mastitis without abscess Status: Inactive (3) Hypertension: Code(s): I10 - Essential (primary) hypertension Status: Acute (4) Prediabetes: Code(s): R73.03 - Prediabetes Status: Acute (5) Hyperlipidemia: Code(s): E78.5 - Hyperlipidemia, unspecified Status: Acute (6) Obstructive sleep apnea: Code(s): G47.33 - Obstructive sleep apnea (adult) (pediatric) Status: Acute (7) Hypothyroidism: Code(s): E03.9 - Hypothyroidism, unspecified Status: Acute Plan The patient presented to the emergency department for evaluation of worsening left breast cellulitis with underlying abscess despite completing a course of Bactrim DS and several doses of doxycycline as detailed in HPI. Labs, imaging, EKG, and all reports were personally reviewed. She has been started on vancomycin. Nikolay consulted and the patient will be NPO after midnight for probable incision and drainage tomorrow. Analgesics are available as needed. She is reportedly prediabetic with a random glucose well within normal limits. Check hemoglobin A1c in a.m.. Blood pressures were reviewed and they are stable. Continue levothyroxine and check TSH. CPAP will be provided for the patient to use while hospitalized. Her home medications will be reviewed and resumed as appropriate. Findings and treatment plan were discussed with the patient. Questions were solicited and answered to satisfaction. The patient's medical management will be taken over by the hospitalist team in a.m. Quality VTE Prophylaxis VTE prophylaxis: mechanical ordered If No VTE Prophylaxis Answer both mechanical and pharmacologic: Reason no pharmacologic proph: medical contraindication (probable surgery tomorrow) The patient has been admitted under observation status. Hospitalist MIPS Advance Care Plan I have confirmed that the patient's Advanced Care Plan is present, code status is documented, or surrogate decision maker is listed in patient medical record.: Yes Medication Reconciliation I have utilized all available resources to obtain, update and review the patients current medications (includes all prescriptions, OTC, herbals, cannabis, and nutritional supplements).: Yes
[2024-07-03 23:59] VITALS: BP 134/76; PULSE 70; RESP 16; O2SAT 91
[2024-07-04 00:12] VITALS: BP 116/52; PULSE 100; RESP 16; TEMP 36.7; O2SAT 98; BMI 40.1
--- NOTE | 2024-07-04 00:46 | ADMGEN ---
This patient, Joanna Doherty, was admitted to -. Patient/family oriented to hospital policies and general routines including ID bracelet, bed and alarms, visiting hours, pain management, procedures, bathroom and other care routines, personal items, smoking policy, room service/diet, and visiting hours. Arrived floor 0005. Information on how to activate the Rapid Response Team has been discussed. Patient/Family are encouraged to report perceived risks to care and to ask questions if they do not understand what they are told or what they should do.
[2024-07-04 05:49] VITALS: BP 130/63; PULSE 96; RESP 18; TEMP 36.3; O2SAT 100
[2024-07-04] MEDS: LEVOTHYROXINE SODIUM 100 MCG TABLET PO (06:36)
[2024-07-04] MEDS: LEVOTHYROXINE SODIUM 75 MCG TABLET PO (06:36)
[2024-07-04] MEDS: HYDROcodone/acetaminophen (*CRX) 5-325 MG TABLET 1 TAB PO ×2 (06:40→20:14)
[2024-07-04 06:57] LABS: Hematocrit 36.4 % (37.0-47.0); Hemoglobin 11.8 g/dL (12.0-15.0); Mean Corpuscular HGB Conc 32.4 g/dl (32-36); Mean Corpuscular Hemoglobin 29.3 pg (26-34); Mean Corpuscular Volume 90.3 fl (80-100); Mean Platelet Volume 10.6 fl (7.4-10.4); Platelet Count Result 282 k/mm3 (150-375); Red Blood Count 4.03 M/mm3 (4.2-5.4); Red Cell Distribution Width 12.7 % (11.5-14.5); White Blood Count 6.8 K/mm3 (4.5-10.0)
[2024-07-04 07:08] LABS: Hemoglobin A1C 5.8 % (<5.7)
[2024-07-04 07:09] LABS: Estimated CRCL calculation 108 ml/min; Estimated Glomerular Filt Rate > 60
[2024-07-04 07:13] LABS: Anion Gap 4 mmol/L (4-12); Blood Urea Nitrogen 11 mg/dL (7-17); Calcium 9.4 mg/dL (8.4-10.2); Carbon Dioxide 28 mmol/L (22-30); Chloride 108 mmol/L (98-107); Estimated CRCL calculation 108 ml/min; Estimated Glomerular Filt Rate > 60; Glucose 111 mg/dL (65-110); Potassium 4.3 mmol/L (3.4-5.0); Sodium 140 mmol/L (137-145)
[2024-07-04 08:05] LABS: Thyroid Stimulating Hormone Reflex 0.041 uIU/mL (0.465-4.68)
[2024-07-04] MEDS: VANCOMYCIN 1,500 MG/NS 500 ML 1,500 MG/500 ML BAG 250 MG IVPB ×2 (08:17→20:15)
[2024-07-04 08:18] VITALS: PULSE 88
[2024-07-04] MEDS: amLODIPine BESYLATE 10 MG TABLET PO (08:18)
[2024-07-04] MEDS: METOPROLOL TARTRATE 50 MG TAB 100 MG PO ×2 (08:18→20:14)
[2024-07-04] MEDS: lisinopriL 20 MG TABLET 40 MG PO (08:18)
[2024-07-04] MEDS: ATORVASTATIN 40 MG TABLET 80 MG PO (08:18)
--- NOTE | 2024-07-04 10:13 | P.PNIM_ITS ---
Progress Note: A&P Assessment and Plan (1) Left breast abscess: Code(s): N61.1 - Abscess of the breast and nipple Status: Acute Assessment and Plan: The patient presented to the emergency department for evaluation of worsening left breast cellulitis with underlying abscess despite completing a course of Bactrim DS and several doses of doxycycline as detailed in HPI. Labs, imaging, EKG, and all reports were personally reviewed. She has been started on vancomycin. Nikolay consulted and the patient will be NPO tonite Analgesics are available as needed. (2) Cellulitis of left breast: Code(s): N61.0 - Mastitis without abscess Status: Inactive Assessment and Plan: see above (3) Hypertension: Code(s): I10 - Essential (primary) hypertension Status: Acute (4) Prediabetes: Code(s): R73.03 - Prediabetes Status: Acute Assessment and Plan: hga1c ordered (5) Hyperlipidemia: Code(s): E78.5 - Hyperlipidemia, unspecified Status: Acute (6) Obstructive sleep apnea: Code(s): G47.33 - Obstructive sleep apnea (adult) (pediatric) Status: Acute Assessment and Plan: continue home cpap (7) Hypothyroidism: Code(s): E03.9 - Hypothyroidism, unspecified Status: Acute Assessment and Plan: Continue levothyroxine and check TSH. Plan Time Spent With Patient Time with patient: Greater than 35 minutes Subjective Date/time seen: 07/04/24 10:13 Interval history: Left breast infection. Narrative retrieved form H/P: This is a very pleasant 43-year-old female with history of left breast surgery for what sounds like milk duct detachment many years ago, hypertension, hyperlipidemia, aortic dissection, hypothyroidism, obstructive sleep apnea, and chronic obstructive pulmonary disease who presented to the emergency department via private vehicle from home for evaluation of a left breast infection. Several weeks ago she developed redness, pain, and inflammation of the left breast around the areola and about a week later she had a small amount of bloody drainage from the left nipple and she was seen in the ED. She was diagnosed with cellulitis and prescribed Bactrim DS of which she states compliance but unfortunately her symptoms got worse and she was seen at [facility] 2 days ago at which time she was prescribed doxycycline and was given instructions to follow up with a breast surgeon. She returns today with worsening redness, swelling, pain, and discharge. She denies fever, chills, sweats, nausea, vomit ing, and diarrhea. Weight has remained stable. Mammogram last year was unremarkable. No known history of MRSA. In the ED: She was afebrile on arrival with stable vital signs. Labs were significant for WBC count 10.1, hemoglobin 11.5, ESR 76, CRP 1.0. Left breast ultrasound showed a 3.9 cm abscess at the 06:00 o'clock left breast subareolar region. She was started on vancomycin and is being admitted in this setting for further IV antibiotics and surgery consultation. 07/04- pt is seen and examined. Bactrim- completed, doxy several doses. Dr Link was consulted. NPO at midnight. Review of Systems Review of Systems: 12 systems were reviewed and are negativ e except for as per HPI. Exam Narrative: General: Well-developed, nontoxic-appearing female sitting up in bed in no acute distress. Weight: 96.3 kg. BMI: 40.1. HEENT: PERRL, EOMI. Sclera anicteric. Oral mucosa moist. Neck: Supple. Respiratory: Lungs are clear to auscultation bilaterally. Cardiovascular: Regular rate and rhythm with S1-S2. Breast: There is a small amount of serosanguineous bloody discharge from a slightly inverted left nipple. The surrounding tissue is erythematous, edematous, and warm. There is a fluctuant area at the 6 o'clock position in the subareolar region. Gastrointestinal: Abdomen is soft, nontender, and nondistended with positive bowel sounds. Skin: Warm and dry. Extremities: No cyanosis, clubbing, or edema. Radial and pedal pulses intact. Neurological: Alert. Cranial nerves 2-12 are grossly intact. No gross focal deficits to casual conversation. Psychiatric: Pleasant and cooperative with normal mood and affect. Judgment and insight intact. Objective Data Vital Signs Vital Signs: Vital Signs - 24 hr 07/03/24 13:27 07/03/24 19:38 07/03/24 19:58 Temperature Pulse Rate 87 101 H 83 Respiratory Rate 20 18 16 Blood Pressure 147/69 H 94/68 L 139/81 Pulse Oximetry 100 68 L 97 Oxygen Delivery Room Air 07/03/24 21:20 07/03/24 22:31 07/03/24 23:59 Temperature Pulse Rate 87 90 70 Respiratory Rate 16 16 16 Blood Pressure 135/65 145/92 H 134/76 Pulse Oximetry 96 100 91 Oxygen Delivery 07/04/24 00:12 07/04/24 05:49 07/04/24 08:18 Temperature 98.0 F 97.4 F L Pulse Rate 100 96 88 Respiratory Rate 16 18 Blood Pressure 116/52 L 130/63 Pulse Oximetry 98 100 Oxygen Delivery Intake/Output Intake/Output: Intake & Output 07/01/24 07/02/24 07/03/24 07/04/24 23:59 23:59 23:59 23:59 Intake Total 1000 1050 Balance 1000 1050 Meds/Results Medications: Active Medications Generic Name Dose Route Start Last Admin Trade Name Freq PRN Reason Stop Dose Admin Acetaminophen 650 mg 07/04/24 03:39 Acetaminophen 325 Mg Tablet PO Q6H PRN Mild Pain (1-3) or Fever Hydrocodone Bitart/Acetaminophen 1 tab 07/04/24 03:39 07/04/24 06:40 Hydrocodone/Acetaminophen (*Crx) 5-325 Mg Tablet PO 1 tab Q6H PRN Administration Pain Rated 4-6 Amlodipine Besylate 10 mg 07/04/24 09:00 07/04/24 08:18 Amlodipine Besylate 10 Mg Tablet PO 10 mg DAILY ARGENIS Administration Atorvastatin Calcium 80 mg 07/04/24 09:00 07/04/24 08:18 Atorvastatin 40 Mg Tablet PO 80 mg DAILY ARGENIS Administration Hydromorphone HCl 0.5 mg 07/04/24 03:39 Hydromorphone Hcl Inj (*Crx) 1 Mg/Ml Syr IV PUSH Q3H PRN Pain Rated 7-10 Vancomycin HCl 1,500 mg in 500 mls @ 250 mls/hr 07/04/24 08:00 07/04/24 08:17 Vancomycin 1,500 Mg/Ns 500 Ml IVPB 250 mls/hr Q12H ARGENIS Administration Ketorolac Tromethamine 30 mg 07/03/24 21:41 Ketorolac 30 Mg/Ml Vial (*Bkc) IV PUSH 07/08/24 21:40 Q6H PRN Pain Rated 4-6 Levothyroxine Sodium 100 mcg 07/04/24 06:30 07/04/24 06:36 Levothyroxine Sodium 100 Mcg Tablet PO 100 mcg DAILY@0630 ARGENIS Administration Levothyroxine Sodium 75 mcg 07/04/24 06:30 07/04/24 06:36 Levothyroxine Sodium 75 Mcg Tablet PO 75 mcg DAILY@0630 [facility] Administration Lisinopril 40 mg 07/04/24 09:00 07/04/24 08:18 Lisinopril 20 Mg Tablet PO 40 mg DAILY ARGENIS Administration Metoprolol Tartrate 100 mg 07/04/24 09:00 07/04/24 08:18 Metoprolol Tartrate 50 Mg Tab PO 100 mg Q12H ARGENIS Administration Ondansetron HCl 4 mg 07/03/24 21:41 Ondansetron Inj 4 Mg/2 Ml Vial IV PUSH Q4H PRN Nausea Tizanidine HCl 4 mg 07/04/24 05:09 Tizanidine Hcl 4 Mg Tablet PO Q6H PRN restless leg(s) Radiology Results: ITS Impressions Breast Ultrasound 07/03/24 14:18 IMPRESSION: 3.9 cm abscess at the 6:00 left breast subareolar region. Incision and drainage should be strongly considered. BI-RADS CATEGORY: BI-RADS 2: Benign Labs Labs: Laboratory Results - last 24 hr 07/03/24 07/04/24 07/04/24 13:39 06:06 06:06 WBC 10.1 H 6.8 RBC 3.84 L 4.03 L Hgb 11.5 L 11.8 L Hct 35.0 L 36.4 L MCV 91.1 90.3 MCH 29.9 29.3 MCHC 32.9 32.4 RDW 12.7 12.7 Plt Count 285 282 MPV 10.6 H 10.6 H Immature Gran % (Auto) 0.3 Neut % (Auto) 63.8 Lymph % (Auto) 23.6 Lamb % (Auto) 9.0 H Eos % (Auto) 2.5 Baso % (Auto) 0.8 Lymph # (Auto) 2.37 Lamb # (Auto) 0.9 H Eos # (Auto) 0.3 Baso # (Auto) 0.1 Abs Immat Gran (auto) 0.03 Absolute Neuts (auto) 6.4 Absolute Nucleated RBC 0.000 Nucleated RBC % 0.0 ESR 76 H Sodium 141 140 Potassium 4.2 4.3 Chloride 109 H 108 H Carbon Dioxide 26 28 Anion Gap 6 4 BUN 15 11 Creatinine 0.70 0.60 L 0.60 L Estim Creat Clear Calc 94 108 Estimated GFR > 60 Glucose 94 Hemoglobin A1c Calcium 9.6 Total Bilirubin 0.3 AST 21 ALT 18 Alkaline Phosphatase 76 C-Reactive Protein 1.0 Total Protein 8.0 Albumin 4.3 TSH (Reflex) 07/04/24 07/04/24 06:06 06:06 WBC RBC Hgb Hct MCV MCH MCHC RDW Plt Count MPV Immature Gran % (Auto) Neut % (Auto) Lymph % (Auto) Lamb % (Auto) Eos % (Auto) Baso % (Auto) Lymph # (Auto) Lamb # (Auto) Eos # (Auto) Baso # (Auto) Abs Immat Gran (auto) Absolute Neuts (auto) Absolute Nucleated RBC Nucleated RBC % ESR Sodium Potassium Chloride Carbon Dioxide Anion Gap BUN Creatinine Estim Creat Clear Calc 108 Estimated GFR > 60 > 60 Glucose 111 H Hemoglobin A1c 5.8 H Calcium 9.4 Total Bilirubin AST ALT Alkaline Phosphatase C-Reactive Protein Total Protein Albumin TSH (Reflex) 0.041 L Quality VTE Prophylaxis VTE prophylaxis: mechanical ordered
[2024-07-04 14:00] VITALS: BP 119/58; PULSE 72; RESP 18; TEMP 36.3; O2SAT 100
--- NOTE | 2024-07-04 14:03 | P.CONGS_ITS ---
Assessment and Plan Assessment and plan (1) Left breast abscess: Code(s): N61.1 - Abscess of the breast and nipple Status: Acute Assessment and Plan: Much improved after initial aspiration and antibiotic treatment. Will order repeat needle aspiration under ultrasound guidance in x-ray tomorrow. Can probably go home on Bactrim later in the day or Tuesday morning. See me in the office on Tuesday, July 09, 2024, for re-evaluation and possible repeat aspiration. History of Present Illness Consult details Consult date: 07/04/24 Reason for consult: other (Left breast abscess) Requesting physician: Fredi Morales PA-C Narrative: Patient is a 43-year-old woman who has had left breast pain and evidence of mastitis since the beginning of June. She was seen in the emergency room on June 17. Imaging did not show an abscess and she was treated with Bactrim. She completed this and then came back to the emergency room with worsened left breast pain in the areola region. No abscess was appreciated and she was given a prescription for doxycycline for 10 days. She returned to the emergency room yesterday and exam now showed an abscess. Ultrasound of the breast showed a 3.5 cm subareolar abscess. This was aspirated by the emergency room provider and 1 cc of purulent fluid was removed. Patient reports that after the aspiration, the pain improved significantly. She was able to sleep last night and feels better today but there is still left breast pain. She is on broad-spectrum antibiotics and is seen now in consultation. She has a remote history of left and right breast abscesses 10-15 years ago. She is obese but has quit smoking. Review of Systems 2 Review of Systems: All systems reviewed & are unremarkable except as noted in HPI and below (HPI and those items noted below) Constitutional: Constitutional: Denies chills and Denies fever(s) Cardiovascular: Cardiovascular: Denies chest pain, Denies diaphoresis, Denies dyspnea and Denies paroxysmal nocturnal dyspnea Respiratory: Respiratory: Denies chest congestion, Denies cough and Denies dyspnea Integumentary/Breasts: Skin/Breast: Denies lesions and Denies rash PMFSH Past Medical History Medical History Prediabetes Chronic obstructive pulmonary disease Obstructive sleep apnea Hyperlipidemia Hypertension Aortic dissection ADHD Hypothyroidism Surgical History Surgical History History of nasal septoplasty 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 Code status: Full code. Smoking status: Never smoker Tobacco type: e-cigarettes/vaping Alcohol intake: former Substance use: never Substance use type: does not use Do You Feel Safe in your Home?: Yes Lack of Transportation: No Lack of Food: Never True Current Housing: I Have Housing Concerned About Future Housing: No Difficulty Paying Gas/Electric Bills: No Difficulty Paying for Meds: No Currently Unemployed: No Education: High School Diploma/GED Difficulty w/ Childcare or Family Care: No Additional living arrangements comments: Lives with spouse in [place]. 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 Gender identity (if verbalized by the patient): Female Sexual Orientation (if Verbalized by the Patient): Lesbian, Jordan, or Homosexual Spiritual care concerns: No Meds Home Medications and Allergies Home Medications ?Medication ?Instructions ?Recorded ?Confirmed ?Type amlodipine 10 mg tablet 10 mg PO DAILY 07/28/21 07/04/24 History atorvastatin 80 mg tablet 80 mg PO DAILY 07/28/21 07/04/24 History lisinopril 40 mg tablet 40 mg PO DAILY 07/28/21 07/04/24 History metformin 500 mg tablet 500 mg PO DAILY 07/28/21 07/04/24 History metoprolol tartrate 100 mg tablet 100 mg PO Q12H 07/28/21 07/04/24 History levothyroxine 175 mcg tablet 175 mcg PO DAILY 12/29/22 07/04/24 History tizanidine 4 mg tablet 4 mg PO Q6H PRN restless leg(s) 12/29/22 07/04/24 History doxycycline hyclate 100 mg capsule 100 mg PO BID #20 caps 07/01/24 07/04/24 Rx acetaminophen 325 mg capsule 650 mg PO Q4H PRN pain 07/04/24 07/04/24 History (Tylenol) Allergies Allergy/AdvReac Type Severity Reaction Status Date / Time Penicillins Allergy Mild Unknown Verified 07/04/24 04:38 Vital Signs Vital Signs - 24 hr 07/03/24 19:38 07/03/24 19:58 07/03/24 21:20 Temperature Pulse Rate 101 H 83 87 Respiratory Rate 18 16 16 Blood Pressure 94/68 L 139/81 135/65 Pulse Oximetry 68 L 97 96 07/03/24 22:31 07/03/24 23:59 07/04/24 00:12 Temperature 36.7 C Pulse Rate 90 70 100 Respiratory Rate 16 16 16 Blood Pressure 145/92 H 134/76 116/52 L Pulse Oximetry 100 91 98 07/04/24 05:49 07/04/24 08:18 07/04/24 14:00 Temperature 36.3 C L 36.3 C L Pulse Rate 96 88 72 Respiratory Rate 18 18 Blood Pressure 130/63 119/58 L Pulse Oximetry 100 100 Exam 2 Const: General: comfortable, no acute distress, alert, awake and obese O rientation/consciousness: patient oriented x3 and No confusion HENMT: Head: normocephalic and atraumatic Mouth: Yes Normal oral and palatal mucosa present Eyes: Conjunctivae: conjunctivae normal Pupils: Equal, round and reactive pupils present EOM: EOMs intact bilaterally Neck: Neck: normal visual inspection, no lymphadenopathy and nontender Chest: Breast/axilla inspection: abnormal inspection of the breast (Left breast with small fluctuant pocket subareolar area about 9:00. ) Other: Minimal associated left breast erythema or cellulitis. Still has skin covering the abscess. Resp: Effort & Inspection: normal respiratory effort Auscultation: clear to auscultation bilaterally Cardio: Rate: regular rate Rhythm: regular rhythm Heart sounds: no gallops, no murmurs and no rubs GI: Inspection: non-distended GI Palp: Yes Soft to palpation, No Tenderness to palpation present (GI), No Hepatomegaly present and No Splenomegaly present Skin: Lesions: no lesions Rashes: no rashes Neuro: General: no focal motor deficits and CN's II-XI intact bilaterally C ranial nerves: Yes Equal, round and reactive pupils present, Yes Bilaterally intact EOM present, Yes facial symmetry and Yes Midline tongue present S peech: normal speech Motor exam (neuro): 5/5 motor strength present throughout and Motor abnormalities not present Extrem: General: no clubbing, cyanosis or edema and edema Psych: Affect: normal affect Thought process: Normal thought process present Insight: Good insight present (Psych) Results Labs 07/04/24 06:06 07/04/24 06:06 Labs: Abnormal lab results 07/03/24 07/04/24 07/04/24 Range/Units 13:39 06:06 06:06 WBC 10.1 H (4.5-10.0) K/mm3 RBC 3.84 L 4.03 L (4.2-5.4) M/mm3 Hgb 11.5 L 11.8 L (12.0-15.0) g/dL Hct 35.0 L 36.4 L (37.0-47.0) % MPV 10.6 H 10.6 H (7.4-10.4) fl [place] % (Auto) 9.0 H (2.6-8.5) % [place] # (Auto) 0.9 H (0.1-0.6) K/mm3 ESR 76 H (0-20) mm/hr Chloride 109 H 108 H (98-107) mmol/L Creatinine 0.60 L 0.60 L (0.7-1.0) mg/dL Glucose 111 H (65-110) mg/dL Hemoglobin A1c 5.8 H (<5.7) % TSH (Reflex) 0.041 L (0.465-4.68) uIU/mL Diabetes panel 07/03/24 07/04/24 07/04/24 Range/Units 13:39 06:06 06:06 Sodium 141 140 (137-145) mmol/L Potassium 4.2 4.3 (3.4-5.0) mmol/L Chloride 109 H 108 H (98-107) mmol/L Carbon Dioxide 26 28 (22-30) mmol/L BUN 15 11 (7-17) mg/dL Creatinine 0.70 0.60 L 0.60 L (0.7-1.0) mg/dL Glucose 94 111 H (65-110) mg/dL Hemoglobin A1c 5.8 H (<5.7) % Calcium 9.6 9.4 (8.4-10.2) mg/dL AST 21 (14-36) U/L ALT 18 (6-35) U/L Alkaline Phosphatase 76 (38-126) U/L Total Protein 8.0 (6.3-8.2) g/dL Albumin 4.3 (3.5-5.1) g/dL Calcium panel 07/03/24 07/04/24 Range/Units 13:39 06:06 Calcium 9.6 9.4 (8.4-10.2) mg/dL Albumin 4.3 (3.5-5.1) g/dL Pituitary panel 07/03/24 07/04/24 07/04/24 Range/Units 13:39 06:06 06:06 Sodium 141 140 (137-145) mmol/L Potassium 4.2 4.3 (3.4-5.0) mmol/L Chloride 109 H 108 H (98-107) mmol/L Carbon Dioxide 26 28 (22-30) mmol/L BUN 15 11 (7-17) mg/dL Creatinine 0.70 0.60 L 0.60 L (0.7-1.0) mg/dL Glucose 94 111 H (65-110) mg/dL Calcium 9.6 9.4 (8.4-10.2) mg/dL Adrenal panel 07/03/24 07/04/24 07/04/24 Range/Units 13:39 06:06 06:06 Sodium 141 140 (137-145) mmol/L Potassium 4.2 4.3 (3.4-5.0) mmol/L Chloride 109 H 108 H (98-107) mmol/L Carbon Dioxide 26 28 (22-30) mmol/L BUN 15 11 (7-17) mg/dL Creatinine 0.70 0.60 L 0.60 L (0.7-1.0) mg/dL Glucose 94 111 H (65-110) mg/dL Calcium 9.6 9.4 (8.4-10.2) mg/dL Total Bilirubin 0.3 (0.2-1.3) mg/dL AST 21 (14-36) U/L ALT 18 (6-35) U/L Alkaline Phosphatase 76 (38-126) U/L Total Protein 8.0 (6.3-8.2) g/dL Albumin 4.3 (3.5-5.1) g/dL All other labs normal.
[2024-07-04 14:31] LABS: Free T4 Free Thyroxine Reflex 2.11 ng/dL (0.78-2.19)
[2024-07-04 20:14] VITALS: PULSE 65
[2024-07-04 21:31] LABS: Total Triiodothyronine (T3) 1.25 NG/ML (0.97-1.69)
[2024-07-04 21:32] VITALS: BP 122/56; PULSE 57; RESP 12; TEMP 36.4; O2SAT 99
[2024-07-04] MEDS: SULFAMETHOXAZOLE/TRIMETHOPRIM 800/160 MG DS TABLET 2 TAB PO (22:30)
[2024-07-04] MEDS: diphenhydrAMINE HCl CAP 25 MG CAPSULE 50 MG PO (22:30)
[2024-07-05 04:49] VITALS: BP 121/65; PULSE 79; RESP 12; TEMP 36.5; O2SAT 100
[2024-07-05] MEDS: LEVOTHYROXINE SODIUM 100 MCG TABLET PO (05:34)
[2024-07-05] MEDS: LEVOTHYROXINE SODIUM 75 MCG TABLET PO (05:34)
[2024-07-05 06:58] LABS: Hematocrit 38.3 % (37.0-47.0); Hemoglobin 12.4 g/dL (12.0-15.0); Mean Corpuscular HGB Conc 32.4 g/dl (32-36); Mean Corpuscular Hemoglobin 29.4 pg (26-34); Mean Corpuscular Volume 90.8 fl (80-100); Mean Platelet Volume 10.4 fl (7.4-10.4); Platelet Count Result 292 k/mm3 (150-375); Red Blood Count 4.22 M/mm3 (4.2-5.4); Red Cell Distribution Width 12.4 % (11.5-14.5); White Blood Count 7.2 K/mm3 (4.5-10.0)
[2024-07-05 07:12] LABS: Anion Gap 5 mmol/L (4-12); Blood Urea Nitrogen 13 mg/dL (7-17); Calcium 9.6 mg/dL (8.4-10.2); Carbon Dioxide 24 mmol/L (22-30); Chloride 109 mmol/L (98-107); Estimated CRCL calculation 93 ml/min; Estimated Glomerular Filt Rate > 60; Glucose 112 mg/dL (65-110); Potassium 4.4 mmol/L (3.4-5.0); Sodium 138 mmol/L (137-145)
[2024-07-05 08:26] LABS: Mean Platelet Volume 10.4 fl (7.4-10.4); Platelet Count Result 278 k/mm3 (150-375)
[2024-07-05] MEDS: HYDROcodone/acetaminophen (*CRX) 5-325 MG TABLET 1 TAB PO (08:31)
[2024-07-05] MEDS: lisinopriL 20 MG TABLET 40 MG PO (08:31)
[2024-07-05] MEDS: ATORVASTATIN 40 MG TABLET 80 MG PO (08:31)
[2024-07-05] MEDS: SULFAMETHOXAZOLE/TRIMETHOPRIM 800/160 MG DS TABLET 2 TAB PO (08:31)
[2024-07-05] MEDS: METOPROLOL TARTRATE 50 MG TAB 100 MG PO (08:31)
[2024-07-05] MEDS: amLODIPine BESYLATE 10 MG TABLET PO (08:31)
[2024-07-05 08:45] LABS: INR 0.9; Partial Thromboplastin Time 23.9 Seconds (22.3-36.8); Prothrombin Time 12.7 Seconds (11.1-14.7)
[2024-07-05 14:00] VITALS: BP 134/62; PULSE 101; RESP 14; TEMP 37.8; O2SAT 98
--- NOTE | 2024-07-05 14:02 | PM.PNGS ---
Progress Note: A&P Assessment and Plan (1) Left breast abscess: Code(s): N61.1 - Abscess of the breast and nipple Status: Acute Assessment and Plan: US-guided aspiration of left breast abscess in Radiology ordered for today. She would be surgically stable for discharge on Bactrim after aspiration. She could follow-up with Dr. Link in the office on 07/09/24 for re-evaluation and possible repeat aspiration. Plan I have discussed the patient's case and plan of care with Dr. Link. Subjective Subjective Date/Time Seen: 07/05/24 14:02 Interval history: Chart reviewed. This is a 43 yo woman admitted with left breast abscess and scheduled for US guided aspiration in Radiology today. She reports waking up this morning with cough, chills, and generalized malaise. She reports having scant amount of nipple drainage on her gown this morning. None noted on exam. Exam Const: General: comfortable and no acute distress Chest: Other: Left breast with erythema and induration subareolar with slight fluctuance at about 8 o'clock, utility tender carding, no nipple drainage or inversion Objective Data Vital Signs Vital Signs: Vital Signs - 24 hr 07/04/24 20:00 07/04/24 20:14 07/04/24 21:32 Temperature 97.5 F L Pulse Rate 65 57 L Respiratory Rate 12 Blood Pressure 122/56 L Pulse Oximetry 99 Oxygen Delivery Room Air 07/05/24 04:49 07/05/24 08:00 Temperature 97.7 F Pulse Rate 79 Respiratory Rate 12 Blood Pressure 121/65 Pulse Oximetry 100 Oxygen Delivery Room Air Intake/Output Intake/Output: Intake & Output 07/02/24 07/03/24 07/04/24 07/05/24 23:59 23:59 23:59 23:59 Intake Total 1000 2520 900 Balance 1000 2520 900 Meds/Results Medications: Active Medications Generic Name Dose Route Start Last Admin Trade Name Freq PRN Reason Stop Dose Admin Acetaminophen 650 mg 07/04/24 03:39 Acetaminophen 325 Mg Tablet PO Q6H PRN Mild Pain (1-3) or Fever Hydrocodone Bitart/Acetaminophen 1 tab 07/04/24 03:39 07/05/24 08:31 Hydrocodone/Acetaminophen (*Crx) 5-325 Mg Tablet PO 1 tab Q6H PRN Administration Pain Rated 4-6 Amlodipine Besylate 10 mg 07/04/24 09:00 07/05/24 08:31 Amlodipine Besylate 10 Mg Tablet PO 10 mg DAILY ARGENIS Administration Atorvastatin Calcium 80 mg 07/04/24 09:00 07/05/24 08:31 Atorvastatin 40 Mg Tablet PO 80 mg DAILY ARGENIS Administration Hydromorphone HCl 0.5 mg 07/04/24 03:39 Hydromorphone Hcl Inj (*Crx) 1 Mg/Ml Syr IV PUSH Q3H PRN Pain Rated 7-10 Ketorolac Tromethamine 30 mg 07/03/24 21:41 Ketorolac 30 Mg/Ml Vial (*Bkc) IV PUSH 07/08/24 21:40 Q6H PRN Pain Rated 4-6 Levothyroxine Sodium 100 mcg 07/04/24 06:30 07/05/24 05:34 Levothyroxine Sodium 100 Mcg Tablet PO 100 mcg DAILY@0630 ARGENIS Administration Levothyroxine Sodium 75 mcg 07/04/24 06:30 07/05/24 05:34 Levothyroxine Sodium 75 Mcg Tablet PO 75 mcg DAILY@0630 ARGENIS Administration Lisinopril 40 mg 07/04/24 09:00 07/05/24 08:31 Lisinopril 20 Mg Tablet PO 40 mg DAILY ARGENIS Administration Metoprolol Tartrate 100 mg 07/04/24 09:00 07/05/24 08:31 Metoprolol Tartrate 50 Mg Tab PO 100 mg Q12H ARGENIS Administration Ondansetron HCl 4 mg 07/03/24 21:41 Ondansetron Inj 4 Mg/2 Ml Vial IV PUSH Q4H PRN Nausea Tizanidine HCl 4 mg 07/04/24 05:09 Tizanidine Hcl 4 Mg Tablet PO Q6H PRN restless leg(s) Trimethoprim/Sulfamethoxazole 2 tab 07/04/24 22:10 07/05/24 08:31 Sulfamethoxazole/Trimethoprim 800/160 Mg Ds Tablet PO 2 tab Q12HR ARGENIS Administration Radiology Results: ITS Impressions Breast Ultrasound 07/03/24 14:18 IMPRESSION: 3.9 cm abscess at the 6:00 left breast subareolar region. Incision and drainage should be strongly considered. BI-RADS CATEGORY: BI-RADS 2: Benign Labs Labs: Laboratory Results - last 24 hr 07/04/24 07/05/24 07/05/24 06:06 06:45 08:06 WBC 7.2 RBC 4.22 Hgb 12.4 Hct 38.3 MCV 90.8 MCH 29.4 MCHC 32.4 RDW 12.4 Plt Count 292 278 MPV 10.4 10.4 PT 12.7 INR 0.9 APTT 23.9 Sodium 138 Potassium 4.4 Chloride 109 H Carbon Dioxide 24 Anion Gap 5 BUN 13 Creatinine 0.70 Estim Creat Clear Calc 93 Estimated GFR > 60 Glucose 112 H Calcium 9.6 C-Reactive Protein 1.0 Free T4 2.11 Total T3 1.25
[2024-07-05] MEDS: ACETAMINOPHEN 325 MG TABLET 650 MG PO (14:14)
--- NOTE | 2024-07-05 14:54 | P.PNIM_ITS ---
Progress Note: A&P Assessment and Plan (1) Left breast abscess: Code(s): N61.1 - Abscess of the breast and nipple Status: Acute Assessment and Plan: The patient presented to the emergency department for evaluation of worsening left breast cellulitis with underlying abscess despite completing a course of Bactrim DS and several doses of doxycycline as detailed in HPI. Labs, imaging, EKG, and all reports were personally reviewed. She has been started on vancomycin. Nikolay consulted and the patient will be NPO tonite Analgesics are available as needed. 1/2 - i/d today jim cardozo (2) Cellulitis of left breast: Code(s): N61.0 - Mastitis without abscess Status: Inactive Assessment and Plan: see above (3) Hypertension: Code(s): I10 - Essential (primary) hypertension Status: Acute (4) Prediabetes: Code(s): R73.03 - Prediabetes Status: Acute Assessment and Plan: hga1c ordered (5) Hyperlipidemia: Code(s): E78.5 - Hyperlipidemia, unspecified Status: Acute (6) Obstructive sleep apnea: Code(s): G47.33 - Obstructive sleep apnea (adult) (pediatric) Status: Acute Assessment and Plan: continue home cpap (7) Hypothyroidism: Code(s): E03.9 - Hypothyroidism, unspecified Status: Acute Assessment and Plan: Continue levothyroxine and check TSH. Plan # cough will get chest xray, flu/covid swab Time Spent With Patient Time with patient: Greater than 35 minutes Subjective Date/time seen: 07/05/24 14:54 Interval history: Left breast infection. Narrative retrieved form H/P: This is a very pleasant 43-year-old female with history of left breast surgery for what sounds like milk duct detachment many years ago, hypertension, hyperlipidemia, aortic dissection, hypothyroidism, obstructive sleep apnea, and chronic obstructive pulmonary disease who presented to the emergency department via private vehicle from home for evaluation of a left breast infection. Several weeks ago she developed redness, pain, and inflammation of the left breast around the areola and about a week later she had a small amount of bloody drainage from the left nipple and she was seen in the ED. She was diagnosed with cellulitis and prescribed Bactrim DS of which she states compliance but unfortunately her symptoms got worse and she was seen at [facility] ago at which time she was prescribed doxycycline and was given instructions to follow up with a breast surgeon. She returns today with worsening redness, swelling, pain, and discharge. She denies fever, chills, sweats, nausea, vomiting, and diarrhea. Weight has remained stable. Mammogram last year was unremarkable. No known history of MRSA. In the ED: She was afebrile on arrival with stable vital signs. Labs were significant for WBC count 10.1, hemoglobin 11.5, ESR 76, CRP 1.0. Left breast ultrasound showed a 3.9 cm abscess at the 06:00 o'clock left breast subareolar region. She was started on vancomycin and is being admitted in this setting for further IV antibiotics and surgery consultation. 07/04- pt is seen and examined. Bactrim- completed, doxy several doses. Dr Link was consulted. NPO at midnight. 07/05 developed allergic reaction to vanc overnight. it was stopped and benadryl was given. today she is supposed to have i/d and would be stable from surgical standpoint to go home with Bactrim. she developed some cough overnight and overall feeling fatigued. so will monitor overnight. Review of Systems Review of Systems: 12 systems were reviewed and are negativ e except for as per HPI. Exam Narrative: General: Well-developed, nontoxic-appearing female sitting up in bed in no acute distress. Weight: 96.3 kg. BMI: 40.1. HEENT: PERRL, EOMI. Sclera anicteric. Oral mucosa moist. Neck: Supple. Respiratory: Lungs are clear to auscultation bilaterally. Cardiovascular: Regular rate and rhythm with S1-S2. Breast: There is a small amount of serosanguineous bloody discharge from a slightly inverted left nipple. The surrounding tissue is erythematous, edematous, and warm. There is a fluctuant area at the 6 o'clock position in the subareolar region. Gastrointestinal: Abdomen is soft, nontender, and nondistended with positive bowel sounds. Skin: Warm and dry. Extremities: No cyanosis, clubbing, or edema. Radial and pedal pulses intact. Neurological: Alert. Cranial nerves 2-12 are grossly intact. No gross focal deficits to casual conversation. Psychiatric: Pleasant and cooperative with normal mood and affect. Judgment and insight intact. Objective Data Vital Signs Vital Signs: Vital Signs - 24 hr 01/01/25 20:00 07/04/24 20:14 07/04/24 21:32 Temperature 97.5 F L Pulse Rate 65 57 L Respiratory Rate 12 Blood Pressure 122/56 L Pulse Oximetry 99 Oxygen Delivery Room Air 07/05/24 04:49 07/05/24 08:00 07/05/24 14:00 Temperature 97.7 F 100.1 F H Pulse Rate 79 101 H Respiratory Rate 12 14 Blood Pressure 121/65 134/62 Pulse Oximetry 100 98 Oxygen Delivery Room Air Intake/Output Intake/Output: Intake & Output 07/02/24 07/03/24 07/04/24 07/05/24 23:59 23:59 23:59 23:59 Intake Total 1000 2520 1880 Balance 1000 2520 1880 Meds/Results Medications: Active Medications Generic Name Dose Route Start Last Admin Trade Name Freq PRN Reason Stop Dose Admin Acetaminophen 650 mg 07/04/24 03:39 07/05/24 14:14 Acetaminophen 325 Mg Tablet PO 650 mg Q6H PRN Administration Mild Pain (1-3) or Fever Hydrocodone Bitart/Acetaminophen 1 tab 07/04/24 03:39 07/05/24 08:31 Hydrocodone/Acetaminophen (*Crx) 5-325 Mg Tablet PO 1 tab Q6H PRN Administration Pain Rated 4-6 Amlodipine Besylate 10 mg 07/04/24 09:00 07/05/24 08:31 Amlodipine Besylate 10 Mg Tablet PO 10 mg DAILY ARGENIS Administration Atorvastatin Calcium 80 mg 07/04/24 09:00 07/05/24 08:31 Atorvastatin 40 Mg Tablet PO 80 mg DAILY ARGENIS Administration Diphenhydramine HCl 50 mg 07/05/24 14:48 Diphenhydramine Hcl Cap 25 Mg Capsule PO Q6H PRN Itching Famotidine 20 mg 07/06/24 09:00 Famotidine 20 Mg Tablet PO DAILY ARGENIS Hydromorphone HCl 0.5 mg 07/04/24 03:39 Hydromorphone Hcl Inj (*Crx) 1 Mg/Ml Syr IV PUSH Q3H PRN Pain Rated 7-10 Ketorolac Tromethamine 30 mg 07/03/24 21:41 Ketorolac 30 Mg/Ml Vial (*Bkc) IV PUSH 07/08/24 21:40 Q6H PRN Pain Rated 4-6 Levothyroxine Sodium 100 mcg 07/04/24 06:30 07/05/24 05:34 Levothyroxine Sodium 100 Mcg Tablet PO 100 mcg DAILY@0630 [facility] Administration Levothyroxine Sodium 75 mcg 07/04/24 06:30 07/05/24 05:34 Levothyroxine Sodium 75 Mcg Tablet PO 75 mcg DAILY@0630 ARGENIS Administration Lisinopril 40 mg 07/04/24 09:00 07/05/24 08:31 Lisinopril 20 Mg Tablet PO 40 mg DAILY ARGENIS Administration Metoprolol Tartrate 100 mg 07/04/24 09:00 07/05/24 08:31 Metoprolol Tartrate 50 Mg Tab PO 100 mg Q12H ARGENIS Administration Ondansetron HCl 4 mg 07/03/24 21:41 Ondansetron Inj 4 Mg/2 Ml Vial IV PUSH Q4H PRN Nausea Tizanidine HCl 4 mg 07/04/24 05:09 Tizanidine Hcl 4 Mg Tablet PO Q6H PRN restless leg(s) Trimethoprim/Sulfamethoxazole 2 tab 07/04/24 22:10 07/05/24 08:31 Sulfamethoxazole/Trimethoprim 800/160 Mg Ds Tablet PO 2 tab Q12HR ARGENIS Administration Radiology Results: ITS Impressions Breast Ultrasound 07/03/24 14:18 IMPRESSION: 3.9 cm abscess at the 6:00 left breast subareolar region. Incision and drainage should be strongly considered. BI-RADS CATEGORY: BI-RADS 2: Benign Labs Labs: Laboratory Results - last 24 hr 07/04/24 07/05/24 07/05/24 06:06 06:45 08:06 WBC 7.2 RBC 4.22 Hgb 12.4 Hct 38.3 MCV 90.8 MCH 29.4 MCHC 32.4 RDW 12.4 Plt Count 292 278 MPV 10.4 10.4 PT 12.7 INR 0.9 APTT 23.9 Sodium 138 Potassium 4.4 Chloride 109 H Carbon Dioxide 24 Anion Gap 5 BUN 13 Creatinine 0.70 Estim Creat Clear Calc 93 Estimated GFR > 60 Glucose 112 H Calcium 9.6 C-Reactive Protein 1.0 Total T3 1.25 Quality VTE Prophylaxis VTE prophylaxis: mechanical ordered
[2024-07-05 14:58] LABS: Influenza A QL RT-PCR Positive (Negative); Influenza B QL RT-PCR Negative (Negative); RSV RNA, RT-PCR Negative (Negative); SARS-CoV-2 RNA PCR Negative (Negative)
--- NOTE | 2024-07-05 15:07 | P.DS_ITS ---
DS: Admitting Diagnosis Discharge Date 07/05 Admitting Diagnosis breast abscess DS: Discharge Diagnosis Discharge Diagnosis (1) Left breast abscess: Code(s): N61.1 - Abscess of the breast and nipple Status: Acute (2) Cellulitis of left breast: Code(s): N61.0 - Mastitis without abscess Status: Inactive (3) Hypertension: Code(s): I10 - Essential (primary) hypertension Status: Acute (4) Prediabetes: Code(s): R73.03 - Prediabetes Status: Acute (5) Hyperlipidemia: Code(s): E78.5 - Hyperlipidemia, unspecified Status: Acute (6) Obstructive sleep apnea: Code(s): G47.33 - Obstructive sleep apnea (adult) (pediatric) Status: Acute (7) Hypothyroidism: Code(s): E03.9 - Hypothyroidism, unspecified Status: Acute DS: Summary Hospital Course Hospital Course: Left breast infection. Narrative retrieved form H/P: This is a very pleasant 43-year-old female with history of left breast surgery for what sounds like milk duct detachment many years ago, hypertension, hyperlipidemia, aortic dissection, hypothyroidism, obstructive sleep apnea, and chronic obstructive pulmonary disease who presented to the emergency department via private vehicle from home for evaluation of a left breast infection. Several weeks ago she developed redness, pain, and inflammation of the left breast around the areola and about a week later she had a small amount of bloody drainage from the left nipple and she was seen in the ED. She was diagnosed with cellulitis and prescribed Bactrim DS of which she states compliance but unfortunately her symptoms got worse and she was seen at [facility] 2 days ago at which time she was prescribed doxycycline and was given instructions to follow up with a breast surgeon. She returns today with worsening redness, swelling, pain, and discharge. She denies fever, chills, sweats, nausea, vomiting, and diarrhea. Weight has remained stable. Mammogram last year was unremarkable. No known history of MRSA. In the ED: She was afebrile on arrival with stable vital signs. Labs were significant for WBC count 10.1, hemoglobin 11.5, ESR 76, CRP 1.0. Left breast ultrasound showed a 3.9 cm abscess at the 06:00 o'clock left breast subareolar region. She was started on vancomycin and is being admitted in this setting for further IV antibiotics and surgery consultation. 1/2 developed allergic reaction to vanc overnight. it was stopped and benadryl was given. today she is supposed to have i/d and would be stable from surgical standpoint to go home with Bactrim. she developed some cough overnight and overall feeling fatigued. so will monitor overnight. she is tested positive for flu but still wants to go home after i/D discussed treatment- will go with supportive measures for now. Pt is to take bactrum and f/u with DR Link on 07/09 Status at Discharge Functional status at discharge: independent ambulation Overall status at discharge: patient is progressing back to baseline Time Spent with Patient Time attestation: Total time spent providing and/or coordinating discharge services: Time spent: Greater than 30 minutes Exam Narrative: General: Well-developed, nontoxic-appearing female sitting up in bed in no acute distress. Weight: 96.3 kg. BMI: 40.1. HEENT: PERRL, EOMI. Sclera anicteric. Oral mucosa moist. Neck: Supple. Respiratory: Lungs are clear to auscultation bilaterally. Cardiovascular: Regular rate and rhythm with S1-S2. Breast: There is a small amount of serosanguineous bloody discharge from a slightly inverted left nipple. The surrounding tissue is erythematous, edematous, and warm. There is a fluctuant area at the 6 o'clock position in the subareolar region. Gastrointestinal: Abdomen is soft, nontender, and nondistended with positive bowel sounds. Skin: Warm and dry. Extremities: No cyanosis, clubbing, or edema. Radial and pedal pulses intact. Neurological: Alert. Cranial nerves 2-12 are grossly intact. No gross focal deficits to casual conversation. Psychiatric: Pleasant and cooperative with normal mood and affect. Judgment and insight intact. Const: General: comfortable DS: Data Data Completed and Pending Labs on day of discharge: Labs from last 24 hours 07/05/24 07/05/24 07/05/24 14:12 08:06 06:45 WBC 7.2 RBC 4.22 Hgb 12.4 Hct 38.3 MCV 90.8 MCH 29.4 MCHC 32.4 RDW 12.4 Plt Count 278 292 MPV 10.4 10.4 PT 12.7 INR 0.9 APTT 23.9 Sodium 138 Potassium 4.4 Chloride 109 H Carbon Dioxide 24 Anion Gap 5 BUN 13 Creatinine 0.70 Estim Creat Clear Calc 93 Estimated GFR > 60 Glucose 112 H Calcium 9.6 C-Reactive Protein 1.0 Total T3 Influenza A (RT-PCR) Positive A Influenza B (RT-PCR) Negative RSV (RT-PCR) Negative SARS-CoV-2 RNA (RT-PCR) Negative 07/04/24 06:06 WBC RBC Hgb Hct MCV MCH MCHC RDW Plt Count MPV PT INR APTT Sodium Potassium Chloride Carbon Dioxide Anion Gap BUN Creatinine Estim Creat Clear Calc Estimated GFR Glucose Calcium C-Reactive Protein Total T3 1.25 Influenza A (RT-PCR) Influenza B (RT-PCR) RSV (RT-PCR) SARS-CoV-2 RNA (RT-PCR) Discharge Plan Discharge Attending physician on discharge: Mateus Power Consulting providers: Clemente Link Discharging Clinician: Mariana Tompkins Patient Disposition: Home, Self-Care Activity: no shower Diet: as tolerated and diabetic Discharge Instructions: please follow surgery instructions: take bactrum and follow-up with Dr. Link in the office on 07/09/24 for re-evaluation and possible repeat aspiration. I will send few norco for you if needed for sever pain. You were tested positive for Flu a. IT is viral disease- so no antibiotics are needed. At times, antivirals can be prescribed but for the most part- treatment is supportive. Fluids, tylenol and rest. Patient Instructions: Antibiotic Form Patient Language: Botswanan Stand Alone Forms: General Discharge Information Follow-up/Referrals: Diane,AARTI Scherer [Primary Care Provider] - 1 Week Clemente Link MD [Physician] - 07/09/24 Discharge Medications: New hydrocodone-acetaminophen 5-325 mg Tablet 1 tablet PO Q6H PRN (Reason: Pain Rated 4-6) Qty: 6 0RF sulfamethoxazole-trimethoprim 800-160 mg Tablet 2 tab PO Q12HR Qty: 13 0RF Continued metformin 500 mg tablet 500 mg PO DAILY atorvastatin 80 mg tablet 80 mg PO DAILY metoprolol tartrate 100 mg tablet 100 mg PO Q12H amlodipine 10 mg tablet 10 mg PO DAILY lisinopril 40 mg tablet 40 mg PO DAILY levothyroxine 175 mcg tablet 175 mcg PO DAILY tizanidine 4 mg tablet 4 mg PO Q6H PRN (Reason: restless leg(s)) acetaminophen [Tylenol] 325 mg capsule 650 mg PO Q4H PRN (Reason: pain) Discontinued doxycycline hyclate 100 mg capsule 100 mg PO BID Qty: 20 0RF Date of admission: 07/03/24 21:41 Primary Care Provider: KarenNiesha Admitting Provider: Toño Poon Attending physician on admission: Toño Poon Condition: Stable Quality VTE Prophylaxis VTE prophylaxis: mechanical ordered Hospitalist MIPS Heart Failure (Exclusion) Patient has history of Heart Transplant or Left Ventricular Assistive Device?: No IF YES, STOP HERE Heart Failure (Qualifier) Patient has current or prior documentation of LVEF less than or equal to 40%, or mod/servere depressed LVSF?: No IF NO, STOP HERE
== END 2024-07-05 15:35 | disposition home or self-care (01) ==
LOC: ANHED 07-04 00:01 → ANH3MEDSUR 07-05 09:20
PROVIDERS: Nurse Practitioner; Physician Assistant; Surgery; Admitting Provider Internal Medicine; Emergency Provider Physician Assistant; PCP Physician Assistant; Visit Provider General Practice
DX: N61.1 Abscess of the breast and nipple (principal); R05.9 Cough, unspecified; I10 Essential (primary) hypertension; R73.03 Prediabetes; E78.5 Hyperlipidemia, unspecified; J44.9 Chronic obstructive pulmonary disease, unspecified; G47.33 Obstructive sleep apnea (adult) (pediatric); E03.9 Hypothyroidism, unspecified; F90.9 Attention-deficit hyperactivity disorder, unspecified type; T78.40XA Allergy, unspecified, initial encounter; T36.8X5A Adverse effect of other systemic antibiotics, initial encounter; Z88.0 Allergy status to penicillin; Z20.822 Contact with and (suspected) exposure to COVID-19; Z79.84 Long term (current) use of oral hypoglycemic drugs; Z79.899 Other long term (current) drug therapy; Z98.890 Other specified postprocedural states
CPT/HCPCS: 10060; 10160; 36415; 71045; 76642; 80048; 80053; 82565; 83036; 84439; 84443; 84480; 85025; 85027; 85049; 85610; 85652; 85730; 86140; 87637; 96365; 96366; 96367; 96374; 96375; 96376; 99285; A9270; G0378; J1171; J3370; J7030

== ENCOUNTER 2024-08-30 10:16 | Outpatient (CLI) | payer BC, SELFPAY ==
[2024-08-30 11:54] LABS: MRSA (PCR) NOT DETECTED (NOT DETECTE)
== END 2024-08-30 10:17 | disposition home or self-care (01) ==
LOC: ANHLAB 10:17
PROVIDERS: PCP Physician Assistant; Visit Provider Surgery
DX: N61.1 Abscess of the breast and nipple (principal)
CPT/HCPCS: 87641

== ENCOUNTER 2024-08-31 07:40 | Outpatient (CLI) | payer BC, SELFPAY | END 2024-08-31 07:41 | disposition home or self-care (01) | PROVIDERS: PCP Physician Assistant; Visit Provider Surgery | DX: N61.1 Abscess of the breast and nipple (principal) | CPT/HCPCS: 76642 ==

== ENCOUNTER 2024-10-29 08:55 | Outpatient (CLI) | payer BC, SELFPAY ==
--- NOTE | 2024-10-29 08:30 | ECG_ITS ---
Test Date: 2024-10-29 09:15:37 Measurements Intervals Plover Rate: 57 P: 51 DC: 152 QRS: 20 QRSD: 93 T: 16 QT: 390 QTc: 383 Interpretive Statements SINUS BRADYCARDIA BASELINE ARTIFACT- I, III, AVR, AVL, AVF, V4-V6 BORDERLINE ECG No previous ECG available for comparison Electronically Signed On 10-29-2024 09:20:00 CDT by Jamie Glover D.O.
[2024-10-29 09:26] LABS: Basophils Absolute Auto 0.1 K/mm3 (0.0-0.1); Basophils Percent Auto 1.8 % (0.2-1.2); Eosinophils Absolute Auto 0.4 K/mm3 (0-0.3); Hematocrit 36.7 % (37.0-47.0); Hemoglobin 11.5 g/dL (12.0-15.0); Immature Granulocyte Absolute 0.01 K/mm3 (0.00-0.031); Immature Granulocyte Percent A 0.1 % (0-0.5); Lymphocytes Absolute Auto 2.18 K/mm3 (0.9-3.2); Lymphocytes Percent Auto 32.5 % (18.3-44.2); Mean Corpuscular HGB Conc 31.3 g/dl (32-36); Mean Corpuscular Hemoglobin 29.3 pg (26-34); Mean Corpuscular Volume 93.4 fl (80-100); Mean Platelet Volume 10.5 fl (7.4-10.4); Monocytes Absolute Auto 0.6 K/mm3 (0.1-0.6); Monocytes Percent Auto 9.4 % (2.6-8.5); Neutrophils Absolute Auto 3.4 K/mm3 (1.3-6.7); Neutrophils Percent Auto 50.2 % (45.5-73.1); Platelet Count Result 280 k/mm3 (150-375); Red Blood Count 3.93 M/mm3 (4.2-5.4); Red Cell Distribution Width 13.1 % (11.5-14.5); White Blood Count 6.7 K/mm3 (4.5-10.0)
--- OUTSIDE RECORDS SUMMARY | 2024-10-29 09:31 | XMS_ITS | Clinical Summary ---
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 Recording Studio Setup Worker Name Role Phone Niesha Contreras PA-C Primary Care Provider [phone]- [phone] Allergies Active Allergy Reactions Criticality Noted Date [...] 66 10/05/2023 4:10 PM CDT Temperature 36.1 C (96.9 F) 10/05/2023 4:10 PM CDT Respiratory Rate 18 10/05/2023 4:10 PM CDT [...] 5 Years 2010 Cervical Cancer Screening wi th HPV 2010 Mammogram Screening 2020 COVID-19 Vaccine (3 - 2023-2 5 season) 2024 01/09/2021, 12/12/2020 HPV Vaccines Aged Out No longer eligi ble based on patient's age to complete this topic Meningococcal B Vaccine Aged Out No l onger eligible based on patient's age to complete this topic Meningococcal Vaccine Aged Out No lashae paula eligible based on patient's age to complete this topic Pneumococcal Vaccine: Pediatrics (0 to 5 Years) and At-Risk Patients (6 to 49 Years) Aged Out No longer eligible b ased on patient's age to complete this topic RSV Immunizations Under 20 Months Aged Out No longer eligible b ased on patient's age to complete this topic Insurance [address] [place], [place] [id number] [place] [address] Care Teams Recording Studio Setup Worker Relationship Specialty Start Date End Date Niesha Contreras PA-C [address] [place] [id number] 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
--- OUTSIDE RECORDS SUMMARY | 2024-10-29 09:31 | XMS_ITS | Data Portability ---
Author Organization [place] - [facility] [employer], Main Office Address [address] [place] [address] Assessment No assessment recorded. Plan of Treatment Reminders Order Date Submit Date Provider Last Modified By Organization Details Last Modified Time Details Appointments None recorded. Lab hemoglobin + hematocrit, blood 2022 023 [email or web address] [facility] (Lab), [address] [place], [address], 3 09:47:02 magnesium, serum or plasma 2022 023 [email or web address] [facility] (Lab), [address] [place], [address], 3 09:47:02 vitamin B12, serum 2022 023 [email or web address] [facility] (Lab), [address] [place], [address], 3 09:47:02 bun (blood urea nitrogen), serum or plasma 2022 023 [email or web address] 25 [facility] (Lab), [address] [place], [address], 3 09:47:02 creatinine, serum or plasma 2022 023 [email or web address] 25 [facility] (Lab), [address] [place], [address], 3 09:47:03 folate, RBC 2022 023 [email or web address] 25 [facility] (Lab), [address] [place], [address], 3 09:47:03 iron + total iron-bindin g capacity (TIBC), serum 2022 023 [email or web address] 25 [facility] (Lab), [address] [place], [address], 3 09:47:03 vitamin E, serum 2022 023 [email or web address] [facility] (Lab), [address] [place], [address], 3 09:47:03 Referral None recorded. Procedures None recorded. Surgeries None recorded. Imaging None recorded. Medication Orders None recorded. Patient TargetsNo targets recorded. Patient InstructionsNo instructions recorded. Reason for Referral None Reported. Results Created Date Observation Date Name Description Value Unit Range Abnormal Flag Note LastModifiedBy Organization Detail LastModifiedTime 02/10/20 22 02/04/2022 home sleep study No observ ation record ed. [id number] [facility] [address] [place], [address], 2022 16:43:25 02/10/20 22 02/04/2022 home sleep study No observ ation record ed. [id number] [facility] Add On Lab Orders [address] [place], [address], 2022 16:43:25 04/07/20 22 04/05/2022 polys omnog izaiah, titra tion study No observ ation record ed. [id number] Not Available 2022 16:43:25 04/12/20 22 04/05/2022 polys omnog izaiah, split night No observ ation record ed. [id number] [facility] [address] [place], [address], 2022 16:43:25 Result Notes None recorded. Problems Name Problem SNOMED Code Status Onset Date Resolution Date Notes Provider Name and Address Organization Details Recorded Time Nocturia 269066994 Active 023 Not Available [facility] 3 16:42:30 Periodic limb movement disorder 286209342 Active 023 Not Available [facility] 3 16:42:30 Sleep apnea 39162635 Active 022 Not Available [facility] 3 16:42:30 Fatigue 85091642 Active 023 Not Available [facility] 3 16:42:30 Notes:Medical History: Anxie ty/Depression Early REM onset Obesity with very severe OSAHS, AHI = 86, 02/04/22 Hypertension Hyperlipidemia T2DM PLMD Problem Notes None recorded. Procedures Surgical History None recorded. Imaging Results Imaging Date Name Status LastModified by [facility] Details LastModified Time 04/05/2022 polysomnogram, titration study completed [id number] Information not available 2022 16:43:25 04/05/2022 polysomnogram, split night completed [id number] [facility] [address] [place], [address], 2022 16:43:25 02/04/2022 home sleep study completed [id number] [facility] [address] [place], [address], 2022 16:43:25 02/04/2022 home sleep study completed [id number] [facility] Add On Lab Orders [address] [place], [address], 2022 16:43:25 Procedure Notes None recorded. Medical [...] % 97 % 66 /min 97.6 [degF] 959432. 61 g 122 mm[Hg] 68 mm[Hg] Not Available [facility] 3 16:42:19 Date Recorded Heart rate Oxygen saturation Oxygen saturation in Arterial blood by Pulse oximetry Body temperature Body weight Systolic blood pressure Diastolic blood pressure Provider Name and Address Organization Details Last Updated DateTime 2 66 /min 95 % 95 % 97.3 [degF] 08812.7 3 g 110 mm[Hg] 60 mm[Hg] Not Available [facility] 3 16:42:19 Date Recorded Body height Body temperature Heart rate Oxygen saturation Oxygen saturation in Arterial blood by Pulse oximetry Systolic blood pressure Diastolic blood pressure Provider Name and Address Organization Details Last Updated DateTime 3 154.94 cm 98.1 [degF] 62 /min 97 % 97 % 102 mm[Hg] 60 mm[Hg] Silvia Boyer MA [facility] [employer] [facility] 3 11:35:08 Date Recorded Body height Body temperature Provider N kodi and Address Organization Details Last Updated DateTime 05/16/2023 154.94 cm 97.9 [degF] Claudia Abreu MA [facility] [employer] [facility] 05/16/2023 09:58:49 Date Recorded Body weight Heart rate Oxygen saturation Oxygen saturation in Arterial blood by Pulse oximetry Systolic blood pressure Diastolic blood pressure Provider Name and Address Organization Details Last Updated DateTime 3 26571.2 1 g 67 /min 97 % 97 % 118 mm[Hg] 68 mm[Hg] Heather Alejandro RN [place] [facility] [place] [email or web address] 3 10:03:26 Social History None recorded. Functional Status None recorded. Mental Status None recorded. Family History Nothing Reported. Medical History No medical history recorded. Gynecological HistoryNo gynecological history recorded. Obstetrics History GPAL:G 0 P 0 0 0 0 Past Encounters Encounter ID Performer Location Encounter Start Date Encounter Closed Date Diagnosis/Indication Diagnosis SNOMED-CT Code Diagnosis ICD10 Code Diagnosis Note [id number] [facility] [place] [address] [place] [address] 11/02/2021 00:00:00 11/02/2021 16:46:47 [id number] [facility] [place] [address] [place] [address] 08/23/2022 00:00:00 08/23/2022 12:35:25 [id number] Cyndy Susana, BRAID MAKER- [facility] [place] [address] [place] [address] 11/23/2022 11:26:00 11/23/2022 11:51:01 Periodic limb movement disorder 302040152 G47.61 PLMI 35 in studyArous al index 1[facility] Sleep [facility]nea 66657441 G47 .30 Home study completed 02/2022 with AHI 86Titrated 04/05/22 in lab with sleep onset = 2.5 minutes, REM onset = 39 minutesBes t pressure obtained and oxygen saturation maintained 91% or higherMach ine set up 06/30/22Do wnload today with 97% use greater than 4 hours.She is on PAP 13 cm H2OAHI is 1.6OSA is well correctedE ncouraged 100% compliance with all sleepFollo w with PCM for labsAdvise d good sleep habits and patterns:- Set a goal for at least 7 to 8 hours of sleep time per day.-Use the bed mainly for sleep and to go to bed only when tired. If unable to fall asleep after 30 minutes, patient should get out of bed but should not engage in any activity that requires sustained mental alertness. -Maintain a regular bedtime and wake-up time even on weekends or days off of work.-Avoi d excessive naps during the daytime. If a nap is necessary, limit it to no more than 30 minutes.-M inimize environmen celio noise, bright lights, and extremes in bedroom temperatur e.-Avoid alcohol, caffeinate d beverages, and nicotine products for at least 6 hours prior to bedtime.-A void strenuous exercise and large meals for at least 4 hours prior to bedtime.Di scussed reportable signs and symptomsRT C in 6 months, PRN for concerns Fatigue 40948633 R53.83 Significan tly improved with PAP use Body mass index 40+ - severely obese 710604493 Z68.44 Discussed weight management .Healthy well balanced meals.Incr ease exercise, ideally 30 minutes most days of the week. [id number] Cyndy Meza, [facility] [place] [address] [place] [address] 05/16/2023 09:57:30 05/16/2023 11:17:30 Sleep apnea 14217053 G47.30 Home study completed 02/2022 with AHI 86Titrated 04/05/22 in lab with sleep onset = 2.5 minutes, REM onset = 39 minutesBes t pressure obtained and oxygen saturation maintained 91% or higherMach ine set up 06/30/22Do wnload today with 97% use greater than 4 hours.She is on PAP 13 cm H2OAHI is 1.6OSA is well correctedE ncouraged 100% compliance with all sleepFollo w with PCM for labsAdvise d good sleep habits and patterns:- Set a goal for at least 7 to 8 hours of sleep time per day.-Use the bed mainly for sleep and to go to bed only when tired. If unable to fall asleep after 30 minutes, patient should get out of bed but should not engage in any activity that requires sustained mental alertness. -Maintain a regular bedtime and wake-up time even on weekends or days off of work.-Avoi d excessive naps during the daytime. If a nap is necessary, limit it to no more than 30 minutes.-M inimize environmen celio noise, bright lights, and extremes in bedroom temperatur e.-Avoid alcohol, caffeinate d beverages, and nicotine products for at least 6 hours prior to bedtime.-A void strenuous exercise and large meals for at least 4 hours prior to bedtime.Di scussed reportable signs and symptomsSh e is aware of supply cleaning and reordering She should follow up in one year Periodic l imb movement disorder 252785264 G47.61 PLMI 35 in studyArous al index 1She has no complaints R/T restless sleep Health Concerns Section Related Observation LastModified by Organization Detai ls LastModified Time None Recorded Concern Status LastModified by Organization Details LastModified Time None Recorded Advance Directives Directive None Recorded Payers Encounter Date Sequence Insurance Name Policy Number Policy Lawson Covered Member ID Lawson Member ID Guarantor Name 11/23/2022 1 [facility] (MEDICAID REPLACEMENT - HMO) [id number] Joanna Doherty [id number] Joanna Doherty 05/16/2023 1 [facility] (MEDICAID REPLACEMENT - HMO) [id number] Joanna Doherty [id number] Joanna Doherty Notes Date Note Type [...] titration study.She has never gotten this Cyndy Meza, [employer]-[facility] [address] [facility], [address], [place], [address], [facility] [employer] 11/23/2022 13:39:11 05/16/2023 text/html Ms Doherty present [...] than what they will replace. Cyndy Meza, [facility] [address] [facility], [facility] [address] [place], [address], [facility] - [facility] 05/16/2023 11:08:29 OBGyn Episode No OBEpisode recorded.
[2024-10-29 09:35] LABS: Anion Gap 7 mmol/L (4-12); Blood Urea Nitrogen 15 mg/dL (7-17); Calcium 9.2 mg/dL (8.4-10.2); Carbon Dioxide 26 mmol/L (22-30); Chloride 107 mmol/L (98-107); Estimated Glomerular Filt Rate > 60; Glucose 117 mg/dL (65-110); Potassium 4.9 mmol/L (3.4-5.0); Sodium 140 mmol/L (137-145)
== END 2024-10-29 08:56 | disposition home or self-care (01) ==
LOC: ANHSURGERY 08:59
PROVIDERS: Anesthesiology; PCP Physician Assistant; Visit Provider Surgery
DX: R94.31 Abnormal electrocardiogram [ECG] [EKG] (principal); R73.03 Prediabetes; N61.0 Mastitis without abscess; I10 Essential (primary) hypertension
CPT/HCPCS: 36415; 80048; 85025; 93005

== ENCOUNTER 2024-11-07 00:56 | Day surgery (SDC) | payer BC, SELFPAY ==
[2024-10-26 10:22] VITALS: BMI 40.5
--- NOTE | 2024-10-26 10:32 | PC.NURSE ---
Report to the Outpatient Waiting Room, entrance under the green pavilion located off [facility], at time __0630___ on date ___11/07/24____. Planned Procedure Time: ____829____.? Time changes happen often and if your time is changed the preop area will call you the afternoon before. - You and your visitor will be asked to self-screen and do not enter if you have any COVID symptoms. Please call surgeon if you need to reschedule. - A mask is optional within the hospital at this time. Patients may have clear liquids (water, carbonated beverages, clear teas, apple juice) until 3 hours prior to surgery with a maximum of 20 ounces. - No food from midnight until time of surgery and no smoking, or chewing tobacco (or any form of nicotine). No chewing gum, candy or mints. Take only the following medications with a SIP of water on the morning of surgery: ___Albuterol if needed, amlodipine, levothyroxine, metoprolol__ DO NOT STOP ANY OF YOUR OTHER PRESCRIPTION MEDICATIONS PRIOR TO SURGERY EXCEPT THE FOLLOWING Hold all vitamins and supplements for 3 days per anesthesiologist. Medications to discontinue per physician please HOLD lisinopril and metformin the morning of surgery Please no make-up, nail bulgarian, hairspray, perfume, deodorant, or body powder the day of surgery.? No jewelry (including any body piercings) or valuables the day of surgery, leave them at home.? Please take a shower or bath the night before, or the morning of, surgery with an antibacterial soap.? Wear comfortable, loose fitting clothing.? - Jewelry must be removed prior to entering the operating room.? Rings and piercings that are not removed may be cut off. - The hospital will not accept responsibility for valuables.? - Please leave all valuables, including medications, at home the day of surgery. If you are going home after surgery, a licensed ems driver must drive you home.? - NO public transportation without another adult if you receive anesthesia. - We recommend that an adult stay with you for 24 hours following discharge. - We also recommend that you do not drive, make important decision, drink alcoholic beverages, or take any drugs that were not prescribed by your health care provider for at least 24 hours after your discharge time. Follow any additional instructions given to you from your surgeon. Telephone instructions given to ___Heather__and asked if any additional questions and then verbalized understanding. Patient advised to call surgeon office or pre surgery nurse liaison [phone] if any additional questions.
--- NOTE | 2024-11-06 16:23 | P.SS_ITS ---
Same Day Admit/Disch: HPI History of Present Illness Chief complaint: Mastitis Left Breast Narrative: Joanna Doherty is a 44 year old female who has had repeated episodes of left breast pain and small abscesses either under or around the areola. These small abscesses have been aspirated, incised and drained, treated with multiple different antibiotics but managed to recur at least 3 times since June of 2024. Currently, the inflammatory condition in the medial areolar aspect of the left breast has been better. She has not had to have any abscesses drained in over a month. She is taken to surgery now as an outpatient for subareolar excision of left breast mastitis to prevent further recurrences. 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 Code status: Full code. Smoking packs per day: 1 Smoking cigarettes per day: 20.0 Years smoked: 20 Smoking pack-years: 20.00 Smoking status: Never smoker Smoking end date: 07/04/20 Alcohol intake: former Substance use: never Substance use type: does not use Other substance usage details: smoke marijuana on occasions - recreational Do You Feel Safe in your Home?: Yes Lack of Transportation: No Lack of Food: Never True Current Housing: I Have Housing Concerned About Future Housing: No Difficulty Paying Gas/Electric Bills: No Difficulty Paying for Meds: No Currently Unemployed: No Education: High School Diploma/GED Difficulty w/ Childcare or Family Care: No Additional living arrangements comments: Lives with spouse in [place]. 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 Gender identity (if verbalized by the patient): Female Sexual Orientation (if Verbalized by the Patient): Lesbian, Jordan, or Homosexual Spiritual care concerns: No Same Day Admit/Disch: Med Pre-admit Medications Home Medications ?Medication ?Instructions ?Recorded ?Confirmed ?Type amlodipine 10 mg tablet 10 mg PO DAILY 07/28/21 11/07/24 History lisinopril 40 mg tablet 40 mg PO DAILY 07/28/21 11/07/24 History metformin 500 mg tablet 500 mg PO DAILY 07/28/21 11/07/24 History metoprolol tartrate 100 mg tablet 100 mg PO Q12H 07/28/21 11/07/24 History tizanidine 4 mg tablet 4 mg PO Q6H PRN restless leg(s) 12/29/22 10/26/24 History acetaminophen 325 mg capsule 650 mg PO Q4H PRN pain 07/04/24 10/26/24 History (Tylenol) albuterol sulfate 90 mcg/actuation 2 puff inhalation Q6H PRN 07/10/24 10/26/24 History aerosol inhaler shortness of breath or wheezing levothyroxine 175 mcg tablet 175 mcg PO DAILY 07/10/24 11/07/24 History ketorolac 10 mg tablet 10 mg PO Q6H 4 days #16 tabs 11/07/24 Rx oxycodone-acetaminophen 5 mg-325 0.5 - 1 tablet PO Q4H PRN pain #10 11/07/24 Rx mg tablet (Percocet) tabs Review of Systems Review of Systems All systems reviewed & are unremarkable except as noted in HPI and below (HPI) Exam Const: General: comfortable, no acute distress, alert and awake HENMT: Head: normocephalic and atraumatic Mouth: Yes Normal oral and palatal mucosa present Eyes: Conjunctivae: conjunctivae normal Pupils: Equal, round and reactive pupils present EOM: EOMs intact bilaterally Neck: Neck: normal visual inspection, no lymphadenopathy and nontender Chest: Breast/axilla inspection: normal inspection of the axillae, abnormal inspection of the breast (Medial areola left breast shows scarring from different abscesses. ) and Other (No current breast abscesses) Breast/axilla palpation: no axillary lymphadenopathy and abnormal palpation of the breast (Medial areola left breast shows scarring, otherwise, both breasts negative) Resp: Effort & Inspection: normal respiratory effort Auscultation: clear to auscultation bilaterally Cardio: Rate: regular rate Rhythm: regular rhythm Heart sounds: no gallops, no murmurs and no rubs GI: Inspection: non-distended GI Palp: Yes Soft to palpation, No Tenderness to palpation present (GI), No Hepatomegaly present and No Splenomegaly present Skin: Lesions: no lesions Rashes: no rashes Neuro: General: no focal motor deficits and CN's II-XI intact bilaterally Cranial nerves: Yes Equal, round and reactive pupils present, Yes Bilaterally intact EOM present, Yes facial symmetry and Yes Midline tongue present Speech: normal speech Motor exam (neuro): 5/5 motor strength present throughout and Motor abnormalities not present Extrem: General: no clubbing, cyanosis or edema and edema Psych: Affect: normal affect Thought process: Normal thought process present Insight: Good insight present (Psych) DS: Summary Time Spent with Patient Time attestation: Total time spent providing and/or coordinating discharge services: DS: Admitting Diagnosis Discharge Date 11/07/2024 Admitting Diagnosis * Mastitis with recurrent abscesses medial aspect left areola-discussed this with the patient. 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 The procedure, risks, benefits, and alternatives have been discussed. All questions were answered, she understands and agrees to go ahead. * Former smoker * Essential hypertension DS: Discharge Diagnosis Discharge Diagnosis (1) Mastitis: Code(s): N61.0 - Mastitis without abscess Status: Chronic Assessment and Plan: Left breast, medial areola, excised with surgery done 11/07/2024 (2) Left breast abscess: Code(s): N61.1 - Abscess of the breast and nipple Status: Chronic Assessment and Plan: Recurrent with mastitis, not present at this time Discharge Plan Discharge Patient Disposition: Home Discharge Instructions: 1.)Keep wound clean and dry. 2.)No vigorous activity or carrying with affected arm. May use arm to comb hair, eat, write, etc. 3.)Do not apply creams or ointments unless directed to do so by your surgeon. 4.)Ambulate (walk) for exercise at least 3 times per day. 5.)Contact your surgeon?s office if you have excessive and persistent pain, swelling, bleeding, or drainage through the dressing, redness or red streaks around the wound, heat or warmth at the site of the incision, or fever of more than 101 degrees. 6.)Resume all home medications. Patient to be given pain medication prescription prior to discharge if needed. 7.)Please allow 5 business days for biopsy results. Dr. Link/Dr. Martinez?s office will call with results. 8.)Nutrition: Start out by drinking fluids and increase your diet as tolerated. If you experience nausea, try dry toast and crackers and 7-UP. If nausea or vomiting persists, contact your surgeon?s office. 9.)No alcohol while taking your narcotic pain medication. No driving for 24 hours or if you are taking your narcotic pain medication. Patient Language: Palestinian Stand Alone Forms: General Discharge Instructions Follow-up/Referrals: Clemente Link MD [Physician] - 3 Weeks Discharge Medications: New ketorolac 10 mg tablet 10 mg PO Q6H 4 Days Qty: 16 0RF oxycodone-acetaminophen [Percocet] 5-325 mg tablet 0.5 - 1 tablet PO Q4H PRN (Reason: pain) Qty: 10 0RF Continued metformin 500 mg tablet 500 mg PO DAILY metoprolol tartrate 100 mg tablet 100 mg PO Q12H amlodipine 10 mg tablet 10 mg PO DAILY lisinopril 40 mg tablet 40 mg PO DAILY tizanidine 4 mg tablet 4 mg PO Q6H PRN (Reason: restless leg(s)) acetaminophen [Tylenol] 325 mg capsule 650 mg PO Q4H PRN (Reason: pain) albuterol sulfate 90 mcg/actuation HFA aerosol inhaler 2 puff INHALATION Q6H PRN (Reason: shortness of breath or wheezing) levothyroxine 175 mcg tablet 175 mcg PO DAILY
--- OUTSIDE RECORDS SUMMARY | 2024-11-07 00:59 | XMS_ITS | Clinical Summary ---
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
--- OUTSIDE RECORDS SUMMARY | 2024-11-07 00:59 | XMS_ITS | Data Portability ---
Author Organization MD - [facility], Main Office Address [address] [place] [address] Assessment No assessment recorded. Plan of Treatment Reminders Order Date Submit Date Provider Last Modified By Organization Details Last Modified Time Details Appointments None recorded. Lab hemoglobin + hematocrit, blood 2022 023 [email or web address] [facility] (Lab), [address] [place], [address], 3 09:47:02 magnesium, serum or plasma 2022 023 [email or web address] [facility] (Lab), [address] [place], [address], 3 09:47:02 vitamin B12, serum 2022 023 [email or web address] [facility] (Lab), [address] [place], [address], 3 09:47:02 bun (blood urea nitrogen), serum or plasma 2022 023 [email or web address] [facility] (Lab), [address] [place], [address], 3 09:47:02 creatinine, serum or plasma 2022 023 [email or web address] [facility] (Lab), [address] [place], [address], 3 09:47:03 folate, RBC 2022 023 [email or web address] [facility] (Lab), [address] [place], [address], 3 09:47:03 iron + total iron-bindin g capacity (TIBC), serum 2022 023 [email or web address] [facility] (Lab), [address] [place], [address], 3 09:47:03 vitamin E, serum 2022 023 [email or web address] [facility] (Lab), [address] [place], [address], 3 09:47:03 Referral None recorded. Procedures None recorded. Surgeries None recorded. Imaging None recorded. Medication Orders None recorded. Patient TargetsNo targets recorded. Patient InstructionsNo instructions recorded. Reason for Referral None Reported. Results Created Date Observation Date Name Description Value Unit Range Abnormal Flag Note LastModifiedBy Organization Detail LastModifiedTime 02/10/20 22 02/04/2022 home sleep study No observ ation record ed. [id number] [facility] [address] [place], [address], 2022 16:43:25 02/10/20 22 02/04/2022 home sleep study No observ ation record ed. [id number] [facility] Add On Lab Orders [address] [place], [address], 2022 16:43:25 04/07/20 22 04/05/2022 polys omnog izaiah, titra tion study No observ ation record ed. [id number] Not Available 2022 16:43:25 04/12/20 22 04/05/2022 polys omnog izaiah, split night No observ ation record ed. [id number] [facility] [address] [place], [address], 2022 16:43:25 Result Notes None recorded. Problems Name Problem SNOMED Code Status Onset Date Resolution Date Notes Provider Name and Address Organization Details Recorded Time Nocturia 934883943 Active 023 Not Available [facility] 3 16:42:30 Periodic limb movement disorder 375741196 Active 023 Not Available [facility] 3 16:42:30 Sleep apnea 61031421 Active 022 Not Available [facility] 3 16:42:30 Fatigue 46471673 Active 023 Not Available [facility] 3 16:42:30 Notes:Medical History: Anxie ty/Depression Early REM onset Obesity with very severe OSAHS, AHI = 86, 02/04/22 Hypertension Hyperlipidemia T2DM PLMD Problem Notes None recorded. Procedures Surgical History None recorded. Imaging Results Imaging Date Name Status LastModified by [facility]iz [facility] Details LastModified Time 04/05/2022 polysomnogram, titration study completed [id number] Information not available 2022 16:43:25 04/05/2022 polysomnogram, split night completed [id number] [facility] [address] [place], [address], 2022 16:43:25 02/04/2022 home sleep study completed [id number] [facility] [address] [place], [address], 2022 16:43:25 02/04/2022 home sleep study completed [id number] [facility] Add On Lab Orders [address] [place], [address], 2022 16:43:25 Procedure Notes None recorded. Medical [...] % 97 % 66 /min 97.6 [degF] 005824. 61 g 122 mm[Hg] 68 mm[Hg] Not Available [facility] 3 16:42:19 Date Recorded Heart rate Oxygen saturation Oxygen saturation in Arterial blood by Pulse oximetry Body temperature Body weight Systolic blood pressure Diastolic blood pressure Provider Name and Address Organization Details Last Updated DateTime 2 66 /min 95 % 95 % 97.3 [degF] 31853.7 3 g 110 mm[Hg] 60 mm[Hg] Not Available [facility] 3 16:42:19 Date Recorded Body height Body temperature Heart rate Oxygen saturation Oxygen saturation in Arterial blood by Pulse oximetry Systolic blood pressure Diastolic blood pressure Provider Name and Address Organization Details Last Updated DateTime 3 154.94 cm 98.1 [degF] 62 /min 97 % 97 % 102 mm[Hg] 60 mm[Hg] Silvia Boyer [facility] [employer] [facility] 3 11:35:08 Date Recorded Body height Body temperature Provider N kodi and Address Organization Details Last Updated DateTime 05/16/2023 154.94 cm 97.9 [degF] Claudia Abreu [facility] [employer] 05/16/2023 09:58:49 Date Recorded Body weight Heart rate Oxygen saturation Oxygen saturation in Arterial blood by Pulse oximetry Systolic blood pressure Diastolic blood pressure Provider Name and Address Organization Details Last Updated DateTime 3 17456.2 1 g 67 /min 97 % 97 % 118 mm[Hg] 68 mm[Hg] Heather Alejandro RN [place] [facility] 3 10:03:26 Social History None recorded. Functional Status None recorded. Mental Status None recorded. Family History Nothing Reported. Medical History No medical history recorded. Gynecological HistoryNo gynecological history recorded. Obstetrics History GPAL:G 0 P 0 0 0 0 Past Encounters Encounter ID Performer Location Encounter Start Date Encounter Closed Date Diagnosis/Indication Diagnosis SNOMED-CT Code Diagnosis ICD10 Code Diagnosis Note [id number] [facility] [place] [address] [place] [address] 11/02/2021 00:00:00 11/02/2021 16:46:47 [id number] [facility] [place] [address] [place] [address] 08/23/2022 00:00:00 08/23/2022 12:35:25 [id number] [facility] [place] [address] [place] [address] 11/23/2022 11:26:00 11/23/2022 11:51:01 Periodic limb movement disorder 487756251 G47.61 PLMI 35 in [facility]Arous al [facility] Sleep apnea 41935142 G47 .30 Home study completed 02/2022 with [...] in 6 months, PRN for concerns Fatigue 35150152 R53.83 Significan tly improved with PAP use Body mass index 40+ - severely obese 402589999 Z68.44 Discussed weight management .Healthy well balanced meals.Incr ease exercise, ideally 30 minutes most days of the week. [id number] Cyndy Meza, [facility] [place] [address] [place] [address] 05/16/2023 09:57:30 05/16/2023 11:17:30 Sleep apnea 10334374 G47.30 Home study completed 02/2022 with AHI [...] one year Periodic l imb movement disorder 667438710 G47.61 PLMI 35 in studyArous al index 1She has no complaints R/T restless sleep Health Concerns Section Related Observation LastModified by Organization Detai ls LastModified Time None Recorded Concern Status LastModified by Organization Details LastModified Time None Recorded Advance Directives Directive None Recorded Payers Encounter Date Sequence Insurance Name Policy Number Policy Lawson Covered Member ID Lawson Member ID Guarantor Name 11/23/2022 1 [facility] (MEDICAID REPLACEMENT - HMO) [id number] Joanna Doherty [id number] Joanna Doherty 05/16/2023 1 [facility] (MEDICAID REPLACEMENT - HMO) [id number] Joanna Doherty [id number] Joanna Doherty Notes Date Note Type [...] study.She has never gotten this Cyndy Meza, SERVER PROGRAMMER- [address] [facility], [place], [address], [place] - [place] [employer] 11/23/2022 13:39:11 05/16/2023 text/html Ms Doherty present [...] than what they will replace. Cyndy Meza, [facility]- [address] [facility], [facility] [address], [place], [address], [place] [facility] 05/16/2023 11:08:29 OBGyn Episode No OBEpisode recorded.
[2024-11-07 06:00] VITALS: BP 109/63; PULSE 73; RESP 16; TEMP 36.1; O2SAT 99
[2024-11-07 06:14] VITALS: BMI 40.3
[2024-11-07 06:35] LABS: Glucose Point of Care 126 mg/dl (65-105)
[2024-11-07] MEDS: KETOROLAC 15 MG/ML VIAL (*BKC) IV PUSH (06:36)
[2024-11-07] MEDS: ACETAMINOPHEN 500 MG TABLET 1000 MG PO (06:36)
--- NOTE | 2024-11-07 07:01 | WPDHPUPDATE1 ---
History and Physical Update Update Date/Time: 11/07/24 07:01 History and Physical has been reviewed, including an updated exam of the patient. There are NO changes in the patient's condition. Risks, benefits, and alternatives have been discussed and questions answered. Patient agrees to proceed with procedure.
--- NOTE | 2024-11-07 07:01 | WPDANESEPPF ---
Anes - Initial Pre Proc Eval Procedure: Operation Date: 11/07/24 07:30 Proposed Procedures p Subareolar Excision Left Breast Mastitis - Clemente Link MD Date/Time: 11/07/24 07:01 Surgeon: Clemente Link MD Pre Op Diagnosis: Mastitis Left Breast Patient Data Age: 44 Gender: F Height: 1.55 m Weight: 96.8 kg Allergies Allergy/AdvReac Type Severity Reaction Status Date / Time vancomycin Allergy Intermediate Rash, Verified 11/07/24 06:13 itching Penicillins Allergy Mild Unknown Verified 11/07/24 06:13 Home Medications ?Medication ?Instructions ?Recorded ?Confirmed ?Type amlodipine 10 mg tablet 10 mg PO DAILY 07/28/21 11/07/24 History lisinopril 40 mg tablet 40 mg PO DAILY 07/28/21 11/07/24 History metformin 500 mg tablet 500 mg PO DAILY 07/28/21 11/07/24 History metoprolol tartrate 100 mg tablet 100 mg PO Q12H 07/28/21 11/07/24 History tizanidine 4 mg tablet 4 mg PO Q6H PRN restless leg(s) 12/29/22 10/26/24 History acetaminophen 325 mg capsule 650 mg PO Q4H PRN pain 07/04/24 10/26/24 History (Tylenol) albuterol sulfate 90 mcg/actuation 2 puff inhalation Q6H PRN 07/10/24 10/26/24 History aerosol inhaler shortness of breath or wheezing levothyroxine 175 mcg tablet 175 mcg PO DAILY 07/10/24 11/07/24 History Laboratory Tests 11/07/24 06:32 POC Capillary Glucose 126 H mg/dl (65-105) Patient hx anesthesia problems: none Family hx anesthesia problems: none Results Review: All pre-operative results and documents have been reviewed as part of the pre-operative evaluation. 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 Code status: Full code. Smoking packs per day: 1 Smoking cigarettes per day: 20.0 Years smoked: 20 Smoking pack-years: 20.00 Smoking status: Never smoker Smoking end date: 07/04/20 Alcohol intake: former Substance use: never Substance use type: does not use Other substance usage details: smoke marijuana on occasions - recreational Do You Feel Safe in your Home?: Yes Lack of Transportation: No Lack of Food: Never True Current Housing: I Have Housing Concerned About Future Housing: No Difficulty Paying Gas/Electric Bills: No Difficulty Paying for Meds: No Currently Unemployed: No Education: High School Diploma/GED Difficulty w/ Childcare or Family Care: No Additional living arrangements comments: Lives with spouse in [place]. 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 Gender identity (if verbalized by the patient): Female Sexual Orientation (if Verbalized by the Patient): Lesbian, Jordan, or Homosexual Spiritual care concerns: No Anes - Eval Final PreProcedure Day of Procedure 11/07/24 07:01 Patient weight: morbidly obese Heart: regular rate and rhythm Lungs: decreased breath sounds Airway: Mallampati scale class II Neurological: alert and oriented Last oral intake: >/= 8 hours ASA classification: III Emergent: no Anesthetic plan: proceed Anesthesia type and monitoring: general LMA and standard monitoring Results Review: All pre-operative results and documents have been reviewed as part of the pre-operative evaluation. Informed Consent: The patient's anesthetic plan and its attendant risks and benefits were discussed with the patient/family/POA. Questions were solicited and answers provided to the satisfaction of the patient/family/POA.
[2024-11-07] MEDS: ceFAZolin 2 GM/D5W 50 ML 2 GM/50 ML BAG IVPB (07:25)
[2024-11-07] MEDS: LACTATED RINGERS 1,000 ML 30 ML IV CONT (07:34)
[2024-11-07] MEDS: BUPIVACAINE/EPINEPHRINE 0.5% 50 ML VIAL 30 ML INFILTRATE (07:41)
--- NOTE | 2024-11-07 08:13 | SUR.OPER ---
specimen x 2 sent to pathology fresh per PCT Katiana, given to Kim
[2024-11-07 08:20] VITALS: BP 126/72; PULSE 63; RESP 22; TEMP 36.4; O2SAT 98
[2024-11-07 08:30] VITALS: BP 117/67; PULSE 56; RESP 16; O2SAT 100
[2024-11-07 08:33] LABS: Glucose Point of Care 123 mg/dl (65-105)
[2024-11-07 08:45] VITALS: BP 116/58; PULSE 52; RESP 18
[2024-11-07 09:00] VITALS: BP 117/63; PULSE 50; RESP 20; O2SAT 94
[2024-11-07] MEDS: oxyCODONE HCL (*CRX) 5 MG TAB IR PO (09:32)
[2024-11-07 09:37] VITALS: BP 126/66; PULSE 54; RESP 16
--- NOTE | 2024-11-08 15:06 | W.PM.PROC2 ---
Procedure Note - Detailed Date of Procedure 11/08/24 Pre-op Diagnosis Mastitis with abscess Left Breast Post-op Diagnosis Same Procedure Performed Subareolar excision of left breast mastitis Surgeon Clemente Link MD Anesthesia General (LMA) and Local Indications Patient has had at least 3 abscesses in the medial portion of her areola in the last few months. She has continued pain but has not had any additional abscesses in the last month. She is taken to surgery now for subareolar excision to avoid further abscess formation and chronic pain. Findings Retro area older thickened chronic scar tissue. No significantly dense or abnormal breast tissue deeper than the 1st 0.5 cm under the areola although the excision extended deeper than that. Description of Procedure The patient was seen in the preoperative holding area. The area of the scarring on the left areola was marked. Left side was marked. She was then taken back to surgery. Anesthesia was introduced. The left breast was prepped and draped. The proposed incision on the medial aspect of the left areola was marked on the skin. Local was infiltrated into the skin and the underlying breast tissue. Incision was made. Careful dissection was carried out just under the area older skin. There was some scar tissue under the areola and this was thickened and somewhat fibrotic. It was not entered due to fear of causing skin necrosis. We did dissect well under the areola including the area of the nipple. Once this had been dissected off the Jaren a, the breast tissue in this area was excised as well. The dissection went about 1.5 cm deep. Cautery was used for hemostasis. Once this breast tissue was excised, I used 3 different color suture to timo its margins. These were labeled appropriately. This was sent to pathology labeled left breast mastitis. I looked again at the areola and the underlying tissues. There was some inflammatory tissue mostly under the nipple which I felt I could safely remove. We went ahead and dissected this tissue off the areola. It was much smaller than the previous tissue submitted. This was sent to pathology labeled retroareolar superficial tissue left breast tissue. Both specimens were submitted fresh. We then inspected the wound thoroughly and achieved good hemostasis with the cautery. I then used 3-0 Monocryl to suture the deep sub dermis of the areola to the dermis of the surrounding skin. 4-0 Monocryl subcuticular sutures were placed as well. The skin was then finally closed with a running 4-0 Monocryl skin suture. All looked good. The wound was dressed with Exofin surgical adhesive. Patient was then awakened and taken to recovery in good condition. Sponge and needle counts were correct x2. Estimated Blood Loss -5 Drains No Packing No Pathology Yes (Left breast mastitis, superficial retroareolar left breast tissue) Complications None Condition Stable Disposition PACU [facility] Billing Surgery - Charge Forward: Surgery Billing (Subareolar excision of left breast mastitis)
== END 2024-11-07 09:45 | disposition home or self-care (01) ==
PROVIDERS: PCP Physician Assistant; Visit Provider Surgery
PROC: (CPT 19120; principal; 2024-11-07 07:30)
DX: N61.1 Abscess of the breast and nipple (principal); N60.12 Diffuse cystic mastopathy of left breast; G89.18 Other acute postprocedural pain; I10 Essential (primary) hypertension; E03.9 Hypothyroidism, unspecified; E78.5 Hyperlipidemia, unspecified; J44.9 Chronic obstructive pulmonary disease, unspecified; R73.03 Prediabetes; G47.33 Obstructive sleep apnea (adult) (pediatric); F90.9 Attention-deficit hyperactivity disorder, unspecified type; F12.90 Cannabis use, unspecified, uncomplicated; E66.01 Morbid (severe) obesity due to excess calories; Z68.41 Body mass index [BMI] 40.0-44.9, adult; Z79.84 Long term (current) use of oral hypoglycemic drugs; Z79.51 Long term (current) use of inhaled steroids; Z79.891 Long term (current) use of opiate analgesic; Z86.79 Personal history of other diseases of the circulatory system
CPT/HCPCS: 19120; 82948; 88305; A9270; J0690; J1100; J1885; J2250; J2405; J2704; J3010; J7120

== ENCOUNTER 2024-11-15 15:37 | Emergency (ER) | payer BC, SELFPAY ==
--- NOTE | ~2024-11-15 | CT_ITS ---
CT diagnostic chest w con Ordering provider: Rico Israel MD History: 44 years Female with . breast abscess . Comparison: June 17, 2024 Technique: CT chest with IV contrast. Radiation reduction technique utilized.The dose-length product was 414.75 mGy-cm. 100 mL Omnipaque 35 0 was given IV. Findings: Soft tissue density seen in the left breast measuring 3.8 x 3.2 cm. Air bubble is seen in that area s uggestive of an abscess. Clinical correlation advised.. VISUALIZED THORACIC INLET: Normal. MEDIASTINUM: Aorta/coronary arteries: Stent graft is seen in the aortic arch and descending aorta. Aortic dissection is seen in the distal descending aorta extending to the abdominal aorta and unchang ed from previous examination. Heart/other: The heart is not enlarged. Lymph nodes: No mediastinal or hilar adenopathy. LUNGS: No pulmonary nodules or masses. No infiltrates or effusions. No pneumothorax. VISUALIZED UPPER ABDOMEN: Cholelithiasis. Fat infiltration of the liver. Otherwise, the visualized up per abdomen is normal. MUSCULOSKELETAL: Soft tissues: Abscess is seen in the left breast otherwise, The superficial soft tissues are normal. Bones: Age appropriate degenerative changes of the spine. IMPRESSION: Abscess in the left breast subareolar area. Aortic dissection unchanged from previous examination. No acute cardiopulmonary pathology. Reviewed, dictated and finalized at location A.
--- OUTSIDE RECORDS SUMMARY | 2024-11-15 15:39 | XMS_ITS | Clinical Summary ---
Author Organization [facility] Address [address] [place] [address] Care Team Providers Care Microelectronics Assembler Name Role Phone Niesha Contreras PA-C Primary Care Provider [phone]- [phone] Allergies Active Allergy Reactions Criticality Noted Date [...] to complete this topic Insurance [address] [place], [place] [id number] [place] [address] Care Teams Microelectronics Assembler Relationship Specialty Start Date End Date Niesha Contreras PA-C [address] [place] [id number] PCP - General PHYSICIAN CERTIFIED CODING SPECIALIST 10/05/23
--- OUTSIDE RECORDS SUMMARY | 2024-11-15 15:40 | XMS_ITS | Data Portability ---
Author Organization [place] - [facility] [email or web address], Main Office Address [address] [place] [address] Assessment No assessment recorded. Plan of Treatment Reminders Order Date Submit Date Provider Last Modified By Organization Details Last Modified Time Details Appointments None recorded. Lab hemoglobin + hematocrit, blood 2022 023 [email or web address] [facility] (Lab), [address] [place], [address], 3 09:47:02 magnesium, serum or plasma 2022 023 [email or web address] 25 [facility] (Lab), [address] [place], [address], 3 09:47:02 vitamin B12, serum 2022 023 [email or web address] 25 [facility] (Lab), [address] [place], [address], 3 09:47:02 bun (blood urea nitrogen), serum or plasma 2022 023 [email or web address] 25 [facility] (Lab), [address] [place], [address], 3 09:47:02 creatinine, serum or plasma 2022 023 [email or web address] 25 [facility] (Lab), [address] [place], [address], 3 09:47:03 folate, RBC 2022 023 [email or web address] 25 [facility] (Lab), [address] [place], [address], 3 09:47:03 iron + total iron-bindin g capacity (TIBC), serum 2022 023 [email or web address] 25 [facility] (Lab), [address] [place], [address], 3 09:47:03 vitamin E, serum 2022 023 [email or web address] 25 [facility] (Lab), [address] [place], [address], 3 09:47:03 Referral None recorded. Procedures None recorded. Surgeries None recorded. Imaging None recorded. Medication Orders None recorded. Patient TargetsNo targets recorded. Patient InstructionsNo instructions recorded. Reason for Referral None Reported. Results Created Date Observation Date Name Description Value Unit Range Abnormal Flag Note LastModifiedBy Organization Detail LastModifiedTime 02/10/20 22 02/04/2022 home sleep study No observ ation record ed. [id number] [facility] [address] [place], [address], 2022 16:43:25 02/10/20 22 02/04/2022 home sleep study No observ ation record ed. [id number] [facility] On [facility] Orders [address] [place], [address], 2022 16:43:25 04/07/20 22 04/05/2022 polys omnog izaiah, titra tion study No observ ation record ed. [id number] Not Available 2022 16:43:25 04/12/20 22 04/05/2022 polys omnog izaiah, split night No observ ation record ed. [id number] [facility] [address] [place], [address], 2022 16:43:25 Result Notes None recorded. Problems Name Problem SNOMED Code Status Onset Date Resolution Date Notes Provider Name and Address Organization Details Recorded Time Nocturia 255302086 Active 023 Not Available [facility] 3 16:42:30 Periodic limb movement disorder 898608228 Active 023 Not Available [facility] 3 16:42:30 Sleep apnea 22897603 Active 022 Not Available [facility] 3 16:42:30 Fatigue 35716018 Active 023 Not Available [facility] 3 16:42:30 Notes:Medical History: Anxie ty/Depression Early REM onset Obesity with very severe OSAHS, AHI = 86, 02/04/22 Hypertension Hyperlipidemia T2DM PLMD Problem Notes None recorded. Procedures Surgical History None recorded. Imaging Results Imaging Date Name Status LastModified by Organiz [facility] Details LastModified Time 04/05/2022 polysomnogram, titration study completed [id number] Information not available 2022 16:43:25 04/05/2022 polysomnogram, split night completed [id number] [facility] [address] [place], [address], 2022 16:43:25 02/04/2022 home sleep study completed [id number] [facility] [address] [place], [address], 2022 16:43:25 02/04/2022 home sleep study completed [id number] [facility] On [facility] Orders [address] [place], [address], 2022 16:43:25 Procedure Notes None recorded. Medical [...] % 97 % 66 /min 97.6 [degF] 778698. 61 g 122 mm[Hg] 68 mm[Hg] Not Available [facility] 3 16:42:19 Date Recorded Heart rate Oxygen saturation Oxygen saturation in Arterial blood by Pulse oximetry Body temperature Body weight Systolic blood pressure Diastolic blood pressure Provider Name and Address Organization Details Last Updated DateTime 2 66 /min 95 % 95 % 97.3 [degF] 48583.7 3 g 110 mm[Hg] 60 mm[Hg] Not Available [facility] 3 16:42:19 Date Recorded Body height Body temperature Heart rate Oxygen saturation Oxygen saturation in Arterial blood by Pulse oximetry Systolic blood pressure Diastolic blood pressure Provider Name and Address Organization Details Last Updated DateTime 3 154.94 cm 98.1 [degF] 62 /min 97 % 97 % 102 mm[Hg] 60 mm[Hg] Silvia Boyer MA [facility] 3 11:35:08 Date Recorded Body height Body temperature Provider N kodi and Address Organization Details Last Updated DateTime 05/16/2023 154.94 cm 97.9 [degF] Claudia Abreu MA [facility] 05/16/2023 09:58:49 Date Recorded Body weight Heart rate Oxygen saturation Oxygen saturation in Arterial blood by Pulse oximetry Systolic blood pressure Diastolic blood pressure Provider Name and Address Organization Details Last Updated DateTime 3 97996.2 1 g 67 /min 97 % 97 % 118 mm[Hg] 68 mm[Hg] Heather Alejandro RN [place] - [place] [facility] 3 10:03:26 Social History None recorded. Functional Status None recorded. Mental Status None recorded. Family History Nothing Reported. Medical History No medical history recorded. Gynecological HistoryNo gynecological history recorded. Obstetrics History GPAL:G 0 P 0 0 0 0 Past Encounters Encounter ID Performer Location Encounter Start Date Encounter Closed Date Diagnosis/Indication Diagnosis SNOMED-CT Code Diagnosis ICD10 Code Diagnosis Note [id number] [facility] [place] [facility] [place] [address] [place] [address] 11/02/2021 00:00:00 11/02/2021 16:46:47 [id number] [facility] [place] [facility] [place] [address] [place] [address] 08/23/2022 00:00:00 08/23/2022 12:35:25 [id number] [facility] [place] [address] [place] [address] 11/23/2022 11:26:00 11/23/2022 11:51:01 Periodic limb movement disorder 133459311 G47.61 PLMI 35 in [facility]Arous al [facility] Sleep apnea 63404670 G47 .30 Home study completed 02/2022 with [...] in 6 months, PRN for concerns Fatigue 50744238 R53.83 Significan tly improved with PAP use Body mass index 40+ - severely obese 141304700 Z68.44 Discussed weight management .Healthy well balanced meals.Incr ease exercise, ideally 30 minutes most days of the week. [id number] Cyndy Meza, [facility] [place] [address] [place] [address] 05/16/2023 09:57:30 05/16/2023 11:17:30 Sleep apnea 67771187 G47.30 Home study completed 02/2022 with AHI [...] one year Periodic l imb movement disorder 389483632 G47.61 PLMI 35 in studyArous al index 1She has no complaints R/T restless sleep Health Concerns Section Related Observation LastModified by Organization Detai ls LastModified Time None Recorded Concern Status LastModified by Organization Details LastModified Time None Recorded Advance Directives Directive None Recorded Payers Encounter Date Sequence Insurance Name Policy Number Policy Lawson Covered Member ID Lawson Member ID Guarantor Name 11/23/2022 1 [facility] (MEDICAID REPLACEMENT - HMO) [id number] Joanna Doherty [id number] Joanna Doherty 05/16/2023 1 [facility] (MEDICAID REPLACEMENT - HMO) [id number] Joanna Doherty [id number] Joanna Doherty Notes Date Note Type [...] study.She has never gotten this Cyndy Meza, CUSTOMER SERVICE PROFESSIONAL- [address] [facility], [place], [address], [place] - [employer] 11/23/2022 13:39:11 05/16/2023 text/html Ms Doherty present [...] than what they will replace. Cyndy Meza, CUSTOMER SERVICE PROFESSIONAL- [address] [facility], [facility] [address], [place], [address], [place] - [employer] [facility] 05/16/2023 11:08:29 OBGyn Episode No OBEpisode recorded.
[2024-11-15 15:55] VITALS: BP 132/59; PULSE 94; RESP 20; TEMP 37.1; O2SAT 98
--- OUTSIDE RECORDS SUMMARY | 2024-11-15 16:32 | XMS_ITS | Clinical Summary ---
Author Organization [facility] Address [address] [place] [address] Care Team Providers Care Textile Colorist Formulator Name Role Phone Niesha Contreras PA-C Primary Care Provider [phone]- [phone] Allergies Active Allergy Reactions Criticality Noted Date [...] to complete this topic Insurance [address] [place], [place] [phone] [place] [address] Care Teams Textile Colorist Formulator Relationship Specialty Start Date End Date Niesha Contreras PA-C [address] [place] [phone] PCP - General PHYSICIAN BULB PLANTER 10/05/23
[2024-11-15 17:26] LABS: Alanine Aminotransferase 25 U/L (6-35); Albumin Level 4.6 g/dL (3.5-5.1); Alkaline Phosphatase 82 U/L (38-126); Anion Gap 11 mmol/L (4-12); Aspartate Amino Transferase 25 U/L (14-36); Bilirubin,Total 0.5 mg/dL (0.2-1.3); Blood Urea Nitrogen 17 mg/dL (7-17); Calcium 9.8 mg/dL (8.4-10.2); Carbon Dioxide 25 mmol/L (22-30); Chloride 103 mmol/L (98-107); Estimated CRCL calculation 83 ml/min; Estimated Glomerular Filt Rate > 60; Glucose 88 mg/dL (65-110); Potassium 4.1 mmol/L (3.4-5.0); Sodium 139 mmol/L (137-145)
[2024-11-15 17:44] LABS: Hematocrit 36.3 % (37.0-47.0); Hemoglobin 11.8 g/dL (12.0-15.0); Mean Corpuscular HGB Conc 32.5 g/dl (32-36); Mean Corpuscular Hemoglobin 28.6 pg (26-34); Mean Corpuscular Volume 88.1 fl (80-100); Mean Platelet Volume 10.8 fl (7.4-10.4); Platelet Count Result 307 k/mm3 (150-375); Red Blood Count 4.12 M/mm3 (4.2-5.4); Red Cell Distribution Width 13.3 % (11.5-14.5); White Blood Count 12.2 K/mm3 (4.5-10.0)
[2024-11-15 18:11] LABS: Band Neutrophils Percent 1 % (0-6); Basophils Absolute Manual 0.12 K/mm3 (0.0-0.1); Basophils Percent Manual 1 % (0-1); Eosinophils Absolute Manual 0.24 K/mm3 (0.02-0.50); Eosinophils Percent Manual 2 % (0-4); Hypochromasia 1+; Lymphocytes Absolute Manual 1.95 K/mm3 (1.1-4.5); Monocytes Absolute Manual 0.85 K/mm3 (0.1-0.90); Monocytes Percent Manual 7 % (3-9); Neutrophils Absolute Manual 9.02 K/mm3 (1.7-7.2); Neutrophils Percent Manual 73 % (46-73); Platelet Estimate Adequate (Adequate); Schistocytes None Seen; Total Cells Counted 100
--- NOTE | 2024-11-15 20:13 | ED_ITS ---
HPI - General Adult General Chief complaint: Skin/Abscess/Foreign Body Stated complaint: Blood from left nipple-rash around surgical site Time Seen by Provider: 11/15/24 16:12 History of Present Illness HPI narrative: Patient is a 44-year-old female who presents ER with drainage from her left breast. Sudden onset pain while at work today. Noticed a bloody like substance on her hands when she got home after removing her bra. She had undergone a surgical procedure to remove some tissue due to recurrent abscess the breast 1 week ago. No fevers or chills or sweats. Has had some persistent erythema and warmth to the medial aspect of the breast. She had been on Keflex. Denies any recent trauma or injury to the breast. Had been doing well until today. Related Data Home Medications Medication Instructions Recorded Confirmed Last Taken Type amlodipine 10 mg tablet 10 mg PO DAILY 07/28/21 11/07/24 11/07/24 History lisinopril 40 mg tablet 40 mg PO DAILY 07/28/21 11/07/24 11/06/24 History metformin 500 mg tablet 500 mg PO DAILY 07/28/21 11/07/24 11/06/24 History metoprolol tartrate 100 mg tablet 100 mg PO Q12H 07/28/21 11/07/24 11/07/24 History tizanidine 4 mg tablet 4 mg PO Q6H PRN restless leg(s) 12/29/22 10/26/24 07/09/24 History acetaminophen 325 mg capsule 650 mg PO Q4H PRN pain 07/04/24 10/26/24 Unknown History (Tylenol) albuterol sulfate 90 mcg/actuation 2 puff inhalation Q6H PRN 07/10/24 10/26/24 07/09/24 History aerosol inhaler shortness of breath or wheezing levothyroxine 175 mcg tablet 175 mcg PO DAILY 07/10/24 11/07/24 11/07/24 History Allergies Allergy/AdvReac Type Severity Reaction Status Date / Time vancomycin Allergy Intermediate Rash, Verified 11/15/24 15:59 itching Penicillins Allergy Mild Unknown Verified 11/15/24 15:59 Review of Systems 2 Review of Systems: All systems reviewed & are unremarkable except as noted in HPI and below Constitutional: Constitutional: Reports no additional constitutional complaints Cardiovascular: Cardiovascular: Reports no additional cardiovascular complaints Respiratory: Respiratory: Reports no additional respiratory complaints Integumentary/Breasts: Skin/Breast: Reports system reviewed and no additional complaints, except [facility] Past Medical History Medical History (Updated 11/15/24 @ 21:46 by Rico Israel MD) History of aortic dissection COVID-19 Influenza A H1N1 infection Prediabetes Chronic obstructive pulmonary disease Hyperlipidemia Hypertension ADHD Hypothyroidism Surgical History Surgical History History of nasal septoplasty 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 Code status: Full code. Smoking packs per day: 1 Smoking cigarettes per day: 20.0 Years smoked: 20 Smoking pack-years: 20.00 Smoking status: Never smoker Smoking end date: 07/04/20 Alcohol intake: former Substance use: never Substance use type: does not use Other substance usage details: smoke marijuana on occasions - recreational Do You Feel Safe in your Home?: Yes Lack of Transportation: No Lack of Food: Never True Current Housing: I Have Housing Concerned About Future Housing: No Difficulty Paying Gas/Electric Bills: No Difficulty Paying for Meds: No Currently Unemployed: No Education: High School Diploma/GED Difficulty w/ Childcare or Family Care: No Additional living arrangements comments: Lives with spouse in [place]. 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 Gender identity (if verbalized by the patient): Female Sexual Orientation (if Verbalized by the Patient): Lesbian, Jordan, or Homosexual Spiritual care concerns: No Exam 2 Narrative: GENERAL: Well-appearing, well-nourished, and in no acute distress. HEAD: Normocephalic, atraumatic. ENT: Mucous membranes moist. CHEST: Clear to auscultation. No respiratory distress. HEART: Regular rate and rhythm. Normal peripheral pulses. Breast: Left breast with healing surgical site left medial areolar aspect with induration and mild erythema/warmth. EXTREMITIES: Normal range of motion. No edema. SKIN: Warm, dry, no rash. NEURO: Alert and oriented x3. PSYCH: Normal mood and affect. Course Course Emergency Course: Discussed with General surgery, Dr. Link. Recommends incision and drainage or needle aspiration with 18 gauge. Patient prefers needle aspiration. Will need follow-up in clinic tomorrow at 8:30 a.m. and can be started on Keflex. After needle aspiration wounds and cultured patient given 1st dose of Keflex. Aspirate was very watery and was a yellow/red cloudy extra. Vital Signs Vital signs: Vital Signs Temperature 98.7 F 11/15/24 15:55 Pulse Rate 94 11/15/24 15:55 Respiratory Rate 20 11/15/24 15:55 Blood Pressure 132/59 L 11/15/24 15:55 Pulse Oximetry 98 11/15/24 15:55 Oxygen Delivery Room Air 11/15/24 15:55 Temperature 98.7 F 11/15/24 15:55 Pulse Rate 94 11/15/24 15:55 Respiratory Rate 20 11/15/24 15:55 Blood Pressure 132/59 L 11/15/24 15:55 Pulse Oximetry 98 11/15/24 15:55 Oxygen Delivery Room Air 11/15/24 15:55 Procedures Abscess I/D left breast: Date of Incision: 11/15/24 Time of Incision: 21:35 Side (if applicable): left Local Anesthetic: lidocaine 1% Amount of anesthesia used (mL): 6 Technique: needle aspiration Amount of fluid expressed (mL): 20 Irrigation: No Packing used?: none I&D Results: Pus, Blood and Other (watery) Medical Decision Making Vital Signs Vital Signs: Vital Signs Temperature 98.7 F 11/15/24 15:55 Pulse Rate 94 11/15/24 15:55 Respiratory Rate 20 11/15/24 15:55 Blood Pressure 132/59 L 11/15/24 15:55 Pulse Oximetry 98 11/15/24 15:55 Oxygen Delivery Room Air 11/15/24 15:55 Temperature 98.7 F 11/15/24 15:55 Pulse Rate 94 11/15/24 15:55 Respiratory Rate 20 11/15/24 15:55 Blood Pressure 132/59 L 11/15/24 15:55 Pulse Oximetry 98 11/15/24 15:55 Oxygen Delivery Room Air 11/15/24 15:55 Lab Data 11/15/24 17:09 11/15/24 17:10 Labs: Lab Results 11/15/24 11/15/24 Range/Units 17:09 17:10 WBC 12.2 H (4.5-10.0) K/mm3 RBC 4.12 L (4.2-5.4) M/mm3 Hgb 11.8 L (12.0-15.0) g/dL Hct 36.3 L (37.0-47.0) % MCV 88.1 (80-100) fl MCH 28.6 (26-34) pg MCHC 32.5 (32-36) g/dl RDW 13.3 (11.5-14.5) % Plt Count 307 (150-375) k/mm3 MPV 10.8 H (7.4-10.4) fl Immature Gran % (Auto) Not Reportable Neut % (Auto) Not Reportable Lymph % (Auto) Not Reportable Titus % (Auto) Not Reportable Eos % (Auto) Not Reportable Baso % (Auto) Not Reportable Lymph # (Auto) Not Reportable Titus # (Auto) Not Reportable Eos # (Auto) Not Reportable Baso # (Auto) Not Reportable Abs Immat Gran (auto) Not Reportable Absolute Neuts (auto) Not Reportable Absolute Nucleated RBC Not Reportable Total Counted 100 Neutrophils % (Manual) 73 (46-73) % Band Neutrophils % 1 (0-6) % Lymphocytes % (Manual) 16.0 L (18-44) % Monocytes % (Manual) 7 (3-9) % Eosinophils % (Manual) 2 (0-4) % Basophils % (Manual) 1 (0-1) % Nucleated RBC % Not Reportable Abs Neuts (Manual) 9.02 H (1.7-7.2) K/mm3 Abs Lymphs (Manual) 1.95 (1.1-4.5) K/mm3 Abs Monocytes (Manual) 0.85 (0.1-0.90) K/mm3 Absolute Eos (Manual) 0.24 (0.02-0.50) K/mm3 Abs Basophils (Manual) 0.12 H (0.0-0.1) K/mm3 Platelet Estimate Adequate (Adequate) Hypochromasia 1+ Schistocytes None seen Sodium 139 (137-145) mmol/L Potassium 4.1 (3.4-5.0) mmol/L Chloride 103 (98-107) mmol/L Carbon Dioxide 25 (22-30) mmol/L Anion Gap 11 (4-12) mmol/L BUN 17 (7-17) mg/dL Creatinine 0.81 (0.7-1.0) mg/dL Estim Creat Clear Calc 83 ml/min Estimated GFR > 60 (59 - ) Glucose 88 (65-110) mg/dL Lactic Acid 1.0 (0.7-2.0) mmol/L Calcium 9.8 (8.4-10.2) mg/dL Total Bilirubin 0.5 (0.2-1.3) mg/dL AST 25 (14-36) U/L ALT 25 (6-35) U/L Alkaline Phosphatase 82 (38-126) U/L Total Protein 8.0 (6.3-8.2) g/dL Albumin 4.6 (3.5-5.1) g/dL Imaging Data Radiologist's impression: ITS Impressions Chest CT 11/15/24 19:37 IMPRESSION: Abscess in the left breast subareolar area. Aortic dissection unchanged from previous examination. No acute cardiopulmonary pathology. Discharge Plan Discharge Clinical Impression: Abscess of breast Patient Disposition: Home Condition: Stable Instructions: Antibiotic Form, Abscess (ED) Additional Instructions: Go to the general surgery office tomorrow morning at 8:30 a.m. for further treatment and evaluation. Take Keflex for infection. Patient Language: Mongolian Prescriptions: New cephalexin 500 mg capsule 500 mg PO Q8H 10 Days Qty: 30 0RF No Action metformin 500 mg tablet 500 mg PO DAILY metoprolol tartrate 100 mg tablet 100 mg PO Q12H amlodipine 10 mg tablet 10 mg PO DAILY lisinopril 40 mg tablet 40 mg PO DAILY tizanidine 4 mg tablet 4 mg PO Q6H PRN (Reason: restless leg(s)) acetaminophen [Tylenol] 325 mg capsule 650 mg PO Q4H PRN (Reason: pain) albuterol sulfate 90 mcg/actuation HFA aerosol inhaler 2 puff INHALATION Q6H PRN (Reason: shortness of breath or wheezing) levothyroxine 175 mcg tablet 175 mcg PO DAILY ketorolac 10 mg tablet 10 mg PO Q6H 4 Days Qty: 16 0RF oxycodone-acetaminophen [Percocet] 5-325 mg tablet 0.5 - 1 tablet PO Q4H PRN (Reason: pain) Qty: 10 0RF Follow-up/Referrals: Diane,AARTI Scherer [Primary Care Provider] - Clemente Link MD [Physician] - 1 Week
[2024-11-15] MEDS: LIDOCAINE 1% LOCAL INJ 10 ML VIAL (21:59)
[2024-11-15] MEDS: CEPHALEXIN 500 MG CAPSULE PO (21:59)
[2024-11-15 22:03] VITALS: BP 136/62; PULSE 92; RESP 19; TEMP 36.6; O2SAT 98
== END 2024-11-15 22:05 | disposition home or self-care (01) ==
PROVIDERS: Emergency Provider Emergency Medicine; PCP Physician Assistant
DX: T81.41XA Infection following a procedure, superficial incisional surgical site, initial encounter (principal); N61.1 Abscess of the breast and nipple; E03.9 Hypothyroidism, unspecified; J44.9 Chronic obstructive pulmonary disease, unspecified; E78.5 Hyperlipidemia, unspecified; F17.210 Nicotine dependence, cigarettes, uncomplicated
CPT/HCPCS: 10060; 36415; 71260; 80053; 83605; 85025; 87070; 87205; 99284; A9270; J2003; Q9967

== ENCOUNTER 2024-11-23 00:33 | Day surgery (SDC) | payer BC, SELFPAY ==
[2024-11-19 12:58] VITALS: BMI 40.6
--- NOTE | 2024-11-19 13:04 | PC.NURSE ---
Addendum entered by Camila Her RN 11/21/24 09:34: Shannan called and aware of all info below, pt very busy at work and she will give her the info and pt will call back if any further questions or concerns STEF Addendum entered by Camila Her RN 11/21/24 09:31: Pt called, Left detailed message to return my call and confirm all instructions below and status reviewed. Await pt call back to confirm all and answer questions if needed STEF Report to the Outpatient Waiting Room, entrance under the green pavilion located off [facility], at time _1130am_ on date _[id number]_. Planned Procedure Time: _1:30pm_.? Take only the following medications with a SIP of water on the morning of surgery: ___Amlodipine, Metoprolol, Levothyroxine, Cephalexin and if needed Albuterol and or Tylenol. DO NOT STOP ANY OF YOUR OTHER PRESCRIPTION MEDICATIONS PRIOR TO SURGERY EXCEPT THE FOLLOWING Hold all vitamins and supplements for 3 days per anesthesiologist. Medications to discontinue per physician Date to take last dose Original Note: Report to the Outpatient Waiting Room, entrance under the martha pavilion located off [facility], at time _1200_ on date _[id number]_. Planned Procedure Time: _2pm_.? Time changes happen often and if your time is changed the preop area will call you the afternoon before. - You and your visitor will be asked to self-screen and do not enter if you have any COVID symptoms. Please call surgeon if you need to reschedule. - A mask is optional within the hospital at this time. Patients may have clear liquids (water, carbonated beverages, clear teas, apple juice) until 3 hours prior to surgery with a maximum of 20 ounces. - No food from midnight until time of surgery and no smoking, or chewing tobacco (or any form of nicotine). No chewing gum, candy or mints. Take only the following medications with a SIP of water on the morning of surgery: ___Amlodipine, Metoprolol, Levothyroxine, Cephalexin and if needed Albuterol and or Tylenol. DO NOT STOP ANY OF YOUR OTHER PRESCRIPTION MEDICATIONS PRIOR TO SURGERY EXCEPT THE FOLLOWING Hold all vitamins and supplements for 3 days per anesthesiologist. Medications to discontinue per physician Date to take last dose Please no make-up, nail tamazight, hairspray, perfume, deodorant, or body powder the day of surgery.? No jewelry (including any body piercings) or valuables the day of surgery, leave them at home.? Please take a shower or bath the night before, or the morning of, surgery with an antibacterial soap.? Wear comfortable, loose fitting clothing.? - Jewelry must be removed prior to entering the operating room.? Rings and piercings that are not removed may be cut off. - The hospital will not accept responsibility for valuables.? - Please leave all valuables, including medications, at home the day of surgery. If you are going home after surgery, a licensed sweeper driver must drive you home.? - NO public transportation without another adult if you receive anesthesia. - We recommend that an adult stay with you for 24 hours following discharge. - We also recommend that you do not drive, make important decision, drink alcoholic beverages, or take any drugs that were not prescribed by your health care provider for at least 24 hours after your discharge time. Follow any additional instructions given to you from your surgeon. Telephone instructions given to ___Heather__and asked if any additional questions and then verbalized understanding. Patient advised to call surgeon office or pre surgery nurse liaison [phone] if any additional questions.
[2024-11-23] VITALS (8 sets, daily range): BP systolic 101–150; BP diastolic 52–86; PULSE 57–80; RESP 12–20; TEMP 36.6–36.9; O2SAT 93–100; BMI 40.3
--- OUTSIDE RECORDS SUMMARY | 2024-11-23 00:36 | XMS_ITS | Data Portability ---
Author Organization [place] - [facility] [employer], Main Office Address [address] [place] [address] Assessment No assessment recorded. Plan of Treatment Reminders Order Date Submit Date Provider Last Modified By Organization Details Last Modified Time Details Appointments None recorded. Lab hemoglobin + hematocrit, blood 2022 023 [email or web address] [facility] (Lab), [address] [place], [address], 3 09:47:02 magnesium, serum or plasma 2022 023 [email or web address] [facility] (Lab), [address] [place], [address], 3 09:47:02 vitamin B12, serum 2022 023 [email or web address] [facility] (Lab), [address] [place], [address], 3 09:47:02 bun (blood urea nitrogen), serum or plasma 2022 023 [email or web address] 25 [facility] (Lab), [address] [place], [address], 3 09:47:02 creatinine, serum or plasma 2022 023 [email or web address] 25 [facility] (Lab), [address] [place], [address], 3 09:47:03 folate, RBC 2022 023 [email or web address] 25 [facility] (Lab), [address] [place], [address], 3 09:47:03 iron + total iron-bindin g capacity (TIBC), serum 2022 023 [email or web address] 25 [facility] (Lab), [address] [place], [address], 3 09:47:03 vitamin E, serum 2022 023 [email or web address] 25 [facility] (Lab), [address] [place], [address], 3 09:47:03 Referral None recorded. Procedures None recorded. Surgeries None recorded. Imaging None recorded. Medication Orders None recorded. Patient TargetsNo targets recorded. Patient InstructionsNo instructions recorded. Reason for Referral None Reported. Results Created Date Observation Date Name Description Value Unit Range Abnormal Flag Note LastModifiedBy Organization Detail LastModifiedTime 02/10/20 22 02/04/2022 home sleep study No observ ation record ed. [id number] [facility] [address] [place], [address], 2022 16:43:25 02/10/20 22 02/04/2022 home sleep study No observ ation record ed. [id number] [facility] [address] [place], [address], 2022 16:43:25 04/07/20 22 04/05/2022 polys omnog izaiah, titra tion study No observ ation record ed. [id number] Not Available 2022 16:43:25 04/12/20 22 04/05/2022 polys omnog izaiah, split night No observ ation record ed. [id number] [facility] [address] [place], [address], 2022 16:43:25 Result Notes None recorded. Problems Name Problem SNOMED Code Status Onset Date Resolution Date Notes Provider Name and Address Organization Details Recorded Time Nocturia 239590766 Active 023 Not Available [facility] 3 16:42:30 Periodic limb movement disorder 071368100 Active 023 Not Available [facility] 3 16:42:30 Sleep apnea 89522766 Active 022 Not Available [facility] 3 16:42:30 Fatigue 78733403 Active 023 Not Available [facility] 3 16:42:30 Notes:Medical History: Anxie ty/Depression Early REM onset Obesity with very severe OSAHS, AHI = 86, 02/04/22 Hypertension Hyperlipidemia T2DM PLMD Problem Notes None recorded. Procedures Surgical History None recorded. Imaging Results Imaging Date Name Status LastModified by Organiz [facility] Details LastModified Time 04/05/2022 polysomnogram, titration study completed [id number] Information not available 2022 16:43:25 04/05/2022 polysomnogram, split night completed [id number] [facility] [address] [place], [address], 2022 16:43:25 02/04/2022 home sleep study completed [id number] [facility] [address] [place], [address], 2022 16:43:25 02/04/2022 home sleep study completed [id number] [facility] Orders [address] [place], [address], 2022 16:43:25 Procedure Notes None recorded. Medical [...] % 97 % 66 /min 97.6 [degF] 644316. 61 g 122 mm[Hg] 68 mm[Hg] Not Available [facility] 3 16:42:19 Date Recorded Heart rate Oxygen saturation Oxygen saturation in Arterial blood by Pulse oximetry Body temperature Body weight Systolic blood pressure Diastolic blood pressure Provider Name and Address Organization Details Last Updated DateTime 2 66 /min 95 % 95 % 97.3 [degF] 91485.7 3 g 110 mm[Hg] 60 mm[Hg] Not Available [facility] 3 16:42:19 Date Recorded Body height Body temperature Heart rate Oxygen saturation Oxygen saturation in Arterial blood by Pulse oximetry Systolic blood pressure Diastolic blood pressure Provider Name and Address Organization Details Last Updated DateTime 3 154.94 cm 98.1 [degF] 62 /min 97 % 97 % 102 mm[Hg] 60 mm[Hg] Silvia Boyer [facility] [employer] [facility] 3 11:35:08 Date Recorded Body height Body temperature Provider N kodi and Address Organization Details Last Updated DateTime 05/16/2023 154.94 cm 97.9 [degF] Claudia Abreu [facility] [employer] [facility] 05/16/2023 09:58:49 Date Recorded Body weight Heart rate Oxygen saturation Oxygen saturation in Arterial blood by Pulse oximetry Systolic blood pressure Diastolic blood pressure Provider Name and Address Organization Details Last Updated DateTime 3 27467.2 1 g 67 /min 97 % 97 % 118 mm[Hg] 68 mm[Hg] Heather Alejandro RN [place] [employer] [facility] 3 10:03:26 Social History None recorded. Functional Status None recorded. Mental Status None recorded. Family History Nothing Reported. Medical History No medical history recorded. Gynecological HistoryNo gynecological history recorded. Obstetrics History GPAL:G 0 P 0 0 0 0 Past Encounters Encounter ID Performer Location Encounter Start Date Encounter Closed Date Diagnosis/Indication Diagnosis SNOMED-CT Code Diagnosis ICD10 Code Diagnosis Note [id number] [facility] [place] [address] [place] [address] 11/02/2021 00:00:00 11/02/2021 16:46:47 [id number] [facility] [place] [address] [place] [address] 08/23/2022 00:00:00 08/23/2022 12:35:25 [id number] [facility] [place] [address] [place] [address] 11/23/2022 11:26:00 11/23/2022 11:51:01 Periodic limb movement disorder 586654467 G47.61 PLMI 35 in [facility]Arous al index [facility] Sleep apnea 34230955 G47 .30 Home study completed 02/2022 with [...] in 6 months, PRN for concerns Fatigue 62978041 R53.83 Significan tly improved with PAP use Body mass index 40+ - severely obese 230344952 Z68.44 Discussed weight management .Healthy well balanced meals.Incr ease exercise, ideally 30 minutes most days of the week. [id number] Cyndy Meza, [facility] [place] [address] [place] [address] 05/16/2023 09:57:30 05/16/2023 11:17:30 Sleep apnea 45734163 G47.30 Home study completed 02/2022 with AHI [...] one year Periodic l imb movement disorder 726976551 G47.61 PLMI 35 in studyArous al index [...] [facility] (MEDICAID REPLACEMENT - HMO) [id number] Joanna Doherty [id number] 06 Joanna Doherty 05/16/2023 1 [facility] (MEDICAID REPLACEMENT - HMO) [id number] Joanna Doherty [id number] 06 Joanna Doherty Notes Date Note Type [...] study.She has never gotten this Cyndy Meza, TRANSMISSION INSPECTOR- [address] [facility], [place], [address], [place] [facility] [employer] 11/23/2022 13:39:11 05/16/2023 text/html Ms Doherty present [...] than what they will replace. Cyndy Meza, TRANSMISSION INSPECTOR- [address] [facility], [facility] [address], [place], [address], [place] [facility] [employer] 05/16/2023 11:08:29 OBGyn Episode No OBEpisode recorded.
[2024-11-23 12:09] LABS: Glucose Point of Care 90 mg/dl (65-105)
--- NOTE | 2024-11-23 14:25 | WPDHPUPDATE1 ---
History and Physical Update Update Date/Time: 11/23/24 14:25 History and Physical has been reviewed, including an updated exam of the patient. There are NO changes in the patient's condition. Risks, benefits, and alternatives have been discussed and questions answered. Patient agrees to proceed with procedure.
--- NOTE | 2024-11-23 14:32 | WPDANESEPPF ---
Anes - Initial Pre Proc Eval Procedure: Operation Date: 11/23/24 13:30 Proposed Procedures p Evacuation Wound Hematoma Left Breast - Clemente Link MD Date/Time: 11/23/24 14:32 Surgeon: Clemente Link MD Pre Op Diagnosis: Wound Hematoma Seroma Left Breast Patient Data Age: 44 Gender: F Height: 1.55 m Weight: 96.8 kg Last Vital Signs Temp 36.6 C 11/23/24 12:00 Pulse 68 11/23/24 12:00 Resp 16 11/23/24 12:00 BP 114/52 L 11/23/24 12:00 Pulse Ox 99 11/23/24 12:00 Allergies Allergy/AdvReac Type Severity Reaction Status Date / Time vancomycin Allergy Intermediate Rash, Verified 11/23/24 13:17 itching Penicillins Allergy Mild Unknown Verified 11/23/24 13:17 Home Medications ?Medication ?Instructions ?Recorded ?Confirmed ?Type amlodipine 10 mg tablet 10 mg PO DAILY 07/28/21 11/23/24 History lisinopril 40 mg tablet 40 mg PO DAILY 07/28/21 11/22/24 History metformin 500 mg tablet 500 mg PO DAILY 07/28/21 11/23/24 History metoprolol tartrate 100 mg tablet 100 mg PO Q12H 07/28/21 11/23/24 History tizanidine 4 mg tablet 4 mg PO Q6H PRN restless leg(s) 12/29/22 11/22/24 History acetaminophen 325 mg capsule 650 mg PO Q4H PRN pain 07/04/24 11/22/24 History (Tylenol) albuterol sulfate 90 mcg/actuation 2 puff inhalation Q6H PRN 07/10/24 11/22/24 History aerosol inhaler shortness of breath or wheezing levothyroxine 175 mcg tablet 175 mcg PO DAILY 07/10/24 11/23/24 History cephalexin 500 mg capsule 500 mg PO Q8H 10 days #30 caps 11/15/24 11/23/24 Rx Laboratory Tests 11/23/24 12:07 POC Capillary Glucose 90 mg/dl (65-105) Patient hx anesthesia problems: none Family hx anesthesia problems: none Results Review: All pre-operative results and documents have been reviewed as part of the pre-operative evaluation. COUNTS INCLUDE 234 BEDS AT THE [facility] Past Medical History Medical History (Updated 11/23/24 @ 07:07 by Raghavendra Cruz, ) ANGÉLICA (obstructive sleep apnea) History of aortic dissection COVID-19 Influenza A H1N1 infection Prediabetes Chronic obstructive pulmonary disease Hyperlipidemia Hypertension ADHD Hypothyroidism Surgical History Surgical History History of breast lump/mass excision 11/08/24 Subareolar excision of left breast mastitis Dr. 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 Code status: Full code. Smoking packs per day: 1 Smoking cigarettes per day: 20.0 Years smoked: 20 Smoking pack-years: 20.00 Smoking status: Never smoker Smoking end date: 07/04/20 Alcohol intake: former Substance use: never Substance use type: does not use Other substance usage details: smoke marijuana on occasions - recreational Do You Feel Safe in your Home?: Yes Lack of Transportation: No Lack of Food: Never True Current Housing: I Have Housing Concerned About Future Housing: No Difficulty Paying Gas/Electric Bills: No Difficulty Paying for Meds: No Currently Unemployed: No Education: High School Diploma/GED Difficulty w/ Childcare or Family Care: No Additional living arrangements comments: Lives with spouse in [place]. 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 Gender identity (if verbalized by the patient): Female Sexual Orientation (if Verbalized by the Patient): Lesbian, Jordan, or Homosexual Spiritual care concerns: No Anes - Eval Final PreProcedure Day of Procedure 11/23/24 14:32 Patient weight: morbidly obese Heart: regular rate and rhythm Lungs: clear to auscultation Airway: Mallampati scale class II Neurological: alert and oriented Last oral intake: >/= 8 hours ASA classification: III Emergent: no Anesthetic plan: proceed Anesthesia type and monitoring: general LMA and standard monitoring Results Review: All pre-operative results and documents have been reviewed as part of the pre-operative evaluation. Informed Consent: The patient's anesthetic plan and its attendant risks and benefits were discussed with the patient/family/POA. Questions were solicited and answers provided to the satisfaction of the patient/family/POA.
[2024-11-23] MEDS: ceFAZolin 2 GM/D5W 50 ML 2 GM/50 ML BAG IVPB (14:38)
--- NOTE | 2024-11-23 15:12 | SUR.OPER ---
Culture was sent to pathology and given to Michel
[2024-11-23] MEDS: BUPIVACAINE/EPINEPHRINE 0.5% 50 ML VIAL 10 ML INFILTRATE (15:19)
[2024-11-23] MEDS: LACTATED RINGERS 1,000 ML 30 ML IV CONT (15:27)
[2024-11-23] MEDS: fentaNYL CITRATE INJ (*CRX) 100 MCG/2 ML VIAL 25 MCG IV PUSH ×4 (15:42→15:55)
[2024-11-23 15:45] LABS: Glucose Point of Care 95 mg/dl (65-105)
--- NOTE | 2024-11-23 15:48 | W.PM.PROC2 ---
Procedure Note - Detailed Date of Procedure 11/23/24 Pre-op Diagnosis Wound Hematoma Seroma Left Breast Post-op Diagnosis Other (Infected hematoma left breast) Procedure Performed Evacuation hematoma seroma, incision and drainage complex left breast abscess Surgeon Clemente Link MD [employer] Technician Ekta Sepulveda [facility] Anesthesia General (LMA) and Local Indications Patient was having recurring swelling and pain from right breast wound. She had excision of right breast mastitis on 11/08/2024. Following this excision, she has had recurring drainage with painful swelling. She is taken to surgery now for evacuation of left breast hematoma/seroma Findings Cloudy yellow or inch fluid was noted coming from the wound when we 1st opened the old incision. This was cultured for aerobes and anaerobes and Gram stain. Once this cloudy fluid was removed she had more serosanguineous fluid and a large tract extending from the incision laterally well beyond the edge of her areola. No gross purulence was found. Some loose eschar and necrotic skin was noted at the edges of her previous incision. The eschar and some of the skin were removed. Description of Procedure Patient was taken to surgery and anesthesia was introduced with LMA. The left breast was prepped and draped. There was still some Exofin adhesive on the wound. I peeled the rest of this off and removed the loose eschar. There was some additional eschar and some necrotic skin that I then debrided. We then sprayed the breast with Betadine. I applied pressure to the breast to see if I could find an opening where the wound was draining. I could not. I then used a fine tip clamp and probed and area where the patient had previously told me there was drainage. This was successful and I was able to penetrate the skin and encountered orange yellow very cloudy fluid suspicious for infection. This was cultured for aerobes anaerobes and Gram stain. I drained as much of this as I could. We then probed the wound and found that there was a long opening from the medial incision on the edge of the areola towards the lateral edge of the areola. I opened a bit more of the wound, another cm and a half. I was then able to see the wound directly under the incision. This did not track medially at all. There was, however, a long tract going all the way past the areola and beyond into the upper outer quadrant of the breast. I was able to put a finger into this tract and did not feel there were any other tracts branching off of it. We irrigated this wound thoroughly. I anesthetized the skin in the upper outer quadrant of the breast. I then used a 15 Albanian Valentín drain and passed it through the tunnel in the breast and out the anesthetized area in the upper outer quadrant. The drain was cut to the appropriate length. The drain was also sutured securely to the skin of the breast in the upper outer quadrant. I removed any loose surge her other debris from the opening in the lower 3rd of the breast wound. I used subcuticular interrupted 4-0 Vicryl suture to reapproximate the breast incision. The drain was then placed to bulb suction. It held suction quite well. There was no significant concavity to the breast with the application of suction. We then cleaned the breast of the Betadine and other prep. Xeroform gauze was placed over the incision. Fluffs were placed over the Xeroform and over the drain exit site. The bandages were held in place with Medipore tape. Patient was then awakened and taken to recovery in good condition. Sponge and needle counts were correct x2. Estimated Blood Loss -5 Drains Yes (Fifteen Albanian Valentín drain) Packing No Pathology Other (Cultures of breast wound.) Complications None Condition Stable Disposition PACU [facility] Billing Surgery - Charge Forward: Surgery Billing (Evacuation left breast hematoma/seroma, incision and drainage left breast abscess)
[2024-11-23] MEDS: oxyCODONE HCL (*CRX) 5 MG TAB IR PO (16:15)
== END 2024-11-23 17:11 | disposition home or self-care (01) ==
PROVIDERS: PCP Physician Assistant; Visit Provider Surgery
PROC: (CPT 19020; principal; 2024-11-23 13:30)
DX: T81.41XA Infection following a procedure, superficial incisional surgical site, initial encounter (principal); N61.1 Abscess of the breast and nipple; Y83.8 Other surgical procedures as the cause of abnormal reaction of the patient, or of later complication, without mention of misadventure at the time of the procedure; R73.03 Prediabetes; Z79.84 Long term (current) use of oral hypoglycemic drugs; E66.01 Morbid (severe) obesity due to excess calories; Z68.41 Body mass index [BMI] 40.0-44.9, adult
CPT/HCPCS: 19020; 82948; 87070; 87075; 87205; A9270; J0690; J1100; J2003; J2250; J2405; J2704; J3010; J7120